=== PATIENT | female | born 1955 | race Caucasian/White ===

== ENCOUNTER → 2016-03-25 | Outpatient (CLI) | payer OTHER ==
[2016-03-25 17:07] LABS: BASOPHILS # (AUTO) 0.13 10*3/UL; BASOPHILS % (AUTO) 0.9 % (0-1); EOSINOPHILS % (AUTO) 2.3 % (0-8); HEMATOCRIT 47.8 % (37.0-47.0); HEMOGLOBIN 15.6 g/dL (12.0-16.0); IMM GRAN % (AUTO) 0.7 % (0-5); LYMPHOCYTES # (AUTO) 3.17 10*3/uL; LYMPHOCYTES % (AUTO) 21.7 % (10-50); MEAN CORPUSCULAR HEMOGLOBIN 29.1 PG (27-31); MEAN CORPUSCULAR HGB CONC 32.6 g/dL (33-37); MEAN PLATELET VOLUME 12.8 FL (7.4-12.2); MONOCYTES # (AUTO) 1.12 10*3/UL (0.3-0.8); MONOCYTES % (AUTO) 7.7 % (5-15); NEUTROPHILS # (AUTO) 9.76 10*3/UL; NEUTROPHILS % (AUTO) 66.7 % (50-80); RDW COEFFICIENT OF VARIATION 17.3 % (11.5-14.5); RED BLOOD COUNT 5.37 10^6/uL (4.20-5.40); WHITE BLOOD COUNT 14.61 10^3/uL (4.8-10.8)
[2016-03-25 17:16] LABS: CALCIUM 9.6 mg/dL (8.7-10.7); POTASSIUM 5.2 meq/L (3.8-5.2); TOTAL PROTEIN 8.8 g/dL (6.1-8.0)
[2016-03-25 18:12] LABS: PLATELET MORPHOLOGY COMMENT NORMAL MORPHOLOGY (NORM)
== END ==
LOC: MOB LAB 15:52
DX: E11.42 Type 2 diabetes mellitus with diabetic polyneuropathy (principal); Z79.4 Long term (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; E78.5 Hyperlipidemia, unspecified; I10 Essential (primary) hypertension; M86.671 Other chronic osteomyelitis, right ankle and foot; F17.210 Nicotine dependence, cigarettes, uncomplicated
CPT/HCPCS: 36415; 80053; 83036; 85025

== ENCOUNTER → 2016-03-27 | Outpatient (CLI) | payer OTHER | LOC: MMPC 10:00 | PROVIDERS: ATTEND Podiatrist Foot & Ankle Surgery | DX: L97.512 Non-pressure chronic ulcer of other part of right foot with fat layer exposed (principal); G62.89 Other specified polyneuropathies; L84 Corns and callosities; E11.621 Type 2 diabetes mellitus with foot ulcer; Z79.4 Long term (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; Z89.411 Acquired absence of right great toe; Z89.421 Acquired absence of other right toe(s) | CPT/HCPCS: 97597 ×2; G0463 ==

== ENCOUNTER 2016-03-28 19:29 | Emergency (ER) | payer OTHER ==
[2016-03-28] MEDS ORDERED: oxyCODONE ER 10 MG TAB PO ONE (20:02)
[2016-03-28] MEDS ORDERED: oxyCODONE ER Tab 20 MG TAB PO ONE (20:06)
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
[2016-03-28 20:28] VITALS: RESP 22; TEMP 97
== END 2016-03-28 21:55 | disposition home or self-care (01) ==
LOC: ER 19:29
DX: E11.40 Type 2 diabetes mellitus with diabetic neuropathy, unspecified (principal); M83.9 Adult osteomalacia, unspecified; Z79.4 Long term (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
CPT/HCPCS: 99282

== ENCOUNTER → 2016-04-11 | Outpatient (CLI) | payer OTHER | LOC: MMPC 10:00 | PROVIDERS: ATTEND Podiatrist Foot & Ankle Surgery | DX: L97.512 Non-pressure chronic ulcer of other part of right foot with fat layer exposed (principal); L97.522 Non-pressure chronic ulcer of other part of left foot with fat layer exposed; G62.89 Other specified polyneuropathies; E11.42 Type 2 diabetes mellitus with diabetic polyneuropathy; F17.210 Nicotine dependence, cigarettes, uncomplicated; E11.51 Type 2 diabetes mellitus with diabetic peripheral angiopathy without gangrene | CPT/HCPCS: 97597 ==

== ENCOUNTER → 2016-05-01 | Outpatient (CLI) | payer OTHER | LOC: MMPC 10:00 | PROVIDERS: ATTEND Podiatrist Foot & Ankle Surgery | DX: L84 Corns and callosities (principal); L97.511 Non-pressure chronic ulcer of other part of right foot limited to breakdown of skin; E13.51 Other specified diabetes mellitus with diabetic peripheral angiopathy without gangrene; E11.42 Type 2 diabetes mellitus with diabetic polyneuropathy; G62.89 Other specified polyneuropathies; E66.01 Morbid (severe) obesity due to excess calories; E11.621 Type 2 diabetes mellitus with foot ulcer; Z89.421 Acquired absence of other right toe(s); Z86.31 Personal history of diabetic foot ulcer; F17.210 Nicotine dependence, cigarettes, uncomplicated | CPT/HCPCS: 11056 ×2; G0463 ==

== ENCOUNTER 2016-05-03 16:24 | Emergency (ER) | payer OTHER ==
[2016-05-03 16:45] VITALS: RESP 16; TEMP 96.7
[2016-05-03] MEDS ORDERED: KETOROLAC 60 MG/2 ML VIAL IM ONE (16:45)
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
== END 2016-05-03 17:10 | disposition home or self-care (01) ==
LOC: ER 16:24
DX: G89.4 Chronic pain syndrome (principal); E11.40 Type 2 diabetes mellitus with diabetic neuropathy, unspecified; Z79.4 Long term (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
CPT/HCPCS: 96372; 99282 ×2; J1885

== ENCOUNTER → 2016-05-09 | Outpatient (CLI) | payer OTHER | LOC: MMPC 10:00 | PROVIDERS: ATTEND Podiatrist Foot & Ankle Surgery | DX: L97.521 Non-pressure chronic ulcer of other part of left foot limited to breakdown of skin (principal); L97.512 Non-pressure chronic ulcer of other part of right foot with fat layer exposed; E11.51 Type 2 diabetes mellitus with diabetic peripheral angiopathy without gangrene; E11.42 Type 2 diabetes mellitus with diabetic polyneuropathy; G62.89 Other specified polyneuropathies; E11.621 Type 2 diabetes mellitus with foot ulcer; Z89.431 Acquired absence of right foot | CPT/HCPCS: 99213; G0463 ==

== ENCOUNTER → 2016-05-23 | Outpatient (CLI) | payer OTHER | LOC: MMPC 10:00 | PROVIDERS: ATTEND Podiatrist Foot & Ankle Surgery | DX: L97.522 Non-pressure chronic ulcer of other part of left foot with fat layer exposed (principal); E13.51 Other specified diabetes mellitus with diabetic peripheral angiopathy without gangrene; E11.42 Type 2 diabetes mellitus with diabetic polyneuropathy; L97.511 Non-pressure chronic ulcer of other part of right foot limited to breakdown of skin; Z89.431 Acquired absence of right foot; G62.89 Other specified polyneuropathies | CPT/HCPCS: 97597 ×2; G0463 ==

== ENCOUNTER → 2016-05-29 | Outpatient (CLI) | payer OTHER | LOC: MMPC 09:00 | DX: G51.0 Bell's palsy (principal); F32.9 Major depressive disorder, single episode, unspecified; I34.0 Nonrheumatic mitral (valve) insufficiency; R11.0 Nausea; G62.89 Other specified polyneuropathies; E11.319 Type 2 diabetes mellitus with unspecified diabetic retinopathy without macular edema; E11.42 Type 2 diabetes mellitus with diabetic polyneuropathy; E13.51 Other specified diabetes mellitus with diabetic peripheral angiopathy without gangrene; E78.5 Hyperlipidemia, unspecified; I10 Essential (primary) hypertension; E55.9 Vitamin D deficiency, unspecified; G47.30 Sleep apnea, unspecified | CPT/HCPCS: 99213; G0463 ==

== ENCOUNTER → 2016-06-13 | Outpatient (CLI) | payer OTHER | LOC: MMPC 10:00 | PROVIDERS: ATTEND Podiatrist Foot & Ankle Surgery | DX: L97.511 Non-pressure chronic ulcer of other part of right foot limited to breakdown of skin (principal); L97.521 Non-pressure chronic ulcer of other part of left foot limited to breakdown of skin; E11.621 Type 2 diabetes mellitus with foot ulcer; Z89.411 Acquired absence of right great toe | CPT/HCPCS: 11042 ×2; G0463 ==

== ENCOUNTER → 2016-06-20 | Outpatient (CLI) | payer OTHER | LOC: MMPC 10:00 | PROVIDERS: ATTEND Podiatrist Foot & Ankle Surgery | DX: E11.621 Type 2 diabetes mellitus with foot ulcer (principal); G62.89 Other specified polyneuropathies; E66.01 Morbid (severe) obesity due to excess calories; Z89.431 Acquired absence of right foot; L97.512 Non-pressure chronic ulcer of other part of right foot with fat layer exposed; L97.522 Non-pressure chronic ulcer of other part of left foot with fat layer exposed | CPT/HCPCS: 99212; G0463 ==

== ENCOUNTER → 2016-06-27 | Outpatient (CLI) | payer OTHER | LOC: MMPC 10:00 | PROVIDERS: ATTEND Podiatrist Foot & Ankle Surgery | DX: L97.511 Non-pressure chronic ulcer of other part of right foot limited to breakdown of skin (principal); E11.621 Type 2 diabetes mellitus with foot ulcer; E11.40 Type 2 diabetes mellitus with diabetic neuropathy, unspecified; G62.89 Other specified polyneuropathies; Z89.411 Acquired absence of right great toe; Z89.421 Acquired absence of other right toe(s) | CPT/HCPCS: 99212; G0463 ==

== ENCOUNTER 2016-07-03 17:47 | Emergency (ER) | payer OTHER ==
[2016-07-03] MEDS ORDERED: Sodium Chloride 0.9% 1,000 ML PRIMARY IV ONE (18:13)
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
[2016-07-03 18:20] LABS: BASOPHILS # (AUTO) 0.09 10*3/UL; BASOPHILS % (AUTO) 0.5 % (0-1); EOSINOPHILS # (AUTO) 0.18 10*3/UL; EOSINOPHILS % (AUTO) 1.1 % (0-8); HEMATOCRIT 45.1 % (37.0-47.0); HEMOGLOBIN 14.4 g/dL (12.0-16.0); LYMPHOCYTES # (AUTO) 2.14 10*3/uL; MEAN CORPUSCULAR HEMOGLOBIN 29.1 PG (27-31); MEAN CORPUSCULAR HGB CONC 31.9 g/dL (33-37); MEAN CORPUSCULAR VOLUME 91.3 FL (81-99); MEAN PLATELET VOLUME 12.2 FL (7.4-12.2); MONOCYTES # (AUTO) 1.53 10*3/UL (0.3-0.8); MONOCYTES % (AUTO) 9.2 % (5-15); NEUTROPHILS # (AUTO) 12.59 10*3/UL; NEUTROPHILS % (AUTO) 75.7 % (50-80); RED BLOOD COUNT 4.94 10^6/uL (4.20-5.40)
[2016-07-03 18:21] LABS: PLATELET MORPHOLOGY COMMENT NORMAL MORPHOLOGY (NORM); RBC MORPHOLOGY COMMENT NORMAL MORPHOLOGY (NORM); WBC MORPHOLOGY COMMENT NORMAL MORPHOLOGY (NORM)
[2016-07-03 18:26] LABS: BUN/CREATININE RATIO 32.5 (6-20); CALCIUM 8.8 mg/dL (8.7-10.7); MAGNESIUM 1.9 mg/dL (1.6-2.4); SERUM ALBUMIN 3.8 g/dL (3.5-4.8)
[2016-07-03 18:48] LABS: FREE T4 (FREE THYROXINE) 1.22 ng/dL (0.93-1.71)
[2016-07-03] MEDS ORDERED: SODIUM POLYSTYRENE SULFONATE 15 GM/60 ML PO ONE (19:36)
[2016-07-03 19:43] LABS: BILIRUBIN,URINE SMALL (NEG); COLOR,URINE YELLOW; GLUCOSE, URINE (UA) NEGATIVE (NEG); NITRATE,URINE NEGATIVE (NEG); OCCULT BLOOD,URINE NEGATIVE (NEG); PROTEIN,URINE 30 mg/dl (NEG); UROBILINOGEN,URINE 0.2 EU/dL (0.2)
[2016-07-03 19:45] LABS: CLARITY,URINE CLEAR (CLEAR); URINE SAMPLE TYPE VOID
[2016-07-03 19:46] LABS: RBC,URINE 0-2 /hpf; SQUAMOUS EPITHELIAL CELL,UR FEW; WBC,URINE 0-3
[2016-07-03] MEDS ORDERED: cefTRIAXone Inj 2 GM in Sodium Chloride 0.9% 100 ML IV ONE (19:49)
[2016-07-03] MEDS ORDERED: AZITHROMYCIN 250 MG TABLET PO ONE (19:49)
--- NOTE | 2016-07-03 20:27 | EKG ---
[address] [address] Measurements Intervals [place] Rate: 85 P: 27 [place]: 201 QRS: -57 QRSD: 103 T: 53 QT: 363 QTc: 405 Interpretive Statements SINUS RHYTHM LEFT ANTERIOR FASCICULAR BLOCK Compared to ECG 08/03/2015 15:27:44 Left anterior fascicular block now present Electronically Signed On 07-04-16 11:47:22 MDT by Wicho Martin [email or web address]
--- NOTE | 2016-07-03 20:48 | DI ---
XR CXR 2VW PA/LAT,07/03/2016 7:08 PM: Clinical History: Cough Previous Exam: November 09, 2015 Findings: PA and lateral views of the chest are obtained, and demonstrate some increased interstitial markings. There is flattening of the hemidiaphragms bilaterally. There is mild cardiomegaly and some mild increased interstitial markings. Impression: 1. Cardiomegaly and increased interstitial markings most consistent with congestive heart failure.
[2016-07-03 23:26] VITALS: RESP 22; TEMP 99.2
== END 2016-07-03 20:41 | disposition short-term general hospital (02) ==
LOC: ER 17:47
DX: E87.5 Hyperkalemia (principal); I50.9 Heart failure, unspecified; J18.9 Pneumonia, unspecified organism; R42 Dizziness and giddiness; R05 Cough; R55 Syncope and collapse; E11.40 Type 2 diabetes mellitus with diabetic neuropathy, unspecified; Z79.4 Long term (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
CPT/HCPCS: 36415; 71020; 80053; 81001; 81003; 83605; 83735; 83880; 84439; 84443; 85025; 87040; 93005; 93010; 96365; 99284; J0696; J7030; J7050

== ENCOUNTER 2016-07-09 14:25 | Emergency (ER) | payer OTHER ==
[2016-07-09] MEDS ORDERED: NORMAL SALINE 10 ML SYRINGE FLUSH IVP PRN (14:35)
[2016-07-09] MEDS ORDERED: Sodium Chloride 0.9% 1,000 ML PRIMARY IV ONE ×2 (14:35→16:28)
[2016-07-09] MEDS ORDERED: IPRATROPIUM/ALBUTEROL SULFATE 3 ML NEB NEB ONE (14:55)
--- NOTE | 2016-07-09 15:04 | EKG ---
[address] [place] [address] Measurements Intervals [place] Rate: 65 P: 23 IN: 189 QRS: -36 QRSD: 104 T: 24 QT: 416 QTc: 428 Interpretive Statements SINUS RHYTHM LEFT AXIS DEVIATION [QRS AXIS CHRONIC ST ELEVATION NOTED IN LEADS 1 AND AVL QUESTIONABLE ETIOLOGY Compared to ECG 07/03/2016 18:02:29 Left-axis deviation now present Left anterior fascicular block no longer present Electronically Signed On 07-09-16 15:09:22 MDT by Wicho Martin [email or web address]
[2016-07-09 15:06] LABS: HEMATOCRIT 44.3 % (37.0-47.0); HEMOGLOBIN 13.9 g/dL (12.0-16.0); MEAN CORPUSCULAR HEMOGLOBIN 29.3 PG (27-31); MEAN CORPUSCULAR HGB CONC 31.4 g/dL (33-37); MEAN CORPUSCULAR VOLUME 93.3 FL (81-99); MEAN PLATELET VOLUME 12.2 FL (7.4-12.2); RED BLOOD COUNT 4.75 10^6/uL (4.20-5.40)
[2016-07-09 15:40] LABS: VENOUS PH 7.33 (7.32-7.42)
[2016-07-09 15:48] LABS: PLATELET MORPHOLOGY COMMENT NORMAL MORPHOLOGY (NORM); RBC MORPHOLOGY COMMENT NORMAL MORPHOLOGY (NORM)
[2016-07-09 15:49] LABS: WBC MORPHOLOGY COMMENT SEE COMMENTS (NORM)
[2016-07-09 15:50] LABS: BAND NEUTROPHILS % 0 % (0-10); BASOPHILS % (MANUAL) 0 % (0-1); EOSINOPHILS % (MANUAL) 2 % (0-8); LYMPHOCYTES % (MANUAL) 37 % (10-50); MONOCYTES % (MANUAL) 6 % (0-12); NEUTROPHILS % (MANUAL) 55 % (50-80)
[2016-07-09 16:12] LABS: BILIRUBIN,URINE NEGATIVE (NEG); COLOR,URINE YELLOW; GLUCOSE, URINE (UA) NEGATIVE (NEG); NITRATE,URINE NEGATIVE (NEG); OCCULT BLOOD,URINE Trace-lysed (NEG); PH,URINE 5.5 (5.0-8.5); PROTEIN,URINE NEGATIVE (NEG); UROBILINOGEN,URINE 0.2 EU/dL (0.2)
[2016-07-09 16:24] LABS: CLARITY,URINE CLEAR (CLEAR)
[2016-07-09 16:25] LABS: BACTERIA,URINE RARE; SQUAMOUS EPITHELIAL CELL,UR FEW; URINE CASTS RARE; URINE SAMPLE TYPE CLEAN CATCH URINE
--- NOTE | 2016-07-09 16:58 | DI ---
XR CXR 2VW PA/LAT,07/09/2016 2:35 PM: Clinical History: Hypoxia Previous Exam: July 03, 2016 Findings: PA and lateral views of the chest are obtained, and demonstrate stable healing right anterior rib fra ctures. There is stable cardiomegaly. There is no infiltrate nor effusion. Impression: No acute disease.
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
[2016-07-09 17:54] LABS: BLOOD UREA NITROGEN 58 mg/dL (7-22); BUN/CREATININE RATIO 41.42 (6-20); C-REACTIVE PROTEIN < 0.5 mg/dL (0.0-0.9); CALCIUM 8.6 mg/dL (8.7-10.7); EST GLOMERULAR FILTRATION 38 (>60 ml/min/1.73m(2)); MAGNESIUM 1.4 mg/dL (1.6-2.4); SERUM ALBUMIN 3.6 g/dL (3.5-4.8)
[2016-07-09] MEDS ORDERED: Magnesium Sulfate 1gm (Premix) 1 GM in Dextrose 1 BAG IV ONE (18:02)
[2016-07-09 18:04] VITALS: TEMP 96.4
[2016-07-09] MEDS ORDERED: Magnesium Sulfate 1gm (Premix) 100 ML IV ONE (18:21)
[2016-07-09 20:00] VITALS: RESP 18
== END 2016-07-09 19:42 | disposition home or self-care (01) ==
LOC: ER 14:25
DX: I95.9 Hypotension, unspecified (principal); E83.42 Hypomagnesemia; J44.9 Chronic obstructive pulmonary disease, unspecified; R06.02 Shortness of breath; R42 Dizziness and giddiness; R05 Cough; E11.40 Type 2 diabetes mellitus with diabetic neuropathy, unspecified; Z79.4 Long term (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
CPT/HCPCS: 36415; 71020; 80053; 81001; 81003; 82803; 82948; 83605; 83735; 83880; 84484; 85007; 85379; 86140; 93005; 93010; 94640; 96361; 96365; 99284 ×2; J7620; 87040; J3475; J7030

== ENCOUNTER → 2016-07-10 | Outpatient (CLI) | payer OTHER | LOC: MMPC 10:00 | PROVIDERS: ATTEND Podiatrist Foot & Ankle Surgery | DX: L97.512 Non-pressure chronic ulcer of other part of right foot with fat layer exposed (principal); L97.511 Non-pressure chronic ulcer of other part of right foot limited to breakdown of skin; L97.522 Non-pressure chronic ulcer of other part of left foot with fat layer exposed; E11.42 Type 2 diabetes mellitus with diabetic polyneuropathy; G62.89 Other specified polyneuropathies; Z89.421 Acquired absence of other right toe(s); F17.210 Nicotine dependence, cigarettes, uncomplicated | CPT/HCPCS: 97597 ×2; G0463 ==

== ENCOUNTER → 2016-07-16 | Outpatient (CLI) | payer OTHER | LOC: MMPC 11:11 | DX: J44.9 Chronic obstructive pulmonary disease, unspecified (principal); E11.21 Type 2 diabetes mellitus with diabetic nephropathy; E11.319 Type 2 diabetes mellitus with unspecified diabetic retinopathy without macular edema; E11.42 Type 2 diabetes mellitus with diabetic polyneuropathy; E78.5 Hyperlipidemia, unspecified; I10 Essential (primary) hypertension; I27.2 Other secondary pulmonary hypertension; E66.01 Morbid (severe) obesity due to excess calories; G47.30 Sleep apnea, unspecified | CPT/HCPCS: 99213; G0463 ==

== ENCOUNTER → 2016-07-23 | Outpatient (CLI) | payer OTHER ==
[2016-07-23 16:49] LABS: HEMOGLOBIN A1C 7.65 % (4.2-6.0)
[2016-07-23 16:54] LABS: BUN/CREATININE RATIO 29.09 (6-20)
[2016-07-23 16:55] LABS: CALCIUM 8.6 mg/dL (8.7-10.7)
== END ==
LOC: MOB LAB 15:51
DX: E11.9 Type 2 diabetes mellitus without complications (principal); E11.42 Type 2 diabetes mellitus with diabetic polyneuropathy; Z79.4 Long term (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; I10 Essential (primary) hypertension; F17.200 Nicotine dependence, unspecified, uncomplicated
CPT/HCPCS: 36415; 80048; 83036

== ENCOUNTER → 2016-07-25 | Outpatient (CLI) | payer OTHER | LOC: MMPC 10:00 | PROVIDERS: ATTEND Podiatrist Foot & Ankle Surgery | DX: L97.511 Non-pressure chronic ulcer of other part of right foot limited to breakdown of skin (principal); L97.421 Non-pressure chronic ulcer of left heel and midfoot limited to breakdown of skin; L97.521 Non-pressure chronic ulcer of other part of left foot limited to breakdown of skin; G62.89 Other specified polyneuropathies; E11.621 Type 2 diabetes mellitus with foot ulcer | CPT/HCPCS: 99212; G0463 ==

== ENCOUNTER → 2016-08-06 | Outpatient (CLI) | payer OTHER | LOC: MMPC 11:11 | DX: J44.9 Chronic obstructive pulmonary disease, unspecified (principal); G62.89 Other specified polyneuropathies; G47.30 Sleep apnea, unspecified; G51.0 Bell's palsy; E78.5 Hyperlipidemia, unspecified; E66.01 Morbid (severe) obesity due to excess calories; E55.9 Vitamin D deficiency, unspecified; E11.42 Type 2 diabetes mellitus with diabetic polyneuropathy; I34.0 Nonrheumatic mitral (valve) insufficiency; F17.210 Nicotine dependence, cigarettes, uncomplicated | CPT/HCPCS: 99213; G0463 ==

== ENCOUNTER → 2016-08-14 | Outpatient (CLI) | payer OTHER | LOC: MMPC 10:00 | PROVIDERS: ATTEND Podiatrist Foot & Ankle Surgery | DX: L97.821 Non-pressure chronic ulcer of other part of left lower leg limited to breakdown of skin (principal); L97.312 Non-pressure chronic ulcer of right ankle with fat layer exposed; G62.89 Other specified polyneuropathies | CPT/HCPCS: 99212 ==

== ENCOUNTER → 2016-08-22 | Outpatient (CLI) | payer OTHER | LOC: MMPC 10:00 | PROVIDERS: ATTEND Podiatrist Foot & Ankle Surgery | DX: L97.811 Non-pressure chronic ulcer of other part of right lower leg limited to breakdown of skin (principal); L97.421 Non-pressure chronic ulcer of left heel and midfoot limited to breakdown of skin; L97.511 Non-pressure chronic ulcer of other part of right foot limited to breakdown of skin; G62.89 Other specified polyneuropathies; E66.01 Morbid (severe) obesity due to excess calories; E11.621 Type 2 diabetes mellitus with foot ulcer; F17.210 Nicotine dependence, cigarettes, uncomplicated ==

== ENCOUNTER → 2016-09-12 | Outpatient (CLI) | payer OTHER | LOC: MMPC 10:00 | PROVIDERS: ATTEND Podiatrist Foot & Ankle Surgery | DX: E11.621 Type 2 diabetes mellitus with foot ulcer (principal); E11.42 Type 2 diabetes mellitus with diabetic polyneuropathy; L97.521 Non-pressure chronic ulcer of other part of left foot limited to breakdown of skin; E66.01 Morbid (severe) obesity due to excess calories; Z89.431 Acquired absence of right foot; G62.89 Other specified polyneuropathies; L97.221 Non-pressure chronic ulcer of left calf limited to breakdown of skin; L84 Corns and callosities; Z89.411 Acquired absence of right great toe | CPT/HCPCS: 11055 ×2; 99212; G0463 ==

== ENCOUNTER → 2016-09-19 | Outpatient (CLI) | payer OTHER | LOC: MMPC 10:00 | PROVIDERS: ATTEND Podiatrist Foot & Ankle Surgery | DX: L97.522 Non-pressure chronic ulcer of other part of left foot with fat layer exposed (principal); E11.621 Type 2 diabetes mellitus with foot ulcer; G62.89 Other specified polyneuropathies; S90.425A Blister (nonthermal), left lesser toe(s), initial encounter | CPT/HCPCS: 97597 ×2; G0463 ==

== ENCOUNTER 2016-09-29 15:00 | Emergency (ER) | payer OTHER ==
[2016-09-29] MEDS ORDERED: ONDANSETRON 4 MG/2 ML VIAL IVP ONE (15:17)
[2016-09-29] MEDS ORDERED: Sodium Chloride 0.9% 1,000 ML PRIMARY IV ONE (15:17)
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
[2016-09-29 15:26] VITALS: RESP 18; TEMP 95.1
[2016-09-29 15:41] LABS: BASOPHILS # (AUTO) 0.14 10*3/UL; BASOPHILS % (AUTO) 1.1 % (0-1); EOSINOPHILS # (AUTO) 0.23 10*3/UL; EOSINOPHILS % (AUTO) 1.9 % (0-8); HEMATOCRIT 42.9 % (37.0-47.0); HEMOGLOBIN 14.1 g/dL (12.0-16.0); LYMPHOCYTES # (AUTO) 2.07 10*3/uL; MEAN CORPUSCULAR HEMOGLOBIN 29.6 PG (27-31); MEAN CORPUSCULAR HGB CONC 32.9 g/dL (33-37); MEAN CORPUSCULAR VOLUME 89.9 FL (81-99); MEAN PLATELET VOLUME 12.9 FL (7.4-12.2); MONOCYTES # (AUTO) 1.23 10*3/UL (0.3-0.8); NEUTROPHILS # (AUTO) 8.57 10*3/UL; NEUTROPHILS % (AUTO) 69.6 % (50-80); RED BLOOD COUNT 4.77 10^6/uL (4.20-5.40)
[2016-09-29 15:52] LABS: BUN/CREATININE RATIO 32.72 (6-20); MAGNESIUM 1.8 mg/dL (1.6-2.4); SERUM ALBUMIN 3.7 g/dL (3.5-4.8)
[2016-09-29 15:57] LABS: PLATELET MORPHOLOGY COMMENT NORMAL MORPHOLOGY (NORM); RBC MORPHOLOGY COMMENT NORMAL MORPHOLOGY (NORM); WBC MORPHOLOGY COMMENT NORMAL MORPHOLOGY (NORM)
[2016-09-29 16:44] LABS: HEMOGLOBIN A1C 8.93 % (4.2-6.0)
--- NOTE | 2016-09-29 17:44 | DI ---
CLINICAL HISTORY: Syncope. PREVIOUS EXAM: July 09, 2016. FINDINGS/TECHNIQUE: A single frontal radiograph of the chest is obtained, and demonstrates diffuse C OPD. There is stable cardiomegaly. There is no evidence of infiltrate nor effusion. Skeletal structures are unremarkable. There are some increased interstitial markings which are stable . IMPRESSION: 1. No acute cardiopulmonary disease.
--- NOTE | 2016-09-29 17:45 | DI ---
CLINICAL HISTORY: Syncope. PREVIOUS EXAM: March 21, 2015. FINDINGS/TECHNIQUE: Multiple helically acquired CT images are obtained through the brain without con trast, and demonstrate normal, symmetric ventricles and other CSF containing spaces. There is no mass , hemorrhage or midline shift. The surrounding soft tissue and osseous structures are unremarkable. IMPRESSION: 1. Normal CT head.
--- NOTE | 2016-09-29 17:56 | EKG ---
[address] [place] [address] Measurements Intervals [place] Rate: 68 P: 59 AK: 195 QRS: -43 QRSD: 108 T: 35 QT: 428 QTc: 445 Interpretive Statements SINUS RHYTHM MARKED LEFT AXIS DEVIATION [QRS AXIS < -30] MINIMAL ST DEPRESSION [0.025+ mV ST DEPRESSION] Compared to ECG 07/09/2016 15:06:33 No significant changes Electronically Signed On 09-30-16 08:00:24 MDT by Bertin De La O MD [email or web address]
== END 2016-09-29 19:05 | disposition home or self-care (01) ==
LOC: ER 15:00
DX: R55 Syncope and collapse (principal); R11.2 Nausea with vomiting, unspecified; Z79.4 Long term (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; E11.40 Type 2 diabetes mellitus with diabetic neuropathy, unspecified
CPT/HCPCS: 70450; 71010; 80053; 83036; 83735; 84443; 84484; 85025; 93005; 93010; 96374; 99284 ×2; J2405; J7030

== ENCOUNTER → 2016-10-10 | Outpatient (CLI) | payer OTHER | LOC: MMPC 10:00 | PROVIDERS: ATTEND Podiatrist Foot & Ankle Surgery | DX: L97.421 Non-pressure chronic ulcer of left heel and midfoot limited to breakdown of skin (principal); L97.521 Non-pressure chronic ulcer of other part of left foot limited to breakdown of skin; L97.411 Non-pressure chronic ulcer of right heel and midfoot limited to breakdown of skin; G62.89 Other specified polyneuropathies; E11.51 Type 2 diabetes mellitus with diabetic peripheral angiopathy without gangrene; Z89.431 Acquired absence of right foot | CPT/HCPCS: 99213; G0463 ==

== ENCOUNTER 2017-01-16 15:01 | Inpatient (IN) ==
[2017-01-16] MEDS ORDERED: NORMAL SALINE 10 ML SYRINGE FLUSH IVP PRN ×2 (15:02→17:32)
[2017-01-16] MEDS ORDERED: Sodium Chloride 0.9% 1,000 ML PRIMARY IV ONE ×2 (15:02→16:24)
[2017-01-16 15:14] LABS: Hematocrit [HCT] 50.4 % (37.0-47.0); Hemoglobin [HGB] 17.3 g/dL (12.0-16.0); MEAN CORPUSCULAR HGB CONC 34.4 g/dL (33-37); MEAN CORPUSCULAR VOLUME 93 FL (81-99); MEAN PLATELET VOLUME 10.1 FL (7.4-12.2); NEUTROPHILS % (AUTO) 64.4 % (50-80); RED BLOOD COUNT 5.43 10^6/uL (4.20-5.40)
[2017-01-16 15:15] LABS: BASOPHILS % (AUTO) 1.2 % (0-1); EOSINOPHILS # (AUTO) 0.24 10*3/UL; EOSINOPHILS % (AUTO) 1.4 % (0-8); LYMPHOCYTES # (AUTO) 4.11 10*3/uL; MONOCYTES # (AUTO) 1.47 10*3/UL (0.3-0.8); MONOCYTES % (AUTO) 8.7 % (5-15); NEUTROPHILS # (AUTO) 10.89 10*3/UL; PLATELET MORPHOLOGY COMMENT NORMAL MORPHOLOGY (NORM); RBC MORPHOLOGY COMMENT NORMAL MORPHOLOGY (NORM); WBC MORPHOLOGY COMMENT NORMAL MORPHOLOGY (NORM)
[2017-01-16 15:24] LABS: BLOOD UREA NITROGEN 30 mg/dL (7-22); BUN/CREATININE RATIO 18.75 (6-20); MAGNESIUM 1.6 mg/dL (1.6-2.4); SERUM ALBUMIN 4.1 g/dL (3.5-4.8)
[2017-01-16 15:36] LABS: VENOUS PH 7.35 (7.32-7.42)
--- NOTE | 2017-01-16 15:53 | DI ---
EXAM: XR Chest, 1 View CLINICAL HISTORY: Physician Notes: Tech Comments: TECHNIQUE: Frontal view of the chest. COMPARISON: 09/29/16. FINDINGS/IMPRESSION: Once again, there is mild cardiomegaly. Suspect mild vascular congestion.
--- NOTE | 2017-01-16 15:55 | EKG ---
[address] [address] Measurements Intervals [place] Rate: 83 P: 61 [place]: 215 QRS: -51 QRSD: 102 T: 34 QT: 394 QTc: 434 Interpretive Statements SINUS RHYTHM WITH FIRST DEGREE AV BLOCK LEFT ANTERIOR FASCICULAR BLOCK NONSPECIFIC ST CHANGE IN LEADS 1 AND AVL Compared to ECG 09/29/2016 15:23:51 First degree AV block now present Left anterior fascicular block now present ST (T wave) deviation still present Electronically Signed On 01-17-17 17:22:21 [facility] by Wicho Martin [email or web address]
[2017-01-16] MEDS ORDERED: cefTRIAXone Inj 2 GM in Sodium Chloride 0.9% 100 ML IV ONE (16:09)
--- NOTE | 2017-01-16 16:28 | DI ---
EXAM: CT Head Without Intravenous Contrast CLINICAL HISTORY: Physician Notes: Tech Comments: TECHNIQUE: Axial computed tomography images of the head/brain without intravenous contrast. COMPARISON: 09/29/16 FINDINGS: Brain: Unremarkable. No hemorrhage. No significant white matter disease. No edema. Ventricles: Unremarkable. No ventriculomegaly. Bones/joints: Unremarkable. No acute fracture. Soft tissues: Unremarkable. Sinuses: Unremarkable as visualized. No acute sinusitis. Mastoid air cells: Unremarkable as visualized. No mastoid effusion. IMPRESSION: Normal head/brain CT.
--- NOTE | 2017-01-16 17:11 | PDOC ---
HPI - History of Present Illness History of Present Illness: Patient comes to the ER not feeling well and was very lightheaded confused some increased shortness of breath with trying to make Thanksgiving dinner she does report that she took 2 trazodone instead of her pain meds EMS saw her she was hypotensive with systolic blood pressure in the 60s at some confusion denies fever or chills vomiting abdominal pain she was started on antibiotics last week by Dr. Severino for foot ulcer which he debrided it debrided on the right heel and left great toe Past Medical History Medical History: 1. COPD. 2. Diabetes mellitus type II complicated by peripheral neuropathy. 3. Hypertension. 4. Tobacco abuse. 5. Chronic pain syndrome related to peripheral neuropathy. 6. Hormone replacement therapy status post hysterectomy with severe vasomotor symptoms. 7. 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 8. Hypercholesterolemia. 9. Renal insufficiency, stage II. 10. Chronic ulceration plantar right second metatarsal head. Apparently associated with osteomyelitis, on daptomycin currently. Surgical History: 1. Hysterectomy. 2. Carpal tunnel repair. 3. Artery repair on her right wrist. 4. Amputation of some toes on her right foot. 5. Appendectomy Pertinent Family History: Mother with complications of diabetes Past Social History: Smokes and states she's had for per day, doesn't drink, lives alone here in [place] she has 4 cats. No children. In the Past 12 Months, Have Used or Abuse Any of the Following Substance: None Medication / Allergies Home Medications: Home Medications Medication Instructions Recorded Confirmed Type Multivitamin [Daily Vitamin] 1 tab PO DAILY tab 11/03/13 01/16/17 History Pregabalin [Lyrica] 1 tab PO TID #90 cap 11/03/13 01/16/17 History Cholecalciferol (Vitamin D3) 1 cap PO QD #30 cap 05/19/14 01/16/17 History [Vitamin D3] Sertraline HCl [Zoloft] 1 tab PO DAILY #30 tab 09/12/14 01/16/17 History Blood Sugar Diagnostic [Contour] 1 strip IN 5XD #450 strip 09/01/15 01/16/17 History Omeprazole 1 cap PO QD PRN #30 cap 11/21/15 01/16/17 History Sodium Chloride [Wound Wash Saline] 210 ml MC BID #1 spray 01/02/16 01/16/17 Rx Pen Needle, Diabetic [Pen [place]] 1 ea MC BID #60 unit 02/13/16 01/16/17 Rx Albuterol Sulfate [Ventolin Hfa] 2 puff INH Q4-6H #1 inh 04/29/16 01/16/17 Rx Morphine Sulfate [Ms Contin] 1 tab PO TID #90 tab 05/29/16 01/16/17 History Furosemide [Lasix] 1 tab PO DAILY #90 tab 07/17/16 01/16/17 Rx Estrogens, Conj Vaginal Cream 1 gm VAGINAL DAILY #1 tube 10/18/16 01/16/17 Clinic [Premarin Vaginal Cream] Simvastatin 1 tab PO QD #90 tab 10/21/16 01/16/17 Clinic Sitagliptin Phos/Metformin HCl 1 tab PO BID #180 tab 10/21/16 01/16/17 Clinic [Janumet 50-1,000 Mg Tablet] Lisinopril 1 tab PO QD #30 tab 10/24/16 01/16/17 Clinic trazodone 50 mg tablet 50 mg PO QHS #30 tab 11/19/16 01/16/17 Rx montelukast 10 mg tablet 10 mg PO QHS #30 tab 12/05/16 01/16/17 Rx insulin aspar prt-insulin aspart 35 unit SUBCUT QPM #15 ml 12/06/16 01/16/17 Rx 100 unit/mL (70-30) subcutaneous soln insulin aspar prt-insulin aspart 40 unit SUBCUT QAM #15 ml 12/06/16 01/16/17 Rx 100 unit/mL (70-30) subcutaneous soln budesonide-formoterol HFA 160 2 puff INH BID #1 inh 12/23/16 01/16/17 Rx mcg-4.5 mcg/actuation aerosol inhaler estradiol 0.05 mg/24 hr weekly 1 patch TRANSDERM 2XW #1 box 12/23/16 01/16/17 Rx transdermal patch cephalexin 500 mg capsule 500 mg PO BID #30 cap 01/08/17 01/16/17 Rx chlorhexidine gluconate 4 % 1 applic TOPICAL ONCE #236 ml 01/08/17 01/16/17 Rx topical liquid tiotropium bromide 18 mcg capsule 18 mcg INH QD #30 inhaler 01/13/17 01/16/17 Rx with inhalation device Pva/Gentian Marlyn/Methyl Blue 0 unit .ROUTE .MEDSUPPLY 01/16/17 01/16/17 History [Hydrofera Blue 2"X2" Dressing] Allergies/Adverse Reactions: Allergies 3 Allergy/AdvReac Type Severity Reaction Status Date / Time adhesive Allergy RASH Verified 01/16/17 18:33 Review of Systems - Review of Systems All Systems: Reviewed & No Additional Complaints Except as Stated - Respiratory Respiratory: REPORTS: Cough - Cardiovascular Cardiovascular: DENIES: Negative System Review, Chest Pain, Edema, Syncope, Palpitations, Orthopnea, Paroxysmal Nocturnal Dyspnea, Other, See HPI - Gastrointestinal Gastrointestinal / Abdominal: DENIES: Negative System Review, Nausea, Vomiting, Diarrhea, Constipation, Abdominal Pain, Bloody Stool, Poor Appetite, Heartburn, Regurgitation, Bloating, Lactose Intolerance, Melena, Bright Red Blood per Rectum, Other, See HPI - Musculoskeletal Musculoskeletal: REPORTS: Other ( left great toe and right heel open wound does not look infected) Exam - Vitals Vital Signs: Vital Signs Height 5 ft 8 in Weight 250 lb - General General Appearance: No Acute Distress, Cooperative - Neck Neck Exam: Normal Inspection, Full ROM - Respiratory Respiratory Exam: POSITIVE: Clear to Auscultation - Bilaterally, Breathing Non Labored, Normal To Percussion - Cardiovascular Cardiovascular Exam: POSITIVE: RRR, No Murmur, No Clicks - GI/Abdominal GI/Abdominal Exam: POSITIVE: Normal Bowel Sounds, Non Tender, Non Distended - Extremities Additional Extremities Exam Details: Ulcers on her feet do not look infected - Neurological Neurological Exam: POSITIVE: Oriented x 3, Normal Gait, CN II-XII Intact Results - Labs CBC and BMP: 01/17/17 05:55 01/17/17 09:23 Assessment and Plan - Patient Problems (1) Elevated WBCs Current Visit: Yes Status: Acute Comment: Etiology unclear patient is hypotensive don't know if secondary to her narcotics which she said she took extra or from infection she does not have a left shift I will give her IV boluses of normal saline started on vancomycin and cefepime IV blood cultures were drawn in the ER I will also get x-rays of both of her feet since she has 2 open wounds ratio. It is not osteo Code(s): D72.829 - Elevated white blood cell count, unspecified (2) Acute kidney injury Current Visit: Yes Status: Acute Comment: Creatinine 1.6. Was as high as 2 she is dehydrated most likely prerenal and will hydrate the patient recheck. Hyperkalemia might also improve with hydration it is mild at present time Code(s): N17.9 - Acute kidney failure, unspecified (3) COPD (chronic obstructive pulmonary disease) Current Visit: No Status: Chronic Comment: She is wheezing bilaterally this could all be COPD exacerbation CT scan of the chest noncontrast expending to rule out pneumonia Code(s): J44.9 - Chronic obstructive pulmonary disease, unspecified Qualifiers: (4) Current tobacco use Current Visit: No Status: Chronic Onset Date: 03/21/14 Comment: Counseled on quitting the last time she was in the hospital she was smoking in the room Code(s): Z72.0 - Tobacco use (5) Hyperkalemia Current Visit: Yes Status: Acute Comment: Follow labs in 3 hours repeat CMP Code(s): E87.5 - Hyperkalemia (6) Dehydration Current Visit: Yes Status: Acute Comment: IV fluids Code(s): E86.0 - Dehydration
[2017-01-16] MEDS ORDERED: ALBUTEROL SULFATE 8.5 GM HFA INHALER INH SCH (17:32)
[2017-01-16] MEDS ORDERED: INSULIN ASPART PROT SUBCUT SCH (17:32)
[2017-01-16] MEDS ORDERED: Magnesium Sulfate 2gm (Premix) 2 GM/50 ML BAG IV ONE (17:32)
[2017-01-16] MEDS ORDERED: OMEPRAZOLE 20 MG CAPSULE PO PRN (17:32)
[2017-01-16] MEDS ORDERED: INSULN ASP SUBCUT SCH (17:32)
[2017-01-16] MEDS ORDERED: Cefepime Inj 2 GM in Sodium Chloride 0.9% 100 ML IV SCH (18:00)
--- NOTE | 2017-01-16 18:01 | DI ---
EXAM: CT Chest Without Intravenous Contrast CLINICAL HISTORY: Leukocytosis: TECHNIQUE: Axial computed tomography images of the chest without intravenous contrast. COMPARISON: Noncontrast chest CT of 05/22/15. FINDINGS: There is aortic atherosclerosis. No aneurysm. Lumen is not assessed without intravenous contrast. Once again, the central pulmonary arteries are enlarged, consistent with pulmonary hypertension. As noted previously, there is calcific coronary atherosclerosis. This involves the left main and anterior descending arteries. Trace anterior pericardial fluid versus thickening is similar to prior. There are redemonstrated calcified pulmonary nodules, largest to the medial lower lobes suggesting prior granulomatous exposure. Chronic medial RLL atelectasis. No definite acute infectious pulmonary infiltrate. Several scattered pulmonary blebs/air cysts. Small, nonspecific mediastinal lymph nodes are grossly stable in the interval. Stable small calcification in the lateral aspect of the left lobe of the thyroid gland. There is no acute fracture. Cervicothoracic spondylosis is similar to prior. IMPRESSION: No acute thoracic disease process is identified. Stable chronic changes as detailed above.
--- NOTE | 2017-01-16 18:25 | DI ---
EXAM: XR Right Foot Complete, 3 or More Views CLINICAL HISTORY: Wound TECHNIQUE: Frontal, lateral and oblique views of the right foot. COMPARISON: 10/27/15. FINDINGS: Once again, there is evidence of a transmetatarsal right foot amputation. There is no clear evidence of acute osteomyelitis at the amputated osseous margins. No acute fracture. No dislocation. Chronic deformities of the distal right tibial and fibular shafts are unchanged in the interval. Generalized osteopenia. Vascular calcification. IMPRESSION: No clear evidence of active/acute osteomyelitis at the transmetatarsal amputation margins.
[2017-01-16] MEDS: Sodium Chl 0.45% 1,000 ML PRIMARY IV SCH (18:52)
[2017-01-16] MEDS ORDERED: ALBUTEROL SULFATE 8.5 GM HFA INHALER INH PRN (19:03)
[2017-01-16] MEDS: MORPHINE SULFATE 30 MG PO SCH (20:07)
[2017-01-16] MEDS: oxyCODONE-ACETAMINOPHEN 5-325 TAB PO PRN (20:20)
[2017-01-16] MEDS: Chlorhexidine Gluc Soap 4% 15 ML LIQUID TOPICAL SCH (20:58)
[2017-01-16] MEDS: sitaGLIPtin Tab 100 MG TAB PO SCH (20:59)
[2017-01-16] MEDS ORDERED: Montelukast Tab 10 MG TAB PO SCH (21:00)
[2017-01-16] MEDS: metFORMIN 500 MG TABLET PO SCH (21:00)
[2017-01-16] MEDS: PREGABALIN 100 MG CAPSULE PO SCH (21:00)
[2017-01-16] MEDS ORDERED: Simvastatin Tab 80 MG TAB PO SCH (21:00)
[2017-01-16] MEDS ORDERED: traZODone Tab 50 MG TAB PO SCH (21:00)
[2017-01-16] MEDS ORDERED: FORMOTEROL FUMARATE INH SCH (21:00)
[2017-01-16] MEDS ORDERED: BUDESONIDE INH SCH (21:00)
[2017-01-16] MEDS: HYDROmorphone 2 MG/1 ML IVP PRN (21:55)
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
[2017-01-17] MEDS: oxyCODONE-ACETAMINOPHEN 5-325 TAB PO PRN ×4 (00:10→13:40)
[2017-01-17 00:39] LABS: BUN/CREATININE RATIO 19.37 (6-20); SERUM ALBUMIN 3.1 g/dL (3.5-4.8)
[2017-01-17] MEDS: Sodium Chl 0.45% 1,000 ML PRIMARY IV SCH (03:53)
[2017-01-17] MEDS: BUDESONIDE INH SCH ×3 (04:51→09:54)
[2017-01-17] MEDS: FORMOTEROL FUMARATE INH SCH ×3 (04:51→09:54)
[2017-01-17] MEDS: HYDROmorphone 2 MG/1 ML IVP PRN (06:12)
[2017-01-17] MEDS ORDERED: TIOTROPIUM BROMIDE 18 MCG CAPSULE INH SCH (07:00)
[2017-01-17] MEDS ORDERED: sitaGLIPtin Tab 100 MG TAB PO SCH (07:00)
[2017-01-17 07:08] LABS: BASOPHILS # (AUTO) 0.08 10*3/UL; BASOPHILS % (AUTO) 0.7 % (0-1); EOSINOPHILS % (AUTO) 1.8 % (0-8); Hematocrit [HCT] 41.6 % (37.0-47.0); Hemoglobin [HGB] 14.2 g/dL (12.0-16.0); LYMPHOCYTES # (AUTO) 2.08 10*3/uL; MEAN CORPUSCULAR HEMOGLOBIN 31.3 PG (27-31); MEAN CORPUSCULAR VOLUME 92 FL (81-99); MEAN PLATELET VOLUME 10.1 FL (7.4-12.2); MONOCYTES # (AUTO) 1.15 10*3/UL (0.3-0.8); MONOCYTES % (AUTO) 10.4 % (5-15); NEUTROPHILS # (AUTO) 7.55 10*3/UL; NEUTROPHILS % (AUTO) 68.3 % (50-80); PLATELET MORPHOLOGY COMMENT NORMAL MORPHOLOGY (NORM); RBC MORPHOLOGY COMMENT NORMAL MORPHOLOGY (NORM); RED BLOOD COUNT 4.52 10^6/uL (4.20-5.40); WBC MORPHOLOGY COMMENT NORMAL MORPHOLOGY (NORM)
[2017-01-17] MEDS: INSULN ASP SUBCUT SCH ×2 (07:09→10:33)
[2017-01-17] MEDS: INSULIN ASPART PROT SUBCUT SCH ×2 (07:09→10:33)
[2017-01-17 07:54] VITALS: O2SAT 92
[2017-01-17] MEDS ORDERED: Cefepime Inj 2 GM in Sodium Chloride 0.9% 100 ML IV SCH (08:00)
[2017-01-17] MEDS: sitaGLIPtin Tab 100 MG TAB PO SCH (08:13)
[2017-01-17] MEDS: PREGABALIN 100 MG CAPSULE PO SCH (08:13)
[2017-01-17] MEDS: metFORMIN 500 MG TABLET PO SCH (08:13)
[2017-01-17] MEDS: MORPHINE SULFATE 30 MG PO SCH (08:14)
[2017-01-17] MEDS ORDERED: Multivitamin Tab 1 TAB PO SCH (09:00)
[2017-01-17] MEDS ORDERED: ESTROGENS,CONJUGATED 30 GM CREAM VAGINAL SCH (09:00)
[2017-01-17] MEDS ORDERED: Chlorhexidine Gluc Soap 4% 15 ML LIQUID TOPICAL SCH ×2 (09:00→09:15)
[2017-01-17] MEDS ORDERED: FUROSEMIDE 20 MG TABLET PO SCH (09:00)
[2017-01-17] MEDS ORDERED: Sertraline Tab 50 MG TAB PO SCH (09:00)
[2017-01-17] MEDS ORDERED: CHOLECALCIFEROL 1000 IU TABLET PO SCH (09:00)
[2017-01-17 10:03] LABS: SERUM ALBUMIN 3.2 g/dL (3.5-4.8)
[2017-01-17] MEDS: Chlorhexidine Gluc Soap 4% 15 ML LIQUID TOPICAL SCH (10:41)
--- NOTE | 2017-01-17 12:23 | DCSUMMARY ---
Hospitalization Summary Hospital Course: Final Discharge Diagnosis: Current Visit Problems Problem Status Onset Code Acute kidney injury Acute N17.9 Hyperkalemia Acute E87.5 Dehydration Acute E86.0 Elevated WBCs Acute D72.829 Hypotension Acute I95.9 Diabetes Chronic E11.9 Renal insufficiency Chronic N28.9 Diagnostic Data, Laboratory Data, and Procedures of Signifigance: Laboratory Results 01/16/17 01/16/17 01/16/17 Range/Units 14:25 14:25 14:25 WBC 16.9 H (4.8-10.8) 10^3/uL RBC 5.43 H (4.20-5.40) 10^6/uL Hgb 17.3 H (12.0-16.0) g/dL Hct 50.4 H (37.0-47.0) % MCV 93 (81-99) FL MCH 32.0 H (27-31) PG MCHC 34.4 (33-37) g/dL RDW Coeff of Gus 13.1 (11.5-14.5) % Plt Count 201 (140-350) 10*3/uL MPV 10.1 (7.4-12.2) FL Neut % (Auto) 64.4 (50-80) % Lymph % (Auto) 24.3 (10-50) % [place] % (Auto) 8.7 (5-15) % Eos % (Auto) 1.4 (0-8) % Baso % (Auto) 1.2 H (0-1) % Neut # (Auto) 10.89 10*3/UL Lymph # (Auto) 4.11 10*3/uL [place] # (Auto) 1.47 H (0.3-0.8) 10*3/UL Eos # (Auto) 0.24 10*3/UL Baso # (Auto) 0.20 10*3/UL WBC Morphology Comment Normal morphology (NORM) Plt Morphology Comment Normal morphology (NORM) RBC Morph Comment Normal morphology (NORM) VBG pH (7.32-7.42) VBG pCO2 (45-55) mmHg VBG HCO3 (22-26) mmol/L VBG Base Excess (-2-2) MMOL/L Sodium 138 (135-145) meq/L Potassium 5.7 H (3.8-5.2) meq/L Chloride 103 (98-112) meq/L Carbon Dioxide 20 L (23-33) meq/L Anion Gap 15 (5-20) BUN 30 H (7-22) mg/dL Creatinine 1.6 H (0.50-1.20) mg/dL Estimated GFR 33 (>60 ml/min/1.73m(2)) BUN/Creatinine Ratio 18.75 (6-20) Glucose 187 H (78-110) mg/dL Calculated Osmolality 296.0 H (267-292) mOsm/kg Lactic Acid 2.5 H (0.70-2.10) MMOL/L Calcium 9.4 (8.7-10.7) mg/dL Magnesium 1.6 (1.6-2.4) mg/dL Total Bilirubin 1.1 (0.3-1.2) mg/dL AST 42 H (8-39) IU/L ALT 19 (9-52) IU/L Alkaline Phosphatase 110 (38-126) IU/L Troponin I < 0.012 (< 0.040) ng/mL C-Reactive Protein 1.0 H (0.0-0.9) mg/dL NT-Pro-B Natriuret Pep (0-125) PG/ML Total Protein 8.6 H (6.1-8.0) g/dL Albumin 4.1 (3.5-4.8) g/dL Globulin 4.5 H (2.50-4.10) g/dL Albumin/Globulin Ratio 0.90 L (1.3-2.0) mg/g Serum Alcohol < 10 (0-10) mg/dL 01/16/17 01/16/17 01/17/17 Range/Units 15:02 15:18 00:25 WBC (4.8-10.8) 10^3/uL RBC (4.20-5.40) 10^6/uL Hgb (12.0-16.0) g/dL Hct (37.0-47.0) % MCV (81-99) FL MCH (27-31) PG MCHC (33-37) g/dL RDW Coeff of Gus (11.5-14.5) % Plt Count (140-350) 10*3/uL MPV (7.4-12.2) FL Neut % (Auto) (50-80) % Lymph % (Auto) (10-50) % [place] % (Auto) (5-15) % Eos % (Auto) (0-8) % Baso % (Auto) (0-1) % Neut # (Auto) 10*3/UL Lymph # (Auto) 10*3/uL [place] # (Auto) (0.3-0.8) 10*3/UL Eos # (Auto) 10*3/UL Baso # (Auto) 10*3/UL WBC Morphology Comment (NORM) Plt Morphology Comment (NORM) RBC Morph Comment (NORM) VBG pH 7.35 (7.32-7.42) VBG pCO2 41 L (45-55) mmHg VBG HCO3 23 (22-26) mmol/L VBG Base Excess -3 L (-2-2) MMOL/L Sodium 140 (135-145) meq/L Potassium 4.6 D (3.8-5.2) meq/L Chloride 107 (98-112) meq/L Carbon Dioxide 23 (23-33) meq/L Anion Gap 10 (5-20) BUN 31 H (7-22) mg/dL Creatinine 1.6 H (0.50-1.20) mg/dL Estimated GFR 33 (>60 ml/min/1.73m(2)) BUN/Creatinine Ratio 19.37 (6-20) Glucose 116 H (78-110) mg/dL Calculated Osmolality 297.0 H (267-292) mOsm/kg Lactic Acid (0.70-2.10) MMOL/L Calcium 8.1 L (8.7-10.7) mg/dL Magnesium (1.6-2.4) mg/dL Total Bilirubin 0.4 D (0.3-1.2) mg/dL AST 21 (8-39) IU/L ALT 25 (9-52) IU/L Alkaline Phosphatase 72 (38-126) IU/L Troponin I (< 0.040) ng/mL C-Reactive Protein (0.0-0.9) mg/dL NT-Pro-B Natriuret Pep 540 H (0-125) PG/ML Total Protein 6.5 (6.1-8.0) g/dL Albumin 3.1 L (3.5-4.8) g/dL Globulin 3.4 (2.50-4.10) g/dL Albumin/Globulin Ratio 0.90 L (1.3-2.0) mg/g Serum Alcohol (0-10) mg/dL 01/17/17 01/17/17 01/17/17 Range/Units 05:55 09:23 09:23 WBC 11.0 H (4.8-10.8) 10^3/uL RBC 4.52 (4.20-5.40) 10^6/uL Hgb 14.2 (12.0-16.0) g/dL Hct 41.6 (37.0-47.0) % MCV 92 (81-99) FL MCH 31.3 H (27-31) PG MCHC 34.0 (33-37) g/dL RDW Coeff of Gus 13.5 (11.5-14.5) % Plt Count 120 L (140-350) 10*3/uL MPV 10.1 (7.4-12.2) FL Neut % (Auto) 68.3 (50-80) % Lymph % (Auto) 18.8 (10-50) % [place] % (Auto) 10.4 (5-15) % Eos % (Auto) 1.8 (0-8) % Baso % (Auto) 0.7 (0-1) % Neut # (Auto) 7.55 10*3/UL Lymph # (Auto) 2.08 10*3/uL [place] # (Auto) 1.15 H (0.3-0.8) 10*3/UL Eos # (Auto) 0.20 10*3/UL Baso # (Auto) 0.08 10*3/UL WBC Morphology Comment Normal morphology (NORM) Plt Morphology Comment Normal morphology (NORM) RBC Morph Comment Normal morphology (NORM) VBG pH (7.32-7.42) VBG pCO2 (45-55) mmHg VBG HCO3 (22-26) mmol/L VBG Base Excess (-2-2) MMOL/L Sodium 142 (135-145) meq/L Potassium 4.8 (3.8-5.2) meq/L Chloride 106 (98-112) meq/L Carbon Dioxide 24 (23-33) meq/L Anion Gap 12 (5-20) BUN 30 H (7-22) mg/dL Creatinine 1.2 (0.50-1.20) mg/dL Estimated GFR 46 (>60 ml/min/1.73m(2)) BUN/Creatinine Ratio 25.00 H (6-20) Glucose 168 H (78-110) mg/dL Calculated Osmolality 303.0 H (267-292) mOsm/kg Lactic Acid 0.7 (0.70-2.10) MMOL/L Calcium 8.8 (8.7-10.7) mg/dL Magnesium (1.6-2.4) mg/dL Total Bilirubin 0.4 (0.3-1.2) mg/dL AST 21 (8-39) IU/L ALT 24 (9-52) IU/L Alkaline Phosphatase 79 (38-126) IU/L Troponin I (< 0.040) ng/mL C-Reactive Protein (0.0-0.9) mg/dL NT-Pro-B Natriuret Pep (0-125) PG/ML Total Protein 6.5 (6.1-8.0) g/dL Albumin 3.2 L (3.5-4.8) g/dL Globulin 3.3 (2.50-4.10) g/dL Albumin/Globulin Ratio 0.90 L (1.3-2.0) mg/g Serum Alcohol (0-10) mg/dL History and Physical pertinent to Admission: Course of Hospitalization: This very nice 61-year-old female with multiple medical issues including diabetes chronic pain, was found to be used at home by EMS hypotension which resolved very quickly on my evaluation in the ER patient was awake alert and oriented 3 she felt her normal self she did have a white count. And some elevated creatinine which I believe is all prerenal. Lactic acid 0.7 her ulcers in bilateral feet do not look infected Dr. Severino debrided one of them and put her on some Keflex. Patient was rehydrated blood pressure and vitals are within normal limits her potassium is within normal limits and the BUN and creatinine back to 31.2 from 1.6 after hydration patient is very adamant about leaving and going home she does not want to be here. X-rays of the left foot did not show any osteo-x-ray of the right foot is pending. She will be put on Keflex 1 g every 8 for 10 days follow-up with Dr. Severino and follow-up with a new primary care physician Dr. Raygoza. She was very adamant on leaving no matter what she is stable at present time with stable vitals and improvement and all her blood work she did receive the 1 dose of cefepime and Vanco which were stopped in the past her ulcers were grown Proteus mirabilis which are sensitive to Keflex On the date of discharge, the patient was examined: Gen.: No acute distress, alert, nontoxic Heart: Regular rate and rhythm, no murmurs, clicks, gallops, or rubs Lungs: Clear to auscultation bilaterally, breathing is nonlabored Abdomen/GI: Normal tones on auscultation, soft, nontender, nondistended Musculoskeletal/extremities: No clubbing, cyanosis, or edema Vitals reviewed and are listed below Vital Signs (24 hrs) Temp Pulse Pulse Resp BP Pulse Ox 01/17/17 07:53 97.1 F 68 18 120/78 92 01/17/17 05:00 94 01/17/17 04:01 97.9 F 64 22 128/68 93 01/17/17 00:03 97.2 F 20 106/59 95 01/16/17 20:39 97.6 F 70 20 105/66 100 01/16/17 20:08 94 01/16/17 17:35 97.4 F 83 20 125/67 92 01/16/17 15:50 83 01/16/17 15:01 96.6 F L 118 H 14 60/40 92 Assessment and Plan: 1. As per discharge assessments above 2. Disposition: Home 3. Condition on discharge, stable and improved. 4. Diet: regular diet 5. Activities: resume normal activities 6. Follow-Up: 1. PCP Dr. Raygoza and Dr. Severino 2. 7. Medications at the Time of Discharge: Home Medications Medication Instructions Recorded Confirmed Type Multivitamin [Daily Vitamin] 1 tab PO DAILY tab 11/03/13 01/16/17 History Pregabalin [Lyrica] 1 tab PO TID #90 cap 11/03/13 01/16/17 History Cholecalciferol (Vitamin D3) 1 cap PO QD #30 cap 05/19/14 01/16/17 History [Vitamin D3] Sertraline HCl [Zoloft] 1 tab PO DAILY #30 tab 09/12/14 01/16/17 History Blood Sugar Diagnostic [Contour] 1 strip IN 5XD #450 strip 09/01/15 01/16/17 History Omeprazole 1 cap PO QD PRN #30 cap 11/21/15 01/16/17 History Sodium Chloride [Wound Wash Saline] 210 ml MC BID #1 spray 01/02/16 01/16/17 Rx Pen Needle, Diabetic [Pen [place]] 1 ea MC BID #60 unit 02/13/16 01/16/17 Rx Albuterol Sulfate [Ventolin Hfa] 2 puff INH Q4-6H #1 inh 04/29/16 01/16/17 Rx Morphine Sulfate [Ms Contin] 1 tab PO TID #90 tab 05/29/16 01/16/17 History Furosemide [Lasix] 1 tab PO DAILY #90 tab 07/17/16 01/16/17 Rx Estrogens, Conj Vaginal Cream 1 gm VAGINAL DAILY #1 tube 10/18/16 01/16/17 Clinic [Premarin Vaginal Cream] Simvastatin 1 tab PO QD #90 tab 10/21/16 01/16/17 Clinic Sitagliptin Phos/Metformin HCl 1 tab PO BID #180 tab 10/21/16 01/16/17 Clinic [Janumet 50-1,000 mg Tablet] Lisinopril 1 tab PO QD #30 tab 10/24/16 01/16/17 Clinic montelukast 10 mg tablet 10 mg PO QHS #30 tab 12/05/16 01/16/17 Rx insulin aspar prt-insulin aspart 35 unit SUBCUT QPM #15 ml 12/06/16 01/16/17 Rx 100 unit/mL (70-30) subcutaneous soln insulin aspar prt-insulin aspart 40 unit SUBCUT QAM #15 ml 12/06/16 01/16/17 Rx 100 unit/mL (70-30) subcutaneous soln budesonide-formoterol HFA 160 2 puff INH BID #1 inh 12/23/16 01/16/17 Rx mcg-4.5 mcg/actuation aerosol inhaler estradiol 0.05 mg/24 hr weekly 1 patch TRANSDERM 2XW #1 box 12/23/16 01/16/17 Rx transdermal patch chlorhexidine gluconate 4 % 1 applic TOPICAL ONCE #236 ml 01/08/17 01/16/17 Rx topical liquid tiotropium bromide 18 mcg capsule 18 mcg INH QD #30 inhaler 01/13/17 01/16/17 Rx with inhalation device Pva/Gentian Marlyn/Methyl Blue 0 unit .ROUTE .MEDSUPPLY 01/16/17 01/16/17 History [Hydrofera Blue 2"X2" Dressing] Cephalexin [Keflex] 1,000 mg PO TID #60 cap 01/17/17 Rx Insulin Aspart Prot/Insuln Asp 0 unit SUBCUT AC BK 01/17/17 Rx [Novolog Mix 70-30 Vial] Sertraline HCl [Zoloft] 100 mg PO DAILY tab 01/17/17 Rx 3 Generic Name Dose Route Start Last Admin Trade Name Freq PRN Reason Stop Dose Admin Albuterol Sulfate 2 puff 01/16/17 19:03 01/17/17 06:42 Proair Hfa Inhaler INH 2 puff RTQ4H PRN Administration Wheezing / Shortness of Breath Cephalexin 1,000 mg 01/17/17 15:00 Keflex PO TID SHERIDAN Chlorhexidine Gluconate 0 ml 01/17/17 09:15 01/17/17 10:37 Hibiclens Cleanser 4% TOPICAL 15 ml BID SHERIDAN Administration Cholecalciferol 2,000 iu 01/17/17 09:00 01/17/17 08:13 Vitamin D3 PO 2,000 iu DAILY SHERIDAN Administration Estrogens Conjugated 1 applic 01/17/17 09:00 01/17/17 10:25 Premarin Vaginal Cream VAGINAL Not Given DAILY SHERIDAN Furosemide 20 mg 01/17/17 09:00 01/17/17 08:13 Lasix PO 20 mg DAILY SHERIDAN Administration Hydromorphone HCl 2 mg 01/16/17 19:42 01/17/17 06:12 Dilaudid Inj IVP 2 mg Q4H PRN Administration Pain Sodium Chloride 25 mls @ 200 mls/hr 01/16/17 17:32 Normal Saline 0.9% IV .Post Infusion PRN Flush Sodium Chloride 1,000 mls @ 125 mls/hr 01/16/17 18:00 01/17/17 03:53 Normal Saline 0.45% PRIMARY IV 125 mls/hr .Q8H SHERIDAN Administration Metformin HCl 1,000 mg 01/16/17 21:00 01/17/17 08:13 Glucophage Tab PO 1,000 mg BID SHERIDAN Administration Montelukast Sodium 10 mg 01/16/17 21:00 01/16/17 20:59 Singulair PO 10 mg BEDTIME SHERIDAN Administration Multivitamins Therapeutic 1 tab 01/17/17 09:00 01/17/17 08:13 Thera Tab PO 1 tab DAILY SHERIDAN Administration Insulin Aspart Prot/ 0 unit 01/16/17 17:32 01/16/17 20:57 Insuln Asp [Novolog SUBCUT Not Given Mix 70-30] DAILY 1700 SHERIDAN Morphine Sulfate [Ms 0 tab 01/16/17 21:00 01/17/17 08:14 Contin] 30 Mg Er PO Not Given Tab TID SHERIDAN Insulin Aspart Prot/ 0 unit 01/17/17 07:00 01/17/17 10:33 Insuln Asp [Novolog SUBCUT 40 unit Mix 70-30] AC BK SHERIDAN Administration Budesonide/ 0 puff 01/16/17 19:00 01/17/17 09:54 Formoterol Fumarate INH 2 puff [Symbicort] 160/4.5 RTBID SHERIDAN Administration Mcg Omeprazole 20 mg 01/16/17 17:32 Prilosec PO DAILY PRN Heartburn Oxycodone/Acetaminophen 1 tab 01/16/17 19:41 01/17/17 09:00 Percocet 5/325 Tab PO 1 tab Q4H PRN Administration Pain Pregabalin 100 mg 01/16/17 21:00 01/17/17 08:13 Lyrica PO 100 mg TID SHERIDAN Administration Sertraline HCl 100 mg 01/17/17 09:00 01/17/17 08:13 Zoloft PO 100 mg DAILY SHERIDAN Administration Simvastatin 80 mg 01/16/17 21:00 01/16/17 21:00 Zocor PO 80 mg BEDTIME SHERIDAN Administration Sitagliptin Phosphate 50 mg 01/16/17 21:00 01/17/17 08:13 Januvia Tab PO 50 mg BID SHERIDAN Administration Sodium Chloride 5 - 20 ml 01/16/17 17:32 Saline Flush IVP BID PRN Flush Tiotropium Thayer 18 mcg 01/17/17 07:00 01/17/17 06:43 Spiriva Inhalation Cap INH 18 mcg RTDAILY SHERIDAN Administration Trazodone HCl 50 mg 01/16/17 21:00 01/16/17 21:00 Desyrel Tab PO 50 mg BEDTIME SHERIDAN Administration 8. Time, care, counseling and coordination of care for this discharge is greater than 30 minutes. Exam - Vitals Vital Signs: Vital Signs Temperature 97.1 F Temperature Source Temporal Artery Scan Pulse Rate [Pulse Oximeter] 68 Respiratory Rate 18 Blood Pressure [Right Arm] 120/78 Pulse Ox 92 Oxygen Flow Rate 2 Oxygen Delivery Method Nasal Cannula Height 5 ft 8 in Weight 250 lb Patient Problems - Patient Problem List (1) Elevated WBCs Current Visit: Yes Status: Acute Code(s): D72.829 - Elevated white blood cell count, unspecified Category: Medical (2) Acute kidney injury Current Visit: Yes Status: Acute Code(s): N17.9 - Acute kidney failure, unspecified Category: Medical (3) COPD (chronic obstructive pulmonary disease) Current Visit: No Status: Chronic Code(s): J44.9 - Chronic obstructive pulmonary disease, unspecified Qualifiers: Category: Medical (4) Current tobacco use Current Visit: No Status: Chronic Onset Date: 03/21/14 Code(s): Z72.0 - Tobacco use Category: Medical (5) Hyperkalemia Current Visit: Yes Status: Acute Code(s): E87.5 - Hyperkalemia Category: Medical (6) Dehydration Current Visit: Yes Status: Acute Code(s): E86.0 - Dehydration Category: Medical
[2017-01-17 12:40] VITALS: BP 127/69; RESP 20; TEMP 97.4
[2017-01-17] MEDS ORDERED: CEPHALEXIN 500 MG CAPSULE PO SCH (15:00)
--- NOTE | 2017-01-17 17:45 | DI ---
LEFT FOOT, 01/17/2017 7:58 AM: Clinical History: Foot ulcer. Previous Exam: 06/21/2014. 3 views are submitted. The AP and oblique views are weightbearing views. The patient could not tolera te a weightbearing lateral view. There is soft tissue swelling on the plantar aspect of the foot at t he level of the metatarsophalangeal bones. The soft tissue swelling probably is over the first metata rsophalangeal joint region. There is no soft tissue gas or radiopaque foreign body. No bony changes a re present to indicate plain film radiographic evidence of osteomyelitis. If osteomyelitis is strongl y suspected clinically, then followup films in 7-10 days are recommended or an MRI scan with and with out IV contrast can be performed. Readin. There is soft tissue swelling over the plantar surface at the level of the metatarsophalangeal rivas ints, and this probably is over the area of the first metatarsophalangeal joint. No soft tissue gas o r radiopaque foreign body is identified. 2. Followup films or an MRI scan without and with IV contrast is recommended if osteomyelitis is str ongly suspected clinically in this patient.
== END 2017-01-17 14:01 | disposition home or self-care (01) | DRG 684 ==
LOC: ER 15:01 → MED/SURG 16:57
PROVIDERS: ADMIT Internal Medicine; ATTEND Internal Medicine

== ENCOUNTER 2018-01-13 11:56 | Inpatient (IN) ==
--- NOTE | 2018-01-13 12:31 | EKG ---
Measurements Intervals [place] Rate: 98 P: 39 CT: 219 QRS: -58 QRSD: 105 T: -11 QT: 342 QTc: 397 Interpretive Statements SINUS RHYTHM WITH FIRST DEGREE AV BLOCK POSSIBLE LEFT ATRIAL ENLARGEMENT [-0.1mV P WAVE IN V1/V2] MARKED LEFT AXIS DEVIATION [QRS AXIS < -30] INCOMPLETE RIGHT BUNDLE BRANCH BLOCK [90+ ms QRS DURATION, TERMINAL R IN V1/V2, 40+ ms S IN I/aVL/V4/V5/V6] POSSIBLE SEPTAL MYOCARDIAL INFARCTION [40+ ms Q WAVE IN V1/V2], OF INDETERMINATE AGE MODERATE T-WAVE ABNORMALITY, CONSIDER ANTERIOR ISCHEMIA [-0.1+ mV T WAVE IN V3/V4] Compared to ECG 08/08/2017 10:34:03 Left-axis deviation now present Incomplete right bundle-branch block now present Myocardial infarct finding now present T-wave abnormality now present Possible ischemia now present Left anterior fascicular block no longer present Electronically Signed On 01-13-18 13:10:40 MST by Bertin De La O MD [email or web address]
[2018-01-13] MEDS ORDERED: IPRATROPIUM/ALBUTEROL SULFATE 3 ML NEB NEB ONE ×2 (12:36→12:42)
[2018-01-13 12:37] LABS: BASOPHILS # (AUTO) 0.06 10*3/UL; BASOPHILS % (AUTO) 0.3 % (0-1); EOSINOPHILS # (AUTO) 0.04 10*3/UL; EOSINOPHILS % (AUTO) 0.2 % (0-8); Hematocrit [HCT] 51.8 % (37.0-47.0); Hemoglobin [HGB] 16.5 g/dL (12.0-16.0); LYMPHOCYTES # (AUTO) 1.57 10*3/uL; MEAN CORPUSCULAR HEMOGLOBIN 29.5 PG (27-31); MEAN CORPUSCULAR HGB CONC 31.9 g/dL (33-37); MEAN CORPUSCULAR VOLUME 92.7 FL (81-99); MEAN PLATELET VOLUME 12.3 FL (7.4-12.2); MONOCYTES # (AUTO) 2.61 10*3/UL (0.3-0.8); MONOCYTES % (AUTO) 11.4 % (5-15); NEUTROPHILS # (AUTO) 18.39 10*3/UL; NEUTROPHILS % (AUTO) 79.9 % (50-80); RED BLOOD COUNT 5.59 10^6/uL (4.20-5.40)
[2018-01-13] MEDS ORDERED: ALBUTEROL SULFATE 2.5 MG/3 ML NEB ONE ×2 (12:37→13:05)
[2018-01-13] MEDS ORDERED: methylPREDNISolone 125 MG/2 ML VIAL IVP ONE (12:37)
[2018-01-13 12:47] LABS: BUN/CREATININE RATIO 20.55 (6-20); SERUM ALBUMIN 3.9 g/dL (3.5-4.8)
[2018-01-13 12:59] LABS: PLATELET MORPHOLOGY COMMENT NORMAL MORPHOLOGY (NORM); RBC MORPHOLOGY COMMENT NORMAL MORPHOLOGY (NORM); WBC MORPHOLOGY COMMENT NORMAL MORPHOLOGY (NORM)
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
[2018-01-13] MEDS ORDERED: Sodium Chloride 0.9% 1,000 ML PRIMARY IV ONE (13:09)
[2018-01-13] MEDS ORDERED: Cefepime Inj 2 GM in Sodium Chloride 0.9% 100 ML IV ONE (13:12)
[2018-01-13] MEDS ORDERED: SODIUM CL 0.9% FOR INH 3 ML NEB NEB ONE ×2 (13:21→21:19)
--- NOTE | 2018-01-13 13:33 | DI ---
XR CXR 2VW PA/LAT,01/13/2018 12:29 PM: Clinical History: Cough and shortness of breath. Previous Exam: None at this facility. Findings: PA and lateral views of the chest are obtained, and demonstrate a large right pleural effusion. There is some subsegmental atelectasis in the right lung base. Overlying EKG leads are seen. Mild degenerative changes are seen of the acromioclavicular joint. There is mild of the thoracic vertebral bodies. Impression: Large right pleural effusion otherwise unremarkable.
[2018-01-13 13:57] LABS: VENOUS PH 7.26 (7.32-7.42)
--- NOTE | 2018-01-13 15:40 | PDOC ---
HPI - History of Present Illness History of Present Illness: This very nice 62-year-old female with a past medical history of diabetes with diabetic foot ulcer and have vasculopathy with a reversible Lexiscan stress test in July severe emphysema comes in with 2-3 days of increased cough shortness of breath wheezing working very hard to breathe I am examining her in the ER she can barely talk to me and is tolerating gout and while getting the history I discussed the case with the ER physician and the BiPAP was started. She will be admitted to the ICU Past Medical History Medical History: 1. COPD. 2. Diabetes mellitus type II complicated by peripheral neuropathy. 3. Hypertension. 4. Tobacco abuse. 5. Chronic pain syndrome related to peripheral neuropathy. 6. Hormone replacement therapy status post hysterectomy with severe vasomotor symptoms. 7. 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 8. Hypercholesterolemia. 9. Renal insufficiency, stage II. 10. Chronic ulceration plantar right second metatarsal head. Apparently associated with osteomyelitis, on daptomycin currently. Surgical History: 1. Hysterectomy. 2. Carpal tunnel repair. 3. Artery repair on her right wrist. 4. Amputation of some toes on her right foot. 5. Appendectomy Pertinent Family History: Mother with complications of diabetes Past Social History: Smokes and states she's had for per day, doesn't drink, lives alone here in [place] she has 4 cats. No children. Tobacco Use: Current Every Day Smoker In the Past 12 Months, Have Used or Abuse Any of the Following Substance: None Medication / Allergies Home Medications: Home Medications 3 Medication Instructions Recorded Confirmed Type Multivitamin [Daily Vitamin] 1 tab PO DAILY tab 11/03/13 01/13/18 History Cholecalciferol (Vitamin D3) 1 cap PO QD #30 cap 05/19/14 01/13/18 History [Vitamin D3] Blood Sugar Diagnostic [Contour 1 strip IN 5XD #450 strip 09/01/15 01/13/18 History Test Strip] Omeprazole 1 cap PO QD PRN #30 cap 11/21/15 01/13/18 History Sodium Chloride [Wound Wash Saline] 210 ml MC BID #1 spray 01/02/16 01/13/18 Rx Sertraline HCl [Zoloft] 100 mg PO DAILY tab 01/17/17 01/13/18 Rx pen needle, diabetic 31 gauge x 1 ea MISCELLANEOUS BID #60 unit 02/20/17 Rx 3/16" morphine ER 30 mg tablet,extended 30 mg PO QID #90 tab 03/19/17 01/13/18 History release naloxone 4 mg/actuation nasal spray 4 mg INASL ONCE PRN 03/19/17 01/13/18 History pregabalin 100 mg capsule 100 mg PO TID #90 cap 03/19/17 01/13/18 History conjugated estrogens 0.625 mg/gram 1 applic VAGINAL .weekly #30 g 04/03/1701/13 Rx vaginal cream insulin aspar prt-insulin aspart 35 unit SUBCUT QPM #15 ml 05/13/17 01/13/18 Rx 100 unit/mL (70-30) subcutaneous soln chlorhexidine gluconate 4 % 1 applic TOPICAL BID #236 ml 06/11/17 01/13/18 Rx topical liquid budesonide-formoterol HFA 160 2 puff INH BID #1 inh 08/21/17 01/13/18 Rx mcg-4.5 mcg/actuation aerosol inhaler Albuterol Sulfate [Ventolin Hfa] 2 puff INH Q4-6H PRN 08/24/17 01/13/18 History Insulin Aspart Prot/Insuln Asp 45 unit SUBCUT QAM 08/24/17 01/13/18 History [Novolog Mix 70-30 Vial] Montelukast Sodium [Singulair] 10 mg PO BID 08/24/17 01/13/18 History estradiol 0.05 mg/24 hr weekly 1 patch TRANSDERM 2XW #8 ea 09/09/17 01/13/18 Rx transdermal patch sitagliptin 50 mg-metformin 1,000 1 tab PO BID #180 tab 09/26/17 01/13/18 Clinic mg tablet lisinopril 40 mg tablet 40 mg PO QDAY #90 tab 09/29/17 01/13/18 Rx simvastatin 80 mg tablet 80 mg PO QDAY #90 tab 09/29/17 01/13/18 Rx tiotropium bromide 18 mcg capsule 18 mcg INH QD #30 inhaler 10/10/17 01/13/18 Rx with inhalation device Furosemide [Lasix] 20 mg PO DAILY 01/13/18 01/13/18 History Allergies/Adverse Reactions: Allergies 3 Allergy/AdvReac Type Severity Reaction Status Date / Time adhesive Allergy RASH Verified 01/13/18 12:07 Review of Systems - Review of Systems All Systems: Reviewed & No Additional Complaints Except as Stated ROS Unobtainable: Due to Condition - Respiratory Respiratory: REPORTS: Cough, Dyspnea At Rest, Dyspnea with Exertion, Wheezing - Cardiovascular Cardiovascular: DENIES: Negative System Review, Chest Pain, Edema, Syncope, Palpitations, Orthopnea, Paroxysmal Nocturnal Dyspnea, Other, See HPI - Gastrointestinal Gastrointestinal / Abdominal: DENIES: Negative System Review, Nausea, Vomiting, Diarrhea, Constipation, Abdominal Pain, Bloody Stool, Poor Appetite, Heartburn, Regurgitation, Bloating, Lactose Intolerance, Melena, Bright Red Blood per Rectum, Other, See HPI Exam - Vitals Vital Signs: Vital Signs Temperature 97.2 F Temperature Source Temporal Artery Scan Pulse Rate [Pulse Oximeter 106 Right] Pulse Rate 92 Respiratory Rate 20 Blood Pressure [Left Arm] 91/66 Pulse Ox 94 Oxygen Delivery Method Room Air Height 5 ft 8 in Weight 250 lb - General General Appearance: Severe Distress, Obese - Head Head Exam: Normocephalic - Eye Eye Exam: POSITIVE: Normal Appearance, PERRL, EOMI, No Scleral Icterus - Neck Neck Exam: Normal Inspection, Full ROM, No Tenderness, No Lymphadenopathy, No Thyromegaly, JVP is not Raised - Respiratory Additional Respiratory Exam Details: Patient has bilateral expiratory wheezes and decreased breath sounds on the right lung base - Cardiovascular Cardiovascular Exam: POSITIVE: RRR, No Murmur, No Clicks, No Gallops, No Rubs, PMI Non-Displaced - GI/Abdominal GI/Abdominal Exam: POSITIVE: Normal Bowel Sounds, Non Tender, Non Distended, Soft, No Masses, No Hepatomegaly, No Splenomegaly, No Organomegaly - Extremities Extremities Exam: POSITIVE: No Clubbing Present, No Edema Present, No Cyanosis Present Additional Extremities Exam Details: Right foot with diabetic foot ulcer wrapped Results - Labs CBC and BMP: 01/13/18 12:25 01/13/18 12:25 Assessment and Plan - Patient Problems (1) Hypercapnia with mixed acid-base disorder Current Visit: Yes Status: Acute Comment: Respiratory acidosis and metabolic acidosis with a lactate of 3.3 CO2 only 53 but should be higher patient is tiring very quickly she is a full code if needed to be intubated patient is pretty critical [facility] the [facility] we will try in the next 45 hours to stabilize her and we will make a decision later if patient needs to be transferred to higher level of care. Antibiotics were given both cultures were obtained BiPAP was started fluids will be started while discussed with radiology if possibility of doing a guided ultrasound thoracentesis I discussed this with the patient and nursing. Continue insulin for her diabetes hold on on the ARB and other oral diabetic medications Code(s): E87.4 - Mixed disorder of acid-base balance (2) COPD exacerbation Current Visit: Yes Status: Acute Code(s): J44.1 - Chronic obstructive pulmonary disease with (acute) exacerbation (3) Respiratory failure with hypercapnia Current Visit: Yes Status: Acute Code(s): J96.92 - Respiratory failure, unspecified with hypercapnia (4) Current tobacco use Current Visit: No Status: Chronic Onset Date: 03/21/14 Code(s): Z72.0 - Tobacco use (5) Diabetic foot infection Current Visit: No Status: Chronic Code(s): E11.69 - Type 2 diabetes mellitus with other specified complication; L08.9 - Local infection of the skin and subcutaneous tissue, unspecified (6) Diabetic nephropathy Current Visit: No Status: Chronic Onset Date: 02/03/14 Code(s): E11.21 - Type 2 diabetes mellitus with diabetic nephropathy (7) Diabetic retinopathy Current Visit: No Status: Chronic Onset Date: 02/08/13 Code(s): E11.319 - Type 2 diabetes mellitus with unspecified diabetic retinopathy without macular edema (8) Pulmonary hypertension Current Visit: No Status: Chronic Onset Date: 08/31/15 Code(s): I27.2 - Other secondary pulmonary hypertension (9) Renal insufficiency Current Visit: No Status: Chronic Code(s): N28.9 - Disorder of kidney and ureter, unspecified
[2018-01-13] MEDS ORDERED: ONDANSETRON 4 MG/2 ML VIAL IV PRN (15:48)
[2018-01-13] MEDS ORDERED: LIDOCAINE W/ SODIUM BICARB 0.5 ML SYR SUBD PRN (15:48)
[2018-01-13 16:41] LABS: ABG BASE EXCESS -4 MMOL/L (-2-2); ABG OXYGEN SATURATION 92 % (90-100); ABG PCO2 42 MMHG (34-38); ABG PH 7.32 (7.35-7.45); ABG PO2 69 MMHG (65-75); ALLEN TEST Y; COLLECTION SITE L RADIAL
[2018-01-13] MEDS ORDERED: Insulin Regular Inj 100 UNIT in Sodium Chloride 0.9% 99 ML IV SCH (17:30)
[2018-01-13] MEDS ORDERED: D5-1/2NS 1,000 ML PRIMARY IV SCH (17:30)
[2018-01-13] MEDS ORDERED: LIDOCAINE HCL 2 % 10 ML JELLY URO-JECT TOPICAL PRN (18:20)
[2018-01-13] MEDS: HEPARIN 5000 UNIT/1 ML SUBCUT SCH (18:26)
--- NOTE | 2018-01-13 19:18 | DI ---
Thorancentesis,01/13/2018 3:45 PM: Clinical History: Large right pleural effusion. Previous Exam: Two-view chest x-ray performed January 13, 2018 Procedure: Risks, benefits and alternatives were explained to the patient and informed written consen t obtained. The patient was placed in a seated position on her bed in the intensive care unit. The right posterior chest was prepped and draped in usual sterile fashion. 1% lidocaine was used for local anesthesia. A pleurocentesis kit was used and a 5 [place] catheter advanced into the right pleural space on a meta l trocar. 750 cc of cloudy yellow-brown fluid was removed. The catheter was removed and a Band-Aid placed on the posterior right chest wall. The patient tolerated the procedure well. Findings: Sonographic images are obtained demonstrating a large right pleural effusion. Real-time sonographic images reveal a small amount of retained fluid within the right chest. Impression: Successful right chest pleurocentesis with removal of 750 cc of fluid.
[2018-01-13 19:27] LABS: VENOUS PH 7.31 (7.32-7.42)
[2018-01-13] MEDS: IPRATROPIUM/ALBUTEROL SULFATE 3 ML NEB NEB PRN (19:46)
[2018-01-13 20:33] LABS: BUN/CREATININE RATIO 22.94 (6-20); SERUM ALBUMIN 3.8 g/dL (3.5-4.8)
[2018-01-13] MEDS: Simvastatin Tab 80 MG TAB PO SCH (21:17)
[2018-01-13] MEDS: PREGABALIN 100 MG CAPSULE PO SCH (21:17)
[2018-01-13] MEDS ORDERED: FUROSEMIDE 10 MG/1 ML - 10 ML IVP ONE (21:18)
[2018-01-13] MEDS ORDERED: ALBUTEROL SULFATE 2.5 MG/3 ML NEB SCH (21:19)
[2018-01-13] MEDS ORDERED: Glucagon Inj Vial 1 MG/ML VIAL IM PRN (21:28)
[2018-01-13] MEDS ORDERED: DEXTROSE 31 GM GEL PO PRN (21:28)
[2018-01-13] MEDS ORDERED: Insulin Sliding Scale Protocol SUBCUT PRN (21:28)
[2018-01-13] MEDS ORDERED: DEXTROSE 50%-WATER SYRINGE 50 ML SYRINGE IVP PRN (21:28)
[2018-01-13] MEDS ORDERED: SODIUM POLYSTYRENE SULFONATE 15 GM/60 ML PO ONE (21:48)
[2018-01-13] MEDS: Insulin Glargine SoloStar Inj 100 UNIT/ML INSULN.PEN SUBCUT SCH (21:51)
[2018-01-13] MEDS: Insulin Lispro Flexpen 300 UNIT/3 ML INSULN.PEN SUBCUT SCH (21:51)
[2018-01-13] MEDS: MORPHINE SULFATE 20 MG/1 ML ORAL SOLN PO PRN (21:52)
[2018-01-14] MEDS: HEPARIN 5000 UNIT/1 ML SUBCUT SCH ×4 (00:25→23:39)
[2018-01-14 00:34] LABS: BASOPHILS # (AUTO) 0.02 10*3/UL; BASOPHILS % (AUTO) 0.1 % (0-1); EOSINOPHILS # (AUTO) 0 10*3/UL; EOSINOPHILS % (AUTO) 0 % (0-8); Hematocrit [HCT] 45.2 % (37.0-47.0); Hemoglobin [HGB] 14.8 g/dL (12.0-16.0); LYMPHOCYTES # (AUTO) 0.65 10*3/uL; MEAN CORPUSCULAR HGB CONC 32.7 g/dL (33-37); MEAN CORPUSCULAR VOLUME 91.5 FL (81-99); MEAN PLATELET VOLUME 12.5 FL (7.4-12.2); MONOCYTES % (AUTO) 6.5 % (5-15); NEUTROPHILS # (AUTO) 16.52 10*3/UL; NEUTROPHILS % (AUTO) 89.3 % (50-80); RED BLOOD COUNT 4.94 10^6/uL (4.20-5.40)
[2018-01-14 00:49] LABS: ABG PCO2 44 MMHG (34-38); ABG PH 7.34 (7.35-7.45)
[2018-01-14 00:50] LABS: ABG BASE EXCESS -2 MMOL/L (-2-2); ABG OXYGEN SATURATION 93 % (90-100)
[2018-01-14 00:50] LABS: BUN/CREATININE RATIO 28.75 (6-20); PLATELET MORPHOLOGY COMMENT NORMAL MORPHOLOGY (NORM); RBC MORPHOLOGY COMMENT NORMAL MORPHOLOGY (NORM); SERUM ALBUMIN 3.5 g/dL (3.5-4.8); WBC MORPHOLOGY COMMENT NORMAL MORPHOLOGY (NORM)
[2018-01-14 00:51] LABS: ALLEN TEST Y
[2018-01-14] MEDS: Cefepime Inj 2 GM in Sodium Chloride 0.9% 100 ML IV SCH ×2 (01:47→14:07)
[2018-01-14] MEDS ORDERED: INSULIN REGULAR, HUMAN 100 UNIT/1 ML - 3 ML IV ONE (01:54)
[2018-01-14] MEDS ORDERED: ALBUTEROL SULFATE 2.5 MG/3 ML NEB ONE (01:56)
[2018-01-14] MEDS ORDERED: FUROSEMIDE 10 MG/1 ML - 10 ML IVP ONE (01:58)
[2018-01-14] MEDS: ALBUTEROL SULFATE 0.63 MG/3 ML NEB PRN (02:32)
[2018-01-14] MEDS: MORPHINE SULFATE 20 MG/1 ML ORAL SOLN PO PRN ×3 (03:45→19:38)
[2018-01-14 04:48] LABS: BASOPHILS # (AUTO) 0.01 10*3/UL; BASOPHILS % (AUTO) 0.1 % (0-1); EOSINOPHILS # (AUTO) 0 10*3/UL; EOSINOPHILS % (AUTO) 0 % (0-8); Hematocrit [HCT] 45.6 % (37.0-47.0); Hemoglobin [HGB] 14.9 g/dL (12.0-16.0); MEAN CORPUSCULAR HGB CONC 32.7 g/dL (33-37); MEAN CORPUSCULAR VOLUME 91.8 FL (81-99); MEAN PLATELET VOLUME 12.6 FL (7.4-12.2); MONOCYTES # (AUTO) 0.66 10*3/UL (0.3-0.8); MONOCYTES % (AUTO) 3.4 % (5-15); NEUTROPHILS # (AUTO) 17.98 10*3/UL; NEUTROPHILS % (AUTO) 92.8 % (50-80); RED BLOOD COUNT 4.97 10^6/uL (4.20-5.40)
[2018-01-14 04:55] LABS: PLATELET MORPHOLOGY COMMENT NORMAL MORPHOLOGY (NORM); RBC MORPHOLOGY COMMENT NORMAL MORPHOLOGY (NORM); WBC MORPHOLOGY COMMENT NORMAL MORPHOLOGY (NORM)
[2018-01-14 05:02] LABS: BUN/CREATININE RATIO 31.87 (6-20)
[2018-01-14 06:38] LABS: COLLECTION SITE R RADIAL
[2018-01-14 06:53] LABS: BACTERIA,URINE MODERATE; BILIRUBIN,URINE NEGATIVE (NEG); CLARITY,URINE CLEAR (CLEAR); COLOR,URINE YELLOW (Y); GLUCOSE, URINE (UA) NEGATIVE (NEG); OCCULT BLOOD,URINE SMALL (NEG); PROTEIN,URINE NEGATIVE (NEG); RBC,URINE 0 /hpf; SQUAMOUS EPITHELIAL CELL,UR RARE; URINE SAMPLE TYPE CLEAN CATCH URINE; UROBILINOGEN,URINE 0.2 EU/dL (0.2); WBC,URINE 50-60
[2018-01-14] MEDS: IPRATROPIUM/ALBUTEROL SULFATE 3 ML NEB NEB PRN ×4 (06:54→18:10)
[2018-01-14] MEDS ORDERED: INSULIN ASPART PROTAMINE SUBCUT SCH (07:00)
[2018-01-14] MEDS ORDERED: INSULIN ASPART SUBCUT SCH (07:00)
[2018-01-14] MEDS: Insulin Lispro Flexpen 300 UNIT/3 ML INSULN.PEN SUBCUT SCH ×4 (07:03→20:35)
[2018-01-14] MEDS: CHOLECALCIFEROL 1000 IU TABLET PO SCH (08:18)
[2018-01-14] MEDS: PREGABALIN 100 MG CAPSULE PO SCH ×3 (08:18→20:35)
[2018-01-14] MEDS: Sertraline Tab 50 MG TAB PO SCH (08:18)
[2018-01-14] MEDS ORDERED: Sodium Chloride 0.9% 50 ML ONE (08:21)
--- NOTE | 2018-01-14 09:40 | PDOC(PROG) ---
Interval History: Patient clinic. The doing much better today she is less short of breath can speak in full sentences is off her BiPAP now on 7-8 L maintaining sats while she speaks above 90. Patient still smokes she states 4-5 cigarettes a day she has smoked since the age of 15. Denies nausea vomiting or chest pain Objective : Data - Labs CBC and BMP: 01/14/18 04:30 01/14/18 04:30 Objective : Exam - General General Appearance: Cooperative - Respiratory Respiratory Exam: Clear to Auscultation - Bilaterally, Decreased Breath Sounds - Cardiovascular Cardiovascular Exam: RRR, No Murmur, No Clicks, No Gallops, No Rubs, PMI Non- Displaced - GI/Abdominal GI/Abdominal Exam: Normal Bowel Sounds, Non Tender, Non Distended, Soft, No Masses, No Hepatomegaly, No Splenomegaly, No Organomegaly - Extremities Extremities Exam: +2 Edema Additional Extremities Exam Details: Right foot with cast - Neurological Neurological Exam: Alert, Oriented x 3, Speech Intact / Clear, Moves All Extremities Equally Assessment and Plan - Patient Problems (1) Hypercapnia with mixed acid-base disorder Current Visit: Yes Status: Acute Comment: This is improved on BiPAP blood gases look much better today we'll continue to use BiPAP during the night Code(s): E87.4 - Mixed disorder of acid-base balance (2) COPD exacerbation Current Visit: Yes Status: Acute Comment: Continue inhalers and antibiotics unclear if underlying pneumonia or COPD right pleural effusion which was drained 7 50 mL labs were sent will do a CAT scan without contrast today of her chest continue cefepime and Vanco. Also she has a right foot diabetic ulcer which could also be the source of infection were 22 white count and left shift wound care will examine and evaluate today Code(s): J44.1 - Chronic obstructive pulmonary disease with (acute) exacerbation (3) Respiratory failure with hypercapnia Current Visit: Yes Status: Acute Comment: Improved Code(s): J96.92 - Respiratory failure, unspecified with hypercapnia (4) Current tobacco use Current Visit: No Status: Chronic Onset Date: 03/21/14 Comment: Counseled on different methods Code(s): Z72.0 - Tobacco use (5) Diabetic foot infection Current Visit: No Status: Chronic Comment: Continue insulin consult wound care Code(s): E11.69 - Type 2 diabetes mellitus with other specified complication; L08.9 - Local infection of the skin and subcutaneous tissue, unspecified (6) Diabetic nephropathy Current Visit: No Status: Chronic Onset Date: 02/03/14 Code(s): E11.21 - Type 2 diabetes mellitus with diabetic nephropathy (7) Diabetic retinopathy Current Visit: No Status: Chronic Onset Date: 02/08/13 Code(s): E11.319 - Type 2 diabetes mellitus with unspecified diabetic retinopathy without macular edema (8) Pulmonary hypertension Current Visit: No Status: Chronic Onset Date: 08/31/15 Code(s): I27.2 - Other secondary pulmonary hypertension (9) Renal insufficiency Current Visit: No Status: Chronic Comment: With hyperkalemia mildly improved with hydration very hard because this patient is edematous most likely right heart failure will need diuresis but because of her renal insufficiency it will be hard to do. She also refuses [place] catheter present time for accurate output Code(s): N28.9 - Disorder of kidney and ureter, unspecified
[2018-01-14] MEDS ORDERED: SODIUM POLYSTYRENE SULFONATE 15 GM/60 ML PO ONE (12:52)
--- NOTE | 2018-01-14 14:54 | DI ---
MRI Lower Extremity WO Nuno,01/14/2018 12:00 PM: Clinical History: Left lower extremity pain and left foot diabetic ulcer. Previous Exam: None at this facility. Findings: The planar MR images are obtained through the left foot. Images were obtained without contrast due to patient's poor renal function. There is no reactive marrow identified. There is a small cystic area within the first distal metatars al. The surrounding soft tissues are unremarkable. There is no fracture identified. There is no bony erosion identified. The tarsometatarsal joints are unremarkable. There is some soft tissue swelling. There is a hallux valgus deformity of the right first metatarsal phalangeal joint. Impression: 1. No evidence of reactive marrow at this time to suggest underlying osteomyelitis. Correlate clinica lly.
--- NOTE | 2018-01-14 15:59 | PTI REPORT ---
Thank you for the referral of Mignon Westbrook. She was seen on 01/14/18 for an inpatient evaluation secondary to open wounds on bilateral feet. SUBJECTIVE: The patient is a 62-year-old female. The patient reports that she lives alone on the third floor in her apartment building. The patient does not use a cane or walker to get around. Occasionally she uses a cane when she is on uneven surfaces. The patient reports she does have pain; however, she did not rate it on the verbal analog scale (0=no pain, 10=worst pain). The patient reports that she has been seeing [facility] in [place] for wound care. The patient reports that she had to walk, which caused the wound blistering on her left big toe, which was seen by Dr. Dyson. PAST MEDICAL HISTORY: Past medical history can be found in the patient's medical record. OBJECTIVE FINDINGS: Nursing okayed treatment prior to PT. The patient was seen in the ICU. The patient had a total contact cast on her right lower extremity. After removing the total contact cast, the patient demonstrated two diabetic ulcers. The wound on the plantar surface around the 2-3rd met head measured 1.0 x 1.3 x 0.3 centimeters. The wound on the heel of the right foot measured 1.0 x 0.7 x 0.5 centimeters with minimal drainage on both wounds. The patient demonstrated decreased sensation all the way up to her knees bilaterally. The wound on the left dorsal surface of her foot on her second met head demonstrated purple coloring around the border. The wound measured approximately 1.0 x 0.6 x 0.2 centimeters with minimal drainage. The patient has a 0.1 x 0.2 centimeter wound on her fourth digit on her left foot. The great toe on the left foot demonstrates discoloration with black to purple coloring. The patient demonstrated poor capillary refill in the left dorsal wound on her 2nd met head. There was no odor. ASSESSMENT: The patient is a 62-year-old female that is in the ICU with pneumonia and demonstrates open wounds. The patient would benefit from skilled therapy for dressing changes as needed to promote wound healing. The patient's prognosis for therapy is fair. Problem List: Open wounds Short-Term Goals: To be met by discharge from inpatient: Patient's wounds will be monitored and dressed as needed until discharge to improve wound healing. Long-Term Goals: To be met following discharge from inpatient: Patient will continue to be seen by outpatient physical therapy for dressing changes. TREATMENT PLAN: Patient will be seen on a PRN basis during the week and one time per day over the weekend as an inpatient for wound care. INITIAL TREATMENT: Treatment today consisted of the initial evaluation followed by right lower extremity dressing change with Hydrofera Blue placed in the plantar surface wound bed and Calcium Alginate and Silver Hydrogel placed in the heel wound and covered with Kerlix and Coban. We will follow up on left lower extremity wound after doctor consult. ANTONIETTA
--- NOTE | 2018-01-14 16:52 | PT PM DAY ---
Diagnosis : Open Wounds Bilateral Feet PM - Physical Therapy S: Per request of Dr. Mcintosh, he wanted physical therapy present. He states that he would like to debride the wounds and would like physical therapy to come in afterwards to redress the wound. O: Following completion of the debridement performed by Dr. Mcintosh, application of Hydrogel was done on the right distal wound as well as the left dorsum aspect of the second toe followed by Xeroform, PolyMem, and a secondary dressing. On the heel of the right lower extremity, per Dr. Mcintosh's orders it is to be cleaned with Betadine followed by an application of Hydrogel, PolyMem, and a secondary dressing. Per verbal approval with Dr. Mcintosh, the patient was also issued a cast shoe for the right lower extremity due to the patient presenting in the hospital with a total contact cast and not having a shoe on that right lower extremity. A: Dr. Mcintosh would like the most distal wound on the right lower extremity as well as the left wound changed every other day and the right heel wound to be cleaned out with Betadine and redressed everyday. All wound present with little blood flow due to poor circulation. P: Continue seeing patient for wound care on a PRN basis and per wound presentation. MTDD
--- NOTE | 2018-01-14 20:29 | DI ---
CT Chest WO Contrast,01/14/2018 2:00 PM: Clinical History: Hypoxia and shortness of breath. Previous Exam: 01/16/17 Findings: Multiple helically acquired CT images are obtained through the chest without contrast, and demonstrat e a right pleural effusion. There is some subsegmental atelectasis. There is a stable calcified granu tacho. There are calcified granulomas within the left lung base as well. There is some mild adjacent consolidated lung near the right pleural effusion. The pleural effusion is smaller than it was on the prior plain film from yesterday. Degenerative changes of the thoracic spine are seen. Impression: Improving right pleural effusion consistent with recent pleurocentesis.
[2018-01-14] MEDS: Simvastatin Tab 80 MG TAB PO SCH (20:35)
[2018-01-14] MEDS: Insulin Glargine SoloStar Inj 100 UNIT/ML INSULN.PEN SUBCUT SCH (20:35)
[2018-01-15] MEDS: Cefepime Inj 2 GM in Sodium Chloride 0.9% 100 ML IV SCH ×2 (01:26→14:29)
[2018-01-15] MEDS: MORPHINE SULFATE 20 MG/1 ML ORAL SOLN PO PRN ×4 (01:26→23:19)
[2018-01-15 04:31] LABS: Hematocrit [HCT] 43.3 % (37.0-47.0); Hemoglobin [HGB] 13.9 g/dL (12.0-16.0); MEAN CORPUSCULAR HEMOGLOBIN 29.5 PG (27-31); MEAN CORPUSCULAR HGB CONC 32.1 g/dL (33-37); MEAN CORPUSCULAR VOLUME 91.9 FL (81-99); RED BLOOD COUNT 4.71 10^6/uL (4.20-5.40)
[2018-01-15 04:38] LABS: BUN/CREATININE RATIO 42.3 (6-20)
[2018-01-15 05:29] LABS: BAND NEUTROPHILS % 0 % (0-10); BASOPHILS % (MANUAL) 0 % (0-1); EOSINOPHILS % (MANUAL) 0 % (0-8); MONOCYTES % (MANUAL) 6 % (0-12); NEUTROPHILS % (MANUAL) 85 % (50-80); PLATELET MORPHOLOGY COMMENT NORMAL MORPHOLOGY (NORM); RBC MORPHOLOGY COMMENT NORMAL MORPHOLOGY (NORM); WBC MORPHOLOGY COMMENT NORMAL MORPHOLOGY (NORM)
[2018-01-15] MEDS: IPRATROPIUM/ALBUTEROL SULFATE 3 ML NEB NEB PRN (06:41)
[2018-01-15] MEDS: Insulin Lispro Flexpen 300 UNIT/3 ML INSULN.PEN SUBCUT SCH ×4 (07:03→20:51)
--- NOTE | 2018-01-15 08:02 | PDOC(PROG) ---
Date of Service: 01/15/18 Time of Service: 08:00 Interval History: Subjective Patient she said that she came into the hospital with shortness of breath the shortness of breath was going on for few days. There was some cough but no phlegm production. No fever. Shortness of breath is worse when she lay flat. History of leg swelling but no leg swelling before she came in. She said she feels a lot better than when she came in. She is on 1.1/2 L oxygen only at night. sHe continued to smoke. She did say that she had an angiogram done this year no stents but they told her there is an area they will keep an eye on. Objective : Data - Labs CBC and BMP: 01/15/18 03:46 01/15/18 03:46 Objective : Exam - General General Appearance: No Acute Distress, Cooperative, Obese - Head Head Exam: Normal Inspection - Eye Eye Exam: Normal Appearance - ENT ENT Exam: Normal Exam - Neck Neck Exam: Normal Inspection - Respiratory Additional Respiratory Exam Details: Harsh breath sounds with decrease breath sound the right base. - Cardiovascular Cardiovascular Exam: RRR - GI/Abdominal GI/Abdominal Exam: Normal Bowel Sounds, Non Tender, Non Distended, Soft, No Organomegaly - Rectal Rectal Exam: Deferred - External Exam: Deferred Exam: Deferred - Extremities Extremities Exam: No Edema Present Additional Extremities Exam Details: dressing applied to the ulcers of the foot - Back Back Exam: Normal Inspection - Neurological Neurological Exam: Alert, Oriented x 3, CN II-XII Intact, No Facial Droop, Speech Intact / Clear, Moves All Extremities Equally - Psychiatric Psychiatric Exam: Normal Affect - Integumentary Integumentary Exam: Normal Color Assessment and Plan - Patient Problems (1) Respiratory failure with hypercapnia Current Visit: Yes Status: Acute Comment: Probably secondary to COPD exacerbation plus presence of pleural effusion. Seems to be improving. Continue current IV antibiotics. We may consider starting the Lasix maybe tomorrow Code(s): J96.92 - Respiratory failure, unspecified with hypercapnia (2) Renal insufficiency Current Visit: No Status: Chronic Comment: Her kidney function seemed to be improved. Continue holding lisinopril. Code(s): N28.9 - Disorder of kidney and ureter, unspecified (3) Diabetic foot infection Current Visit: No Status: Chronic Comment: MRI showed no evidence of osteomyelitis. She's been treated locally with dressing changes. Code(s): E11.69 - Type 2 diabetes mellitus with other specified complication; L08.9 - Local infection of the skin and subcutaneous tissue, unspecified (4) Diabetic nephropathy Current Visit: No Status: Chronic Onset Date: 02/03/14 Comment: Because of the hyperkalemia when she came in I think we'll hold lisinopril for now. Code(s): E11.21 - Type 2 diabetes mellitus with diabetic nephropathy (5) Pulmonary hypertension Current Visit: No Status: Chronic Onset Date: 08/31/15 Comment: We'll think about restarting the Lasix tomorrow. Code(s): I27.2 - Other secondary pulmonary hypertension (6) Hypercapnia with mixed acid-base disorder Current Visit: Yes Status: Acute Comment: Seemed to be improved. Code(s): E87.4 - Mixed disorder of acid-base balance (7) COPD exacerbation Current Visit: Yes Status: Acute Comment: She is on IV antibiotics. Bronchodilator. Will restart her Spiriva. Will restart her Symbicort. Code(s): J44.1 - Chronic obstructive pulmonary disease with (acute) exacerbation (8) Pleural effusion Current Visit: Yes Status: Acute Comment: Unfortunately the fluid was not sent for analysis. will resrtar lasix tomorrow Code(s): J90 - Pleural effusion, not elsewhere classified
[2018-01-15] MEDS: TIOTROPIUM BROMIDE 18 MCG CAPSULE INH SCH (08:14)
[2018-01-15] MEDS: Sertraline Tab 50 MG TAB PO SCH (08:48)
[2018-01-15] MEDS: HEPARIN 5000 UNIT/1 ML SUBCUT SCH ×3 (08:48→23:08)
[2018-01-15] MEDS: PREGABALIN 100 MG CAPSULE PO SCH ×3 (08:48→20:55)
[2018-01-15] MEDS: CHOLECALCIFEROL 1000 IU TABLET PO SCH (08:48)
[2018-01-15] MEDS: Montelukast Tab 10 MG TAB PO SCH ×2 (08:48→20:55)
[2018-01-15] MEDS ORDERED: Non-Formulary Drug (Budesonide/Formoterol Fumarate [Symbicort] 2 PUFF) INH SCH (09:00)
[2018-01-15] MEDS: FLUTICASONE/SALMETEROL 250/50 UD INHALER INH SCH ×2 (09:39→19:12)
[2018-01-15] MEDS ORDERED: ACETAMINOPHEN 325 MG TABLET PO PRN (12:20)
--- NOTE | 2018-01-15 12:22 | DI ---
Exam: MRI EXTREMITY Without Contrast HISTORY: Diabetic foot ulcers TECHNIQUE: Utilizing high field MRI magnet following sequences of the right foot were obtained: Sagittal STIR, T2 fat sat, T1; axial STIR, T2 fat sat, T1; coronal STIR, T2 fat sat, T1. No contrast administered. COMPARISON EXAM: MRI right foot 08/13/17 FINDINGS: Postsurgical changes of transmetatarsal amputation involving the first through fifth metatarsals are again noted. No fracture or joint malalignment. At the posterior aspect of the calcaneus body adjacent to the insertion of the Achilles tendon there is a subtle crescent edema signal within the calcaneus marrow. This is nonspecific may represent stress reactive edema however cannot exclude a possible early osteomyelitis process. Remaining bone marrow signal is unremarkable. There is mild subcutaneous edema of the dorsal aspect of the distal foot raising possibility of cellulitis. No abscess or fluid collections. Subtle increase intrasubstance signal within the distal Achilles tendon spanning a 1.5 cm length. Mild tendinosis is considered. Minimal fluid signal adjacent to this portion of the Achilles tendon in the pre- Achilles tendon fat pad. There is minimal fluid within the synovial tendon sheath of flexor hallucis longus, posterior tibialis tendon and flexor digitorum longus tendon at the level of the hindfoot raising possibility of a mild degree of synovitis. The tendons are intact without tear. Remaining tendinous structures appear intact. No mortise joint effusion. No fluid within the sinus Tarsi. CONCLUSION: 1. Mild thickened crescentic edema signal in the posterior calcaneal body adjacent to the Achilles tendon insertion. This could simply represent reactive edema however cannot entirely exclude region of early osteomyelitis. Correlate for possible overlying soft tissue ulceration at this level of the heel. 2. No other possible foci of osteomyelitis identified. No fracture or malalignment. 3. Transmetatarsal amputation involving the proximal first through fifth metatarsals again noted. 4. There is mild subcutaneous edema at the dorsal aspect of the distal foot which could represent cellulitis. No abscess or fluid collections. 5. Minimal to mild degree of tendinosis over short segment of the distal Achilles tendon. Minimal pre-Achilles tendon fat pad fluid likely reactive fluid related to suspected tendinosis of the Achilles tendon. No tendon tear. 6. Minimal fluid within the synovial tendon sheath of the flexor hallucis longus, posterior tibialis tendon and flexor digitorum longus tendon at the level of the hindfoot raising possibility of a mild degree of tearing of synovitis. The tendons are intact without tear..
[2018-01-15] MEDS: ALBUTEROL SULFATE 0.63 MG/3 ML NEB PRN ×2 (12:50→19:08)
[2018-01-15] MEDS: Insulin Glargine SoloStar Inj 100 UNIT/ML INSULN.PEN SUBCUT SCH (20:54)
[2018-01-15] MEDS: Simvastatin Tab 80 MG TAB PO SCH (20:55)
[2018-01-16] MEDS: ALBUTEROL SULFATE 0.63 MG/3 ML NEB PRN ×4 (01:36→18:36)
[2018-01-16] MEDS: Cefepime Inj 2 GM in Sodium Chloride 0.9% 100 ML IV SCH (01:50)
[2018-01-16 05:26] LABS: BASOPHILS # (AUTO) 0.01 10*3/UL; BASOPHILS % (AUTO) 0.1 % (0-1); EOSINOPHILS # (AUTO) 0.16 10*3/UL; EOSINOPHILS % (AUTO) 1.2 % (0-8); Hematocrit [HCT] 45.5 % (37.0-47.0); Hemoglobin [HGB] 14.5 g/dL (12.0-16.0); MEAN CORPUSCULAR HEMOGLOBIN 29.8 PG (27-31); MEAN CORPUSCULAR HGB CONC 31.9 g/dL (33-37); MEAN CORPUSCULAR VOLUME 93.4 FL (81-99); MEAN PLATELET VOLUME 12.7 FL (7.4-12.2); MONOCYTES # (AUTO) 1.36 10*3/UL (0.3-0.8); MONOCYTES % (AUTO) 10.6 % (5-15); NEUTROPHILS # (AUTO) 9.73 10*3/UL; NEUTROPHILS % (AUTO) 75.5 % (50-80); RED BLOOD COUNT 4.87 10^6/uL (4.20-5.40)
[2018-01-16 05:33] LABS: PLATELET MORPHOLOGY COMMENT NORMAL MORPHOLOGY (NORM); RBC MORPHOLOGY COMMENT NORMAL MORPHOLOGY (NORM); WBC MORPHOLOGY COMMENT NORMAL MORPHOLOGY (NORM)
[2018-01-16 05:41] LABS: BLOOD UREA NITROGEN 41 mg/dL (7-22); BUN/CREATININE RATIO 45.55 (6-20); SERUM ALBUMIN 3.3 g/dL (3.5-4.8)
[2018-01-16] MEDS: TIOTROPIUM BROMIDE 18 MCG CAPSULE INH SCH (06:13)
[2018-01-16] MEDS: FLUTICASONE/SALMETEROL 250/50 UD INHALER INH SCH ×2 (06:14→18:48)
--- NOTE | 2018-01-16 07:34 | PDOC(PROG) ---
Date of Service: 01/16/18 Time of Service: 07:30 Interval History: Subjective Patient feels overall a lot better she said compared to when she came in. Her breathing also seems to be better. Denying other symptoms. Just some dry cough. Objective : Data - Labs CBC and BMP: 01/16/18 04:41 01/16/18 04:41 Objective : Exam - General General Appearance: No Acute Distress, Cooperative, Obese - Head Head Exam: Normal Inspection - Eye Eye Exam: Normal Appearance - ENT ENT Exam: Normal Exam - Neck Neck Exam: Normal Inspection - Respiratory Additional Respiratory Exam Details: Decreased air entry otherwise clear. Decreased breath sound at the right base. - Cardiovascular Cardiovascular Exam: RRR - GI/Abdominal GI/Abdominal Exam: Normal Bowel Sounds, Non Tender, Non Distended, Soft, No Organomegaly - Rectal Rectal Exam: Deferred - External Exam: Deferred - Extremities Additional Extremities Exam Details: No edema. She has amputation of the right foot toes. There is a small ulceration at the back of the heel. There is 1 on the plantar aspect of the right foot. There is no cellulitis. There is also one on the top on of the toes on the dorsum of the left foot. No cellulitis. All look chronic. - Back Back Exam: Normal Inspection - Neurological Neurological Exam: Alert, Oriented x 3, CN II-XII Intact, No Facial Droop, Speech Intact / Clear, Moves All Extremities Equally - Psychiatric Psychiatric Exam: Normal Affect Assessment and Plan - Patient Problems (1) Respiratory failure with hypercapnia Current Visit: Yes Status: Acute Comment: This is much improved. I think will take out of the ICU. Continue breathing treatment. Continue albuterol, Advair and Spiriva. Continue antibiotics. Code(s): J96.92 - Respiratory failure, unspecified with hypercapnia (2) Renal insufficiency Current Visit: No Status: Chronic Comment: Seem to be improved. I think we can restart her Lasix. Code(s): N28.9 - Disorder of kidney and ureter, unspecified (3) Diabetic foot infection Current Visit: No Status: Chronic Comment: Seems to be more chronic. She had an MRI done yesterday of the right foot there is question of an early osteomyelitis versus an edema. I think I'll speak with infectious disease and see their recommendation. Her white count is much improved. Code(s): E11.69 - Type 2 diabetes mellitus with other specified complication; L08.9 - Local infection of the skin and subcutaneous tissue, unspecified (4) Diabetic nephropathy Current Visit: No Status: Chronic Onset Date: 02/03/14 Comment: Continue holding the lisinopril now because of the hyperkalemia that she had. Code(s): E11.21 - Type 2 diabetes mellitus with diabetic nephropathy (5) Pulmonary hypertension Current Visit: No Status: Chronic Onset Date: 08/31/15 Comment: Resume Lasix Code(s): I27.2 - Other secondary pulmonary hypertension (6) COPD exacerbation Current Visit: Yes Status: Acute Comment: Continue bronchodilators and antibiotics. Code(s): J44.1 - Chronic obstructive pulmonary disease with (acute) exacerbation (7) Pleural effusion Current Visit: Yes Status: Acute Comment: Resume Lasix. That would help with the control of the fluid. Unfortunately the fluid was not sent for analysis. Code(s): J90 - Pleural effusion, not elsewhere classified (8) Diabetes Current Visit: No Status: Chronic Comment: She had low blood sugar today I think we'll cut back on the Lantus continue the sliding scale Code(s): E11.9 - Type 2 diabetes mellitus without complications Qualifiers: Diabetes mellitus type: type 2 Diabetes mellitus mcfp insulin use: with mcfp use Diabetes mellitus complication status: with neurologic complications Diabetes mellitus complication detail: with polyneuropathy Qualified Code(s): E11.42 - Type 2 diabetes mellitus with diabetic polyneuropathy; E11.42 - Type 2 diabetes mellitus with diabetic polyneuropathy; E11.42 - Type 2 diabetes mellitus with diabetic polyneuropathy; E11.42 - Type 2 diabetes mellitus with diabetic polyneuropathy; E11.42 - Type 2 diabetes mellitus with diabetic polyneuropathy; Z79.4 - shelter (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; Z79.4 - shelter (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; Z79.4 - shelter (current ) use of insulin; Z79.4 - hair baler (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
[2018-01-16] MEDS: Insulin Lispro Flexpen 300 UNIT/3 ML INSULN.PEN SUBCUT SCH ×4 (07:36→20:32)
[2018-01-16] MEDS ORDERED: FUROSEMIDE 20 MG TABLET PO SCH (07:45)
[2018-01-16] MEDS: MORPHINE SULFATE 20 MG/1 ML ORAL SOLN PO PRN ×3 (07:46→20:41)
[2018-01-16] MEDS: HEPARIN 5000 UNIT/1 ML SUBCUT SCH ×3 (07:47→23:23)
[2018-01-16] MEDS ORDERED: Vancomycin-PHA to Dose IV PRN (07:51)
[2018-01-16] MEDS ORDERED: ONDANSETRON 4 MG/2 ML VIAL IV PRN (07:51)
[2018-01-16] MEDS ORDERED: Glucagon Inj Vial 1 MG/ML VIAL IM PRN (07:51)
[2018-01-16] MEDS ORDERED: ACETAMINOPHEN 325 MG TABLET PO PRN (07:51)
[2018-01-16] MEDS ORDERED: DEXTROSE 50%-WATER SYRINGE 50 ML SYRINGE IVP PRN (07:51)
[2018-01-16] MEDS ORDERED: LIDOCAINE HCL 2 % 10 ML JELLY URO-JECT TOPICAL PRN (07:51)
[2018-01-16] MEDS ORDERED: LIDOCAINE W/ SODIUM BICARB 0.5 ML SYR SUBD PRN (07:51)
[2018-01-16] MEDS ORDERED: DEXTROSE 31 GM GEL PO PRN (07:51)
[2018-01-16] MEDS ORDERED: cefTRIAXone Inj 2 GM in Sodium Chloride 0.9% 100 ML IV SCH ×2 (08:45→14:00)
[2018-01-16] MEDS: Montelukast Tab 10 MG TAB PO SCH ×2 (09:50→20:31)
[2018-01-16] MEDS: PREGABALIN 100 MG CAPSULE PO SCH ×3 (09:50→20:31)
[2018-01-16] MEDS: CHOLECALCIFEROL 1000 IU TABLET PO SCH (09:50)
[2018-01-16] MEDS: FUROSEMIDE 20 MG TABLET PO SCH (09:51)
[2018-01-16] MEDS: Sertraline Tab 50 MG TAB PO SCH (09:51)
--- NOTE | 2018-01-16 10:33 | OT AM DAY ---
Diagnosis : Open Wounds Bilateral Feet AM - Occupational Therapy S: The patient reports her foot is feeling okay. O: Treatment today consisted of cleansing the heel on the right side followed by Iodine, 4x4s, and paper tape. On the left foot we cleaned out the volar part of her foot between her 2nd and 3rd toe and this was dressed with Hydrogel and PolyMem and was wrapped with paper tape. A: The patient's wounds have not changed. We will continue to cleanse wounds and change dressings as necessary. P: Continue seeing patient BID during the week and one time per day over the weekend until discharge. MTDD
--- NOTE | 2018-01-16 10:48 | PT AM DAY ---
Diagnosis : Open Wounds Bilateral Feet AM - Physical Therapy S: The patient reports she has been told by nursing that she will be taken off of ICU status today; however, she will be left in her same room with possible discharge tomorrow. O: Today's therapy consisted of changing all bandages on bilateral lower extremities. Upon removal of all dressings, all areas were cleansed with wound cleanser followed by Betadine per Dr. Mcintosh's verbal orders. On the right heel, it was redressed with Silver Hydrogel followed by a 3x3 Mepilex. The right distal wound was also redressed with Silver Hydrogel and a 4x4 Mepilex. The left dorsum aspect of the second toe was dressed with Silver Hydrogel followed by post surgical tape and PolyMem. A: Upon inspections, all wounds presented with a scant amount of serous drainage with no visible signs of granulation tissue in the wound base at this time. At this time the patient does not have good blood flow nor a good prognosis for wound healing. P: Continue seeing patient every other day on the left wound as well as the distal right lower extremity wound and everyday for the right heel wound. ANTONIETTA
[2018-01-16] MEDS ORDERED: Influenza 18-19 Vaccine (6mo+) 60 MCG/0.5 ML SYRINGE IM ONE (12:15)
[2018-01-16] MEDS ORDERED: Cefepime Inj 2 GM in Sodium Chloride 0.9% 100 ML IV SCH (14:00)
[2018-01-16] MEDS ORDERED: GUAIFENESIN/DM 5 ML UD CUP PO PRN (20:37)
[2018-01-16] MEDS ORDERED: Simvastatin Tab 80 MG TAB PO SCH (21:00)
[2018-01-16] MEDS ORDERED: Insulin Glargine SoloStar Inj 100 UNIT/ML INSULN.PEN SUBCUT SCH ×2 (21:00)
[2018-01-17 04:38] LABS: Hemoglobin [HGB] 15.4 g/dL (12.0-16.0); MEAN CORPUSCULAR HEMOGLOBIN 29.9 PG (27-31); MEAN CORPUSCULAR HGB CONC 32.1 g/dL (33-37); MEAN CORPUSCULAR VOLUME 93.2 FL (81-99); MEAN PLATELET VOLUME 12.4 FL (7.4-12.2); RED BLOOD COUNT 5.15 10^6/uL (4.20-5.40)
[2018-01-17 05:34] LABS: BLOOD UREA NITROGEN 33 mg/dL (7-22); BUN/CREATININE RATIO 41.25 (6-20)
[2018-01-17 05:36] LABS: PLATELET MORPHOLOGY COMMENT SEE COMMENTS (NORM); WBC MORPHOLOGY COMMENT NORMAL MORPHOLOGY (NORM)
[2018-01-17 05:37] LABS: RBC MORPHOLOGY COMMENT SEE COMMENTS (NORM)
[2018-01-17 05:38] LABS: BAND NEUTROPHILS % 1 % (0-10); BASOPHILS % (MANUAL) 0 % (0-1); EOSINOPHILS % (MANUAL) 2 % (0-8); MONOCYTES % (MANUAL) 11 % (0-12); NEUTROPHILS % (MANUAL) 69 % (50-80)
[2018-01-17] MEDS: ALBUTEROL SULFATE 0.63 MG/3 ML NEB PRN (06:18)
[2018-01-17] MEDS: FLUTICASONE/SALMETEROL 250/50 UD INHALER INH SCH (06:19)
[2018-01-17] MEDS ORDERED: TIOTROPIUM BROMIDE 18 MCG CAPSULE INH SCH (07:00)
[2018-01-17 07:01] VITALS: O2SAT 88
[2018-01-17 07:09] VITALS: BP 128/84; RESP 22; TEMP 96.8
[2018-01-17] MEDS: Insulin Lispro Flexpen 300 UNIT/3 ML INSULN.PEN SUBCUT SCH ×2 (07:20→11:11)
[2018-01-17] MEDS: HEPARIN 5000 UNIT/1 ML SUBCUT SCH (08:42)
[2018-01-17] MEDS: FUROSEMIDE 20 MG TABLET PO SCH (08:43)
[2018-01-17] MEDS: Sertraline Tab 50 MG TAB PO SCH (08:43)
[2018-01-17] MEDS: MORPHINE SULFATE 20 MG/1 ML ORAL SOLN PO PRN (08:43)
[2018-01-17] MEDS: Montelukast Tab 10 MG TAB PO SCH (08:44)
[2018-01-17] MEDS: CHOLECALCIFEROL 1000 IU TABLET PO SCH (08:44)
[2018-01-17] MEDS: PREGABALIN 100 MG CAPSULE PO SCH (08:48)
--- NOTE | 2018-01-17 10:12 | DCSUMMARY ---
Hospitalization Summary Admit Date: 01/13/2018 Discharge Date: 01/17/18 Hospital Course: Discharge diagnoses 1. COPD exacerbation 2. Acute renal failure, resolved 3. Right pleural effusion 4. Hyperkalemia improved 5. Chronic pain syndrome 6. 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 Hypercholesterolemia 8. Decubitus ulcers 9. Diabetes, carried by neuropathy 10. History of hypertension Hospital course This is a 62 years old the female with medical history significant for history of diabetes, COPD, chronic pain syndrome and history of previous transmetatarsal amputation also have decubitus feet ulcers the last few weeks been followed up by Dr. Neri, she presented to the hospital with history of cough which is dry, shortness of breath and wheezing, evaluation revealed COPD exacerbation with right pleural effusion and acute renal failure so she was admitted to the hospital to the ICU first by Dr. Rodriguez please see his note. Patient was put on IV antibiotics, bronchodilators and BiPAP. She also had a thoracocentesis with removal of 750 minute of fluid. She did receive a dosage of steroid in the ER. Her white count was elevated 22,000 when she came in. She was on lisnopril and was withheld because of hyperkalemia. The rest of her medication were continued. With treatment she started to improve. Unfortunately the pleural fluid was not sent for analysis. I saw her later on during her hospital stay she was making improvement. we continued antibiotic, bronchodilators and with the rest of her medications. We continued to hold the lisinopril. Hyperkalemia improved. Her kidney function also improved. She had an MRI done of both her feet on the left there was no evidence of osteomyelitis on the MRI on the right the finding was either reactive edema or cannot exclude a region of early osteomyelitis as there was mild thickened crescentic edema signal in the posterior calcaneal body. However the patient does have an ulcer at that area. I did speak with infectious disease as clinically to me it does not look like what brought her here was cellulitis it's more like a chronic ulcer and more like pulomnary issues that brought her to the hospital. They agreed with this they suggested that she continued wound dressing which we been doing here and follow-up with ID and wound care as an outpatient. on the day of discharge she was feeling much better she said, there was no wheezing I could hear so we thought that she could be discharged home on oral antibiotics. Continue bronchodilator continue with oxygen. She'll come in for dressing changes. She follow-up with her PCP. We'll stop lisinopril for now until she follow-up with her primary because of the hyperkalemia and renal failure that she had. This need to be monitored before we restart this. So I'll leave it up to her primary to decide about restarting it or not. Laboratory Results 01/14/18 01/17/18 01/17/18 Range/Units 06:10 04:15 04:15 WBC 15.01 H (4.8-10.8) 10^3/uL RBC 5.15 (4.20-5.40) 10^6/uL Hgb 15.4 (12.0-16.0) g/dL Hct 48.0 H (37.0-47.0) % MCV 93.2 (81-99) FL MCH 29.9 (27-31) PG MCHC 32.1 L (33-37) g/dL RDW Std Deviation 51.7 H (39-50) fL RDW Coeff of Gus 15.3 H (11.5-14.5) % Plt Count 141 (140-350) 10*3/uL MPV 12.4 H (7.4-12.2) FL Neutrophils % (Manual) 69 (50-80) % Band Neutrophils % 1 (0-10) % Lymphocytes % (Manual) 17 (10-50) % Monocytes % (Manual) 11 (0-12) % Eosinophils % (Manual) 2 (0-8) % Basophils % (Manual) 0 (0-1) % Metamyelocytes % Not Reportable Myelocytes % Not Reportable Promyelocytes % Not Reportable Blast Cells Not Reportable WBC Morphology Comment Normal morphology (NORM) Plt Morphology Comment See comments (NORM) RBC Morph Comment See comments (NORM) Sodium 141 (135-145) meq/L Potassium 5.0 (3.8-5.2) meq/L Chloride 104 (98-112) meq/L Carbon Dioxide 28 (23-33) meq/L Anion Gap 9 (5-20) BUN 33 H (7-22) mg/dL Creatinine 0.8 (0.50-1.20) mg/dL Estimated GFR > 60 (>60 ml/min/1.73m(2)) BUN/Creatinine Ratio 41.25 H (6-20) Glucose 110 (78-110) mg/dL Calculated Osmolality 299.0 H (267-292) mOsm/kg Calcium 8.3 L (8.7-10.7) mg/dL Ur L.pneumophila Ag Negative (Negative) Discharge suction Diet diabetic Activity as started Medications Current Medication(s) 3 Medication Instructions Recorded Confirmed Type Multivitamin [Daily Vitamin] 1 tab PO DAILY tab 11/03/13 01/13/18 History Cholecalciferol (Vitamin D3) 1 cap PO QD #30 cap 05/19/14 01/13/18 History [Vitamin D3] Blood Sugar Diagnostic [Contour 1 strip IN 5XD #450 strip 09/01/15 01/13/18 History Test Strip] Omeprazole 1 cap PO QD PRN #30 cap 11/21/15 01/13/18 History Sodium Chloride [Wound Wash Saline] 210 ml MC BID #1 spray 01/02/16 01/13/18 Rx Sertraline HCl [Zoloft] 100 mg PO DAILY tab 01/17/17 01/13/18 Rx pen needle, diabetic 31 gauge x 1 ea MISCELLANEOUS BID #60 unit 02/20/17 Rx 3/16" morphine ER 30 mg tablet,extended 30 mg PO QID #90 tab 03/19/17 01/13/18 History release naloxone 4 mg/actuation nasal spray 4 mg INASL ONCE PRN 03/19/17 01/13/18 History pregabalin 100 mg capsule 100 mg PO BID #90 cap 03/19/17 01/13/18 History conjugated estrogens 0.625 mg/gram 1 applic VAGINAL .weekly #30 g 04/03/1701/13 Rx vaginal cream insulin aspar prt-insulin aspart 35 unit SUBCUT QPM #15 ml 05/13/17 01/13/18 Rx 100 unit/mL (70-30) subcutaneous soln chlorhexidine gluconate 4 % 1 applic TOPICAL BID #236 ml 06/11/17 01/13/18 Rx topical liquid budesonide-formoterol HFA 160 2 puff INH BID #1 inh 08/21/17 01/13/18 Rx mcg-4.5 mcg/actuation aerosol inhaler Albuterol Sulfate [Ventolin Hfa] 2 puff INH Q4-6H PRN 08/24/17 01/13/18 History Insulin Aspart Prot/Insuln Asp 45 unit SUBCUT QAM 08/24/17 01/13/18 History [Novolog Mix 70-30 Vial] Montelukast Sodium [Singulair] 10 mg PO BID 08/24/17 01/13/18 History estradiol 0.05 mg/24 hr weekly 1 patch TRANSDERM 2XW #8 ea 09/09/17 01/13/18 Rx transdermal patch sitagliptin 50 mg-metformin 1,000 1 tab PO BID #180 tab 09/26/17 01/13/18 Clinic mg tablet simvastatin 80 mg tablet 80 mg PO QDAY #90 tab 09/29/17 01/13/18 Rx tiotropium bromide 18 mcg capsule 18 mcg INH QD #30 inhaler 10/10/17 01/13/18 Rx with inhalation device Furosemide [Lasix] 20 mg PO DAILY 01/13/18 01/13/18 History Amoxicillin/Potassium Clav 1 ea PO BID #8 tab 01/17/18 Rx [Augmentin 875-125 Tablet] Flutica/Salmet 250/50 Inhaler 1 puff INH RTBID inhaler 01/17/18 Rx [Advair Diskus 250/50 Inhaler] Follow-up with PCP in 1-2 weeks, with infectious disease, with the PT for dressing changes Condition at discharge was stable for discharge Exam - Vitals Vital Signs: Vital Signs Temperature 96.8 F Temperature Source Temporal Artery Scan Pulse Rate [Telemetry] 104 Pulse Rate [Apical] 90 Pulse Rate [Pulse Oximeter 114 Right] Pulse Rate 105 Respiratory Rate 22 Blood Pressure [Right Arm] 132/61 Blood Pressure [Left Arm] 130/83 Blood Pressure 128/84 Pulse Ox 88 Oxygen Flow Rate 4 Oxygen Delivery Method Nasal Cannula Height 5 ft 8 in Weight 252 lb 12.8 oz - General General Appearance: No Acute Distress, Obese - Head Head Exam: Normal Inspection - Eye Eye Exam: POSITIVE: Normal Appearance - ENT ENT Exam: POSITIVE: Normal Exam - Neck Neck Exam: Normal Inspection - Respiratory Additional Respiratory Exam Details: Decreased air entry otherwise clear. There is decreased breast on the right lung base. - Cardiovascular Cardiovascular Exam: POSITIVE: RRR - GI/Abdominal GI/Abdominal Exam: POSITIVE: Normal Bowel Sounds, Non Tender, Non Distended, Soft, No Organomegaly - Rectal Rectal Exam: POSITIVE: Deferred - External Exam: POSITIVE: Deferred Exam: POSITIVE: Deferred - Extremities Additional Extremities Exam Details: Trace edema on the left leg. There is a decubitus ulcer all look chronic unchanged from before. These are present on the plantar aspect of the right foot and also the back of the heel and one on the dorsum of the left foot. - Neurological Neurological Exam: POSITIVE: Alert, Oriented x 3, CN II-XII Intact, No Facial Droop, Speech Intact / Clear - Psychiatric Psychiatric Exam: POSITIVE: Normal Affect Patient Problems - Patient Problem List (1) Respiratory failure with hypercapnia Status: Acute Code(s): J96.92 - Respiratory failure, unspecified with hypercapnia Category: Medical (2) Renal insufficiency Status: Chronic Code(s): N28.9 - Disorder of kidney and ureter, unspecified Category: Medical (3) Diabetic foot infection Status: Chronic Code(s): E11.69 - Type 2 diabetes mellitus with other specified complication; L08.9 - Local infection of the skin and subcutaneous tissue, unspecified Category: Medical (4) Diabetic nephropathy Status: Chronic Onset Date: 02/03/14 Code(s): E11.21 - Type 2 diabetes mellitus with diabetic nephropathy Category: Medical (5) Pulmonary hypertension Status: Chronic Onset Date: 08/31/15 Code(s): I27.2 - Other secondary pulmonary hypertension Category: Medical (6) COPD exacerbation Status: Acute Code(s): J44.1 - Chronic obstructive pulmonary disease with ( acute) exacerbation Category: Medical (7) Pleural effusion Status: Acute Code(s): J90 - Pleural effusion, not elsewhere classified Category: Medical (8) Diabetes Status: Chronic Comment: x25 years, insulin dependent Code(s): E11.9 - Type 2 diabetes mellitus without complications Qualifiers: Diabetes mellitus type: type 2 Diabetes mellitus termite treater helper insulin use: with termite treater helper use Diabetes mellitus complication status: with neurologic complications Diabetes mellitus complication detail: with polyneuropathy Qualified Code(s): E11.42 - Type 2 diabetes mellitus with diabetic polyneuropathy; E11.42 - Type 2 diabetes mellitus with diabetic polyneuropathy; E11.42 - Type 2 diabetes mellitus with diabetic polyneuropathy; E11.42 - Type 2 diabetes mellitus with diabetic polyneuropathy; E11.42 - Type 2 diabetes mellitus with diabetic polyneuropathy; 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
[2018-01-17] MEDS ORDERED: Influenza 18-19 Vaccine (6mo+) 60 MCG/0.5 ML SYRINGE IM ONE (11:24)
--- NOTE | 2018-01-19 08:17 | OT.PROG ---
Progress Note Progress Note: S: pt stated that she was feeling fine today . O: tx consisted of changing bandages on R LE heel. Wound was cleaned with wound stitch cleaner followed by betadine per Dr. Mcintosh's verbal orders. R heel wound was redressed with silver hydrogel followed by a 3x3 mepilex. A: wound presented with scant amount of serious drainage with no visible signs of granulation tissue in the wound at this time. at this time pt does not have good blood flow nor a good prognosis for wound healing. P: continue seeing pt for wound care everyday.
== END 2018-01-17 13:15 | disposition home or self-care (01) | DRG 190 ==
LOC: ER 11:56 → ICU 15:43 → MED/SURG 01-16 07:35
PROVIDERS: ADMIT Internal Medicine; ATTEND Internal Medicine

== ENCOUNTER 2018-01-29 17:36 | Observation (INO) ==
[2018-01-29] MEDS ORDERED: CALCIUM CARBONATE 500 MG (TUMS) CHEWABLE TABLET PO PRN (18:29)
[2018-01-29] MEDS ORDERED: ONDANSETRON 4 MG/2 ML VIAL IVP PRN (18:29)
[2018-01-29] MEDS ORDERED: ACETAMINOPHEN 325 MG TABLET PO PRN (18:29)
[2018-01-29] MEDS ORDERED: DOCUSATE 100 MG CAPSULE PO PRN (18:29)
[2018-01-29] MEDS ORDERED: LIDOCAINE W/ SODIUM BICARB 0.5 ML SYR SUBD PRN (18:29)
[2018-01-29] MEDS ORDERED: ALBUTEROL SULFATE 8.5 GM HFA INHALER INH PRN ×2 (18:32)
[2018-01-29] MEDS ORDERED: OMEPRAZOLE 20 MG CAPSULE PO PRN (18:32)
--- NOTE | 2018-01-29 18:40 | PDOC ---
HPI - History of Present Illness History of Present Illness: This very nice 8-year-old female with the complication of her diabetes with multiple diabetic foot ulcers. I was called by Dr. Dyson/dayron to admit the patient for them as since she will be having some debridement and the possible amputations of toes on the left foot she also has a white count of 15,000 according to the last labs and abnormal MRI according to Dr. Severino Past Medical History Medical History: 1. COPD. 2. Diabetes mellitus type II complicated by peripheral neuropathy. 3. Hypertension. 4. Tobacco abuse. 5. Chronic pain syndrome related to peripheral neuropathy. 6. Hormone replacement therapy status post hysterectomy with severe vasomotor symptoms. 7. 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 8. Hypercholesterolemia. 9. Renal insufficiency, stage II. 10. Chronic ulceration plantar right second metatarsal head. Apparently associated with osteomyelitis, on daptomycin currently. Surgical History: 1. Hysterectomy. 2. Carpal tunnel repair. 3. Artery repair on her right wrist. 4. Amputation of some toes on her right foot. 5. Appendectomy Pertinent Family History: Mother with complications of diabetes Past Social History: Smokes and states she's had for per day, doesn't drink, lives alone here in [place] she has 4 cats. No children. In the Past 12 Months, Have Used or Abuse Any of the Following Substance: None Medication / Allergies Home Medications: Home Medications Medication Instructions Recorded Confirmed Type Multivitamin [Daily Vitamin] 1 tab PO DAILY tab 11/03/13 01/22/18 History Cholecalciferol (Vitamin D3) 1 cap PO QD #30 cap 05/19/14 01/22/18 History [Vitamin D3] Blood Sugar Diagnostic [Contour 1 strip IN 5XD #450 strip 09/01/15 01/22/18 History Test Strip] Omeprazole 1 cap PO QD PRN #30 cap 11/21/15 01/22/18 History Sodium Chloride [Wound Wash Saline] 210 ml MC BID #1 spray 01/02/16 01/22/18 Rx Sertraline HCl [Zoloft] 100 mg PO DAILY tab 01/17/17 01/22/18 Rx morphine ER 30 mg tablet,extended 30 mg PO QID #90 tab 03/19/17 01/22/18 History release naloxone 4 mg/actuation nasal spray 4 mg INASL ONCE PRN 03/19/17 01/22/18 History pregabalin 100 mg capsule 100 mg PO BID #90 cap 03/19/17 01/22/18 History conjugated estrogens 0.625 mg/gram 1 applic VAGINAL .weekly #30 g 04/03/17 01/22/18 Rx vaginal cream insulin aspar prt-insulin aspart 35 unit SUBCUT QPM #15 ml 05/13/17 01/22/18 Rx 100 unit/mL (70-30) subcutaneous soln chlorhexidine gluconate 4 % 1 applic TOPICAL BID #236 ml 06/11/17 01/22/18 Rx topical liquid budesonide-formoterol HFA 160 2 puff INH BID #1 inh 08/21/17 01/22/18 Rx mcg-4.5 mcg/actuation aerosol inhaler Albuterol Sulfate [Ventolin Hfa] 2 puff INH Q4-6H PRN 08/24/17 01/22/18 History Insulin Aspart Prot/Insuln Asp 45 unit SUBCUT QAM 08/24/17 01/22/18 History [Novolog Mix 70-30 Vial] Montelukast Sodium [Singulair] 10 mg PO BID 08/24/17 01/22/18 History estradiol 0.05 mg/24 hr weekly 1 patch TRANSDERM 2XW #8 ea 09/09/17 01/22/18 Rx transdermal patch tiotropium bromide 18 mcg capsule 18 mcg INH QD #30 inhaler 10/10/17 01/22/18 Rx with inhalation device albuterol sulfate HFA 90 2 puff INH Q4-6H PRN #18 g 01/27/18 Rx mcg/actuation aerosol inhaler furosemide 20 mg tablet 20 mg PO QDAY #30 tab 01/27/18 Rx pen needle, diabetic 31 gauge x 1 ea MISCELLANEOUS BID #60 unit 01/27/18 Rx 3/16" simvastatin 80 mg tablet 80 mg PO QDAY #90 tab 01/27/18 Rx sitagliptin 50 mg-metformin 1,000 1 tab PO BID #60 tab 01/28/18 Rx mg tablet Allergies/Adverse Reactions: Allergies Allergy/AdvReac Type Severity Reaction Status Date / Time adhesive Allergy RASH Verified 01/22/18 09:27 Review of Systems - Review of Systems All Systems: Reviewed & No Additional Complaints Except as Stated - Respiratory Respiratory: DENIES: Negative System Review, Cough, Sputum, Dyspnea At Rest, Dyspnea with Exertion, Pleuritic Pain, Hemoptysis, Wheezing, Other, See HPI - Cardiovascular Cardiovascular: DENIES: Negative System Review, Chest Pain, Edema, Syncope, Palpitations, Orthopnea, Paroxysmal Nocturnal Dyspnea, Other, See HPI - Gastrointestinal Gastrointestinal / Abdominal: DENIES: Negative System Review, Nausea, Vomiting, Diarrhea, Constipation, Abdominal Pain, Bloody Stool, Poor Appetite, Heartburn, Regurgitation, Bloating, Lactose Intolerance, Melena, Bright Red Blood per Rectum, Other, See HPI Exam - General General Appearance: Cooperative - Respiratory Respiratory Exam: POSITIVE: Clear to Auscultation - Bilaterally, Breathing Non Labored, Normal To Percussion, Normal to Percussion and Palpation - Cardiovascular Cardiovascular Exam: POSITIVE: RRR, No Murmur, No Clicks, No Gallops, No Rubs, PMI Non-Displaced - GI/Abdominal GI/Abdominal Exam: POSITIVE: Normal Bowel Sounds, Non Tender, Non Distended, Soft, No Masses, No Hepatomegaly, No Splenomegaly, No Organomegaly - Extremities Additional Extremities Exam Details: Bilateral multiple open wounds consistent with diabetic foot ulcers Assessment and Plan - Patient Problems (1) Acute osteomyelitis involving ankle and foot Status: Acute Onset Date: 05/21/13 Comment: Admit the patient IV fluids, will start Zosyn IV Dr. Mere Mcintosh will be seen patient in the morning for possible wound debridement or amputation continue her other usual meds her COPD and diabetes are stable at present time Code(s): M86.179 - Other acute osteomyelitis, unspecified ankle and foot (2) COPD (chronic obstructive pulmonary disease) Status: Chronic Code(s): J44.9 - Chronic obstructive pulmonary disease, unspecified Qualifiers: (3) Congestive heart failure Status: Chronic Code(s): I50.9 - Heart failure, unspecified (4) Current tobacco use Status: Chronic Onset Date: 03/21/14 Code(s): Z72.0 - Tobacco use
[2018-01-29] MEDS ORDERED: ESTROGENS,CONJUGATED 30 GM CREAM VAGINAL SCH (18:45)
[2018-01-29] MEDS ORDERED: BLOOD SUGAR DIAGNOSTIC IN SCH (18:45)
[2018-01-29] MEDS ORDERED: ESTRADIOL TRANSDERM SCH (18:45)
[2018-01-29] MEDS: Piperacillin/Tazobactam Inj 3.375 GM in Sodium Chloride 0.9% 100 ML IV SCH (20:23)
[2018-01-29] MEDS: Lactated Ringers 1,000 ML PRIMARY IV SCH (20:24)
[2018-01-29] MEDS ORDERED: INSULIN ASPART PROTAMINE SUBCUT SCH (21:00)
[2018-01-29] MEDS ORDERED: INSULIN ASPART SUBCUT SCH (21:00)
[2018-01-29] MEDS ORDERED: DIABETIC miscellaneous SCH (21:00)
[2018-01-29] MEDS ORDERED: SODIUM CHLORIDE MC SCH (21:00)
[2018-01-29] MEDS ORDERED: [UNRECOGNIZED DRUG - OTHER] MC SCH (21:00)
[2018-01-29] MEDS: FORMOTEROL FUMARATE INH SCH ×2 (21:12→21:13)
[2018-01-29] MEDS: BUDESONIDE INH SCH ×2 (21:12→21:13)
[2018-01-29] MEDS: PREGABALIN 100 MG CAPSULE PO SCH (21:52)
[2018-01-29] MEDS: metFORMIN 500 MG TABLET PO SCH (21:52)
[2018-01-29] MEDS: Montelukast Tab 10 MG TAB PO SCH (21:53)
[2018-01-29] MEDS: Chlorhexidine Gluc Soap 4% 15 ML LIQUID TOPICAL SCH (21:56)
[2018-01-29] MEDS: MORPHINE SULFATE 30 MG PO SCH (21:58)
[2018-01-29] MEDS: HYDROmorphone 2 MG/1 ML IVP PRN (22:07)
[2018-01-30] MEDS: Lactated Ringers 1,000 ML PRIMARY IV SCH (03:46)
[2018-01-30] MEDS: Piperacillin/Tazobactam Inj 3.375 GM in Sodium Chloride 0.9% 100 ML IV SCH ×3 (03:46→19:23)
[2018-01-30] MEDS: HYDROmorphone 2 MG/1 ML IVP PRN ×3 (04:17→14:50)
[2018-01-30 04:54] LABS: BASOPHILS # (AUTO) 0.07 10*3/UL; BASOPHILS % (AUTO) 0.6 % (0-1); EOSINOPHILS # (AUTO) 0.15 10*3/UL; EOSINOPHILS % (AUTO) 1.2 % (0-8); Hematocrit [HCT] 46.3 % (37.0-47.0); Hemoglobin [HGB] 14.4 g/dL (12.0-16.0); LYMPHOCYTES # (AUTO) 1.63 10*3/uL; MEAN CORPUSCULAR HEMOGLOBIN 29.5 PG (27-31); MEAN CORPUSCULAR HGB CONC 31.1 g/dL (33-37); MEAN CORPUSCULAR VOLUME 94.9 FL (81-99); MEAN PLATELET VOLUME 12.8 FL (7.4-12.2); MONOCYTES # (AUTO) 1.14 10*3/UL (0.3-0.8); MONOCYTES % (AUTO) 9.1 % (5-15); NEUTROPHILS # (AUTO) 9.42 10*3/UL; NEUTROPHILS % (AUTO) 75.6 % (50-80); RED BLOOD COUNT 4.88 10^6/uL (4.20-5.40)
[2018-01-30 04:55] LABS: PLATELET MORPHOLOGY COMMENT NORMAL MORPHOLOGY (NORM); RBC MORPHOLOGY COMMENT NORMAL MORPHOLOGY (NORM); WBC MORPHOLOGY COMMENT NORMAL MORPHOLOGY (NORM)
[2018-01-30 05:07] LABS: SERUM ALBUMIN 3.4 g/dL (3.5-4.8)
[2018-01-30] MEDS: FORMOTEROL FUMARATE INH SCH ×4 (06:22→19:16)
[2018-01-30] MEDS: BUDESONIDE INH SCH ×4 (06:22→19:16)
[2018-01-30] MEDS ORDERED: TIOTROPIUM BROMIDE 18 MCG CAPSULE INH SCH (07:00)
[2018-01-30] MEDS ORDERED: D5-1/2NS 1,000 ML PRIMARY IV SCH (07:15)
--- NOTE | 2018-01-30 07:25 | PDOC(PROG) ---
Date of Service: 01/30/18 Time of Service: 07:30 Interval History: Subjective Patient denying new symptoms. She said she saw Dr. Hopson from infectious disease last Lara he did cultures and he put her on Keflex. She saw Dr. Dyson yesterday and planned to have surgery today. She is not exactly sure about what she will have today. Has multiple ulcers also on the feet think it's mainly the right foot. Although she has one also on the left which she is not certain about whether she will have surgery on it or not. She feels better since the last time I've seen her she had shortness of breath this is not an issue anymore. She did not have repeat x-rays since the last time I have seen her. She had low blood sugar this morning however she did not feel it. Objective : Data - Labs CBC and BMP: 01/30/18 04:20 01/30/18 04:20 Objective : Exam - General General Appearance: No Acute Distress, Cooperative, Obese - Head Head Exam: Normal Inspection - ENT ENT Exam: Normal Exam - Neck Neck Exam: Normal Inspection - Respiratory Respiratory Exam: Clear to Auscultation - Bilaterally - Cardiovascular Cardiovascular Exam: RRR - GI/Abdominal GI/Abdominal Exam: Normal Bowel Sounds, Non Tender, Non Distended, Soft, No Organomegaly - Rectal Rectal Exam: Deferred - External Exam: Deferred - Extremities Additional Extremities Exam Details: There is no edema in her legs. There is amputation of the toes on the right. There is the halo ulcer on the right foot. The left big toe shows gangrene dry. There is also second toe ulcer with black eschar base. There is a right heel ulcer. Pulses detectable. - Back Back Exam: Normal Inspection - Neurological Neurological Exam: Alert, Oriented x 3, Speech Intact / Clear, Moves All Extre mities Equally Additional Neurological Exam Details: She has left facial palsy which is old Assessment and Plan - Patient Problems (1) Diabetic foot ulcer Current Visit: Yes Status: Acute Comment: She supposed to have surgery today. She is nothing by mouth. We'll hold her morning insulin as she had low blood sugar this morning. Will put her on D5 and half instead of the lactate because of the low sugar. Will order an EKG surgery. EKG did show incomplete right bundle which is present before there is also T inversion in V1 to V4 and also T inversion in V3 and aVF. To me they seem similar to the changes that she had back when she was here in December. She had an angiogram done this year because of abnormal stress test and no stent was inserted. I think since the need for surgery is urgent, I think she need can proceed with surgery. She is denying chest pain and shortness of breath currently. She probably need to have a repeat x-ray to look at the status of the pleural effusion that she had since last time she was here Code(s): E11.621 - Type 2 diabetes mellitus with foot ulcer; L97.509 - Non- pressure chronic ulcer of other part of unspecified foot with unspecified severity (2) Congestive heart failure Current Visit: No Status: Chronic Comment: Seems to be compensated. Code(s): I50.9 - Heart failure, unspecified (3) COPD (chronic obstructive pulmonary disease) Current Visit: No Status: Chronic Comment: Seem to be chronic and stable now. Continue same inhalers. Code(s): J44.9 - Chronic obstructive pulmonary disease, unspecified Qualifiers: (4) Diabetes Current Visit: No Status: Chronic Comment: She had low blood sugar this morning so we'll hold the morning insulin and put her on a D5 and a half fluid as she is nothing by mouth. Code(s): E11.9 - Type 2 diabetes mellitus without complications Qualifiers: Diabetes mellitus type: type 2 Diabetes mellitus custodial insulin use: with custodial use Diabetes mellitus complication status: with neurologic complications Diabetes mellitus complication detail: with polyneuropathy Qualified Code(s): E11.42 - Type 2 diabetes mellitus with diabetic polyneuropathy; E11.42 - Type 2 diabetes mellitus with diabetic polyneuropathy; E11.42 - Type 2 diabetes mellitus with diabetic polyneuropathy; E11.42 - Type 2 diabetes mellitus with diabetic polyneuropathy; E11.42 - Type 2 diabetes mellitus with diabetic polyneuropathy; 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
--- NOTE | 2018-01-30 07:37 | EKG ---
[address] [place] [address] Measurements Intervals [place] Rate: 63 P: 22 OR: 248 QRS: -65 QRSD: 109 T: -37 QT: 417 QTc: 425 Interpretive Statements SINUS RHYTHM WITH FIRST DEGREE AV BLOCK INCOMPLETE RIGHT BUNDLE BRANCH BLOCK [90+ ms QRS DURATION, TERMINAL R IN V1/V2, 40+ ms S IN I/aVL/V4/V5/V6] LEFT ANTERIOR FASCICULAR BLOCK [QRS AXIS <= -45, QR IN I, RS IN II] ST DEVIATION AND MARKED T-WAVE ABNORMALITY, CONSIDER ANTERIOR ISCHEMIA [-0.5+ mV T WAVE IN V3/V4] Compared to ECG 01/13/2018 12:17:15 Left anterior fascicular block now present Left-axis deviation no longer present Myocardial infarct finding no longer present T-wave abnormality still present Possible ischemia still present Electronically Signed On 01-30-18 08:13:32 MST by Bertin De La O MD [email or web address]
[2018-01-30] MEDS ORDERED: Multivitamin Tab 1 TAB PO SCH (09:00)
[2018-01-30] MEDS ORDERED: Sertraline Tab 50 MG TAB PO SCH (09:00)
[2018-01-30] MEDS ORDERED: CHOLECALCIFEROL 1000 IU TABLET PO SCH (09:00)
[2018-01-30] MEDS ORDERED: sitaGLIPtin Tab 100 MG TAB PO SCH (09:00)
[2018-01-30] MEDS ORDERED: INSULN ASP SUBCUT SCH ×3 (09:00→21:00)
[2018-01-30] MEDS ORDERED: INSULIN ASPART PROT SUBCUT SCH ×3 (09:00→21:00)
[2018-01-30] MEDS ORDERED: FUROSEMIDE 20 MG TABLET PO SCH (09:00)
[2018-01-30] MEDS: Chlorhexidine Gluc Soap 4% 15 ML LIQUID TOPICAL SCH (09:30)
[2018-01-30] MEDS: metFORMIN 500 MG TABLET PO SCH (09:47)
[2018-01-30] MEDS: Montelukast Tab 10 MG TAB PO SCH ×2 (09:48→21:05)
[2018-01-30] MEDS: PREGABALIN 100 MG CAPSULE PO SCH (09:48)
[2018-01-30] MEDS: MORPHINE SULFATE 30 MG PO SCH ×2 (10:24→16:07)
[2018-01-30] MEDS ORDERED: Lactated Ringers 1,000 ML PRIMARY IV ONE (11:08)
[2018-01-30] MEDS ORDERED: fentaNYL Inj 250 MCG/5 ML VIAL ONE (11:39)
[2018-01-30] MEDS ORDERED: MIDAZOLAM 5 MG/1 ML ONE (11:39)
[2018-01-30] MEDS ORDERED: D5W 500 ML PRIMARY IV ONE (11:53)
[2018-01-30] MEDS ORDERED: CITRIC ACID/SODIUM CITRATE 30 ML CUP PO ONE (11:59)
[2018-01-30] MEDS ORDERED: FAMOTIDINE 20 MG/2 ML VIAL IVP ONE (11:59)
[2018-01-30] MEDS ORDERED: KETAMINE 100 MG/1 ML - 5 ML ONE (12:04)
[2018-01-30] MEDS ORDERED: BACITRACIN 50,000 UNIT VIAL IRRIG ONE (12:25)
[2018-01-30] MEDS ORDERED: Sodium Chloride 0.9% vial 20 ML ONE (12:25)
[2018-01-30] MEDS ORDERED: Vancomycin Inj 1gm vial ONE (12:28)
--- NOTE | 2018-01-30 13:52 | GEN.OPNOTE ---
Operative Report - Operative Report Reimbursement Coordinator: Shay Mcintosh DPM Anesthesia Type: MAC Anesthesia Provider: Ana Carpenter CRNA Surgery Date: 01/30/18 Preoperative Diagnosis: 1. Ulcer of left 2nd toe dorsal the base, full thickness. 2. 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 3. Ulcer of right posterior heel deep to bone. Postoperative Diagnosis: 1. Ulcer of left 2nd toe dorsal the base, full thickness. 2. 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 3. Ulcer of right posterior heel deep to bone. Procedure: 1. Debridement of right heel ulceration deep to bone. 2. Debridement of right transmet ulceration deep to connective tissue. 3. Debridement of left 2nd toe dorsal base, deep to connective tissue. Estimated Blood Loss (mL): 2 (No pneumatic cuff used.) Fluids: 3.337 Zosyn IV. 200 mL lactated Ringer's. 500 mL D5W Description of Procedure: Mignon was brought to the operating room and placed in the supine position. Monitored anesthesia care was provided. The patient's feet were prepped and draped in the usual sterile fashion with a Betadine scrub. Attention was initially directed to the left foot second toe where a dorsal second toe ulceration was noted over the base. The necrotic slough base was sharply debrided away deep to connective tissue inflamed periosteum. At this level cultures were taken and submitted. The wound was then also asked with bacitracin in saline irrigation. There was then further debrided to a bleeding base. And amniotic membrane allograft was then cut and fixated to the ulceration. It was then covered with Xeroform, fluffs and cast padding. Finally a gentle Coban dressing was applied to maintain the dressing in place. Everyone's gloves were then changed. Next attention was directed to the right plantar transmetatarsal ulceration. The ulcer was full-thickness and the slough base/fibrin was debrided. A culture was then taken and submitted to pathology. The wound was then Pulsavac's. The wound was again debrided. It was also saucerized around the edges and the undermining. With a bleeding base a amniotic membrane allograft was then cut and applied and then covered with Xeroform fluffs and cast padding. Gloves were then again changed by everyone. Attention was now directed to the posterior right heel. The fibrin slough place was debrided, after which deep cultures were taken of the heel. The wound was then irrigated with the Pulsavac solution. Deeper curette was then performed and any loose, necrotic or soft tissues were debrided. With all margins and depth bleeding, right medical OsteoSet resorbable mini beads impregnated with vancomycin were then placed into the wound which was deep to the calcaneus. And a dressing of Xeroform, fluffs, cast padding and then a gentle Coban applied to the entire foot. Capillary return was noted to both the left foot lesser toes, as the great toe has a gangrenous. Capillary return was noted to the right transmetatarsal amputation. The patient was then returned to recovery to continue her inpatient hospital stay. Procedure Codes - [facility] Procedures Primary Podiatry Procedure: Other CPT Code(s) (CPT 71255 Debridement right heel to bone. CPT 42679 Debridment right transmet to fascia subcutaneous tissues CPT 46842 Debridment left 2nd toe base/MTPJ deep to fascia subcutaneous tissues.) Secondary Podiatry Procedure: Other CPT Code(s) (CPT 38166 Application of EpiFix Graft amniograft left 2nd toe ulcer. and Q4131, 0636 for each sq centimeter. CPT 07339 Graft amniograft right trasnmet ulcer. and Q4131, 0636 for each sq centimeter.)
--- NOTE | 2018-01-30 14:33 | DI ---
XR CXR 1VW 01/30/2018 2:07 PM HISTORY: [facility] [place] DI ^YES ^SOB Comparison: 01/13/2018. Findings: A single portable frontal view of the chest is submitted. Images demonstrate right lung base airspace disease. There is also likely an underlying pleural effus ion. There is no large pneumothorax. The cardiomediastinal silhouette is enlarged with increased pulm onary vasculature. Atheromatous calcifications are present in the arch of the tortuous thoracic aorta . The osseous structures are not significantly changed Impression: 1. Right lung base airspace disease. Followup to resolution is recommended. There is also likely an u nderlying right pleural effusion. 2. Cardiomegaly with increased pulmonary vasculature, findings commonly associated with pulmonary rito ma in the setting of heart failure.
[2018-01-30] MEDS ORDERED: ONDANSETRON 4 MG/2 ML VIAL IVP PRN (14:37)
[2018-01-30] MEDS ORDERED: DOCUSATE 100 MG CAPSULE PO PRN (14:37)
[2018-01-30] MEDS ORDERED: LIDOCAINE W/ SODIUM BICARB 0.5 ML SYR SUBD PRN (14:37)
[2018-01-30] MEDS ORDERED: OMEPRAZOLE 20 MG CAPSULE PO PRN (14:37)
[2018-01-30] MEDS ORDERED: CALCIUM CARBONATE 500 MG (TUMS) CHEWABLE TABLET PO PRN (14:37)
[2018-01-30] MEDS ORDERED: ACETAMINOPHEN 325 MG TABLET PO PRN (14:37)
[2018-01-30] MEDS ORDERED: ALBUTEROL INH PRN (15:00)
--- NOTE | 2018-01-30 15:25 | PTI REPORT ---
Thank you for the referral of Mignon Westbrook. She was seen on 01/30/18 for an inpatient evaluation secondary to weakness and wound care. SUBJECTIVE: The patient is a 62-year-old female who presented to the hospital secondary to wounds on both her right and left feet. Per nursing report, the patient is scheduled for surgery at noon today. They are unsure if they are just going to do an I&D or possible amputation of toe. We will know those results after her surgery. The patient reports that she is doing well this morning. The patient states that she lives here in [place] in a third floor apartment. She states that she uses a single point cane primarily when she is ambulating, especially on uneven surfaces. She denies any recent falls. The patient states that she has a home health aide come in and help out three times a week for two hours at a time to help with showering, light cleaning, and also getting the patient's groceries into her apartment. The patient states that approximately two weeks ago she started utilizing oxygen multimedia manager and is on two liters of oxygen constantly instead of on a PRN basis. The patient has a long history of wounds/ulcers on her bilateral feet and has had amputation prior on the right lower extremity for her toes. PAST MEDICAL HISTORY: Past medical history can be found in the patient's medical record. OBJECTIVE FINDINGS: General observations: The patient was alert and oriented to setting upon PT arrival. The patient was seated edge of bed when the therapist arrived. The patient was on two liters of oxygen and did have an IV in place. The patient demonstrated good seated balance. Transfers: The patient was able to transfer from seated to standing with stand by assist x1 for safety. The patient demonstrated good standing balance with a widened base of support. The patient was able to bend down and pick remover an object from the ground. She did use hand hold assist from the bed on the left side when she bent down to pick remover the object. The patient is able to stand with eyes closed x10 seconds with a widened base of support. Strength: In a seated position the patient demonstrates 4+/5 bilateral lower extremity strength. Balance: We will further assess the patient's balance once she does undergo surgery as this will affect her overall balance and how she is functioning. The therapist will plan a re-evaluation at that time as this evaluation is not as comprehensive as how she will be doing after surgery. ASSESSMENT: Problem List: Wound care Generalized weakness/decreased endurance Poor balance Short-Term Goals: To be met by discharge from inpatient: Patient will be able to transfer from bed to stand safely and independently. Patient will be able to ambulate at least 150 feet with appropriate assistive device safely and independently. Patient will be able to ascend and descent a couple flights of stairs safely and independently with appropriate assistive device in order to be able to get into and out of her apartment. Patient will demonstrate good standing balance with appropriate assistive device in order to be able to perform daily activities around her home such as re- heating meals and ADLs at the sink and in her bathroom. Long-Term Goals: To be met following discharge from inpatient: Patient may be seen by outpatient physical therapy if deemed necessary upon time of discharge. TREATMENT PLAN: Patient will be seen B.I.D during the week and one time per day over the weekend as an inpatient to address the above goals and objectives. INITIAL TREATMENT: Treatment today consisted of the initial evaluation activities only. ANTONIETTA
[2018-01-30] MEDS: D5-1/2NS 1,000 ML PRIMARY IV SCH ×2 (16:05→16:27)
--- NOTE | 2018-01-30 16:39 | OTI REPORT ---
Thank you for the referral of Mignon Westbrook. She was seen on 01/30/18 for an occupational therapy inpatient evaluation secondary to weakness and open wounds. SUBJECTIVE: The patient is a 62-year-old female who is being seen secondary to chronic wounds that have been on both of her feet. She is thinking they may do a debridement of her right heel as well as an amputation of her second toe on the left side. The patient does live on a third floor apartment in low income housing. She reports that she has been doing well getting up and down the stairs by herself; however, if she has grocery bags or anything that she has to carry up and down the stairs, that has been the most difficult thing for her. She does have neighbor kids that sometimes help her, but she cannot always get their help to carry he groceries for her. PAST MEDICAL HISTORY: Past medical history can be found in the patient's medical record. OBJECTIVE FINDINGS: Bed mobility: The patient was able to come from supine to sit independently. Range of motion: She had within functional limits for upper extremity active range of motion. Strength: Strength for shoulder flexion is 4/5, shoulder abduction is 4/5, shoulder extension is 4+/5, elbow flexion/extension is 4/5, and wrist flexion/extension is 4/5. Endurance: The patient's activity tolerance is fair. Activities of daily living: The patient was independent in dressing upper and lower extremities. The patient is able to functionally stand and reach with min assist. The patient does lose her balance somewhat. ASSESSMENT: The patient would benefit from skilled occupational therapy to address her upper extremity strengthening activities. Right now she is independent with ADLs; however, based on what surgery they do this afternoon, we will reassess her needs. If they do a left toe amputation this may affect her balance and her abilities to complete her ADLs. Short-Term Goals: To be met by discharge from inpatient: Patient will be able to carry items up a stairwell with increased time and modified independence. Patient will increase upper extremity strength to 5/5 bilaterally to improve strength for ADLs and functional tasks. Patient will complete all functional transfers safely and with modified independence. Long-Term Goals: To be met following discharge from inpatient: Patient will be able to return home demonstrating independence with all functional activities and ADLs. TREATMENT PLAN: Patient will be seen B.I.D during the week and one time per day over the weekend as an inpatient to address the above goals and objectives. INITIAL TREATMENT: Treatment today consisted of the initial evaluation followed by the patient completing functional transfer from bed to chair independently followed by upper extremity active range of motion and bed mobility with independence. ANTONIETTA
--- NOTE | 2018-01-30 16:54 | OT.PROG ---
Progress Note Progress Note: S: pt stated she was doing good. She understands that she has some stairs to go up and that friends can help her if need be. O: pt was seen in her room and completed UE exercise with BTB in all planes x15 to increase strength to assist with use of walker. OT assisted PT with ambulation for safety. A: pt completed exercises well, and will continue to benefit from therapy to increase strength as she will be using walker post surgery. P: continue per POC.
[2018-01-30] MEDS: MORPHINE SULFATE 30 MG PO PRN (17:01)
--- NOTE | 2018-01-30 17:02 | PT.PROG ---
Progress Note Progress Note: S. Patient stated that she is feeling alright this afternoon. O. Patient was fitted for a walker and a cast shoe on each foot. Patient then ambulated 50 feet in the quinonez and returned to her room where she was left in bed with alarm and call light. A. Patient was instructed on non weight bearing status, however patient was struggling to maintain non weight bearing. Patient would benefit from continued therapy to increase strength and mobility at this time. P. Continue POC.
--- NOTE | 2018-01-30 20:07 | CRNA.PROGR ---
Anesthesia Time - Procedure/Recovery Time Start Date: 01/30/18 Anesthesia : Time In: 12:06 Anesthesia : Time Out: 13:35 - Other Weight: 111.674 kg Height: 5 ft 8 in Body Mass Index (BMI): 37.4 Physical Status: P3 Anesthesia Type: MAC
[2018-01-30] MEDS ORDERED: metFORMIN 500 MG TABLET PO SCH (21:00)
[2018-01-30] MEDS ORDERED: Simvastatin Tab 80 MG TAB PO SCH (21:00)
[2018-01-30] MEDS ORDERED: PREGABALIN 100 MG CAPSULE PO SCH (21:00)
[2018-01-30] MEDS: Pregabalin Cap 150mg capsule PO SCH (21:05)
[2018-01-30] MEDS: sitaGLIPtin Tab 100 MG TAB PO SCH (21:05)
[2018-01-30] MEDS: Simvastatin Tab 80 MG TAB PO SCH (21:06)
[2018-01-31] MEDS: MORPHINE SULFATE 30 MG PO PRN ×4 (00:58→22:02)
[2018-01-31] MEDS: Piperacillin/Tazobactam Inj 3.375 GM in Sodium Chloride 0.9% 100 ML IV SCH ×2 (03:05→11:04)
[2018-01-31 05:00] LABS: BASOPHILS # (AUTO) 0.07 10*3/UL; BASOPHILS % (AUTO) 0.6 % (0-1); EOSINOPHILS # (AUTO) 0.14 10*3/UL; EOSINOPHILS % (AUTO) 1.2 % (0-8); Hematocrit [HCT] 46.7 % (37.0-47.0); Hemoglobin [HGB] 14.4 g/dL (12.0-16.0); LYMPHOCYTES # (AUTO) 1.76 10*3/uL; MEAN CORPUSCULAR HEMOGLOBIN 29.2 PG (27-31); MEAN CORPUSCULAR HGB CONC 30.8 g/dL (33-37); MEAN CORPUSCULAR VOLUME 94.7 FL (81-99); MEAN PLATELET VOLUME 12.3 FL (7.4-12.2); MONOCYTES # (AUTO) 0.95 10*3/UL (0.3-0.8); MONOCYTES % (AUTO) 8.3 % (5-15); NEUTROPHILS # (AUTO) 8.46 10*3/UL; NEUTROPHILS % (AUTO) 74.1 % (50-80); RED BLOOD COUNT 4.93 10^6/uL (4.20-5.40)
[2018-01-31 05:08] LABS: PLATELET MORPHOLOGY COMMENT NORMAL MORPHOLOGY (NORM); RBC MORPHOLOGY COMMENT NORMAL MORPHOLOGY (NORM); WBC MORPHOLOGY COMMENT NORMAL MORPHOLOGY (NORM)
[2018-01-31] MEDS: TIOTROPIUM BROMIDE 18 MCG CAPSULE INH SCH (06:24)
[2018-01-31] MEDS: BUDESONIDE INH SCH ×2 (06:25→19:12)
[2018-01-31] MEDS: FORMOTEROL FUMARATE INH SCH ×2 (06:25→19:12)
[2018-01-31] MEDS: FUROSEMIDE 20 MG TABLET PO SCH (06:40)
[2018-01-31] MEDS ORDERED: FUROSEMIDE 20 MG TABLET PO SCH (07:00)
--- NOTE | 2018-01-31 08:38 | PDOC(PROG) ---
Date of Service: 01/31/18 Time of Service: 08:30 Interval History: Subjective Patient is denying new symptoms. Breathing is okay. She wants to go home. Objective : Data - Labs CBC and BMP: 01/31/18 04:35 01/31/18 16:19 Objective : Exam - General General Appearance: No Acute Distress, Cooperative, Obese - Head Head Exam: Normal Inspection - Eye Eye Exam: Normal Appearance - ENT ENT Exam: Normal Exam - Neck Neck Exam: Normal Inspection - Respiratory Additional Respiratory Exam Details: Decreased breath sound at the right lung base otherwise clear - Cardiovascular Cardiovascular Exam: RRR - GI/Abdominal GI/Abdominal Exam: Normal Bowel Sounds, Non Tender, Non Distended, Soft, No Organomegaly - Rectal Rectal Exam: Deferred - External Exam: Deferred Exam: Deferred - Extremities Additional Extremities Exam Details: Dressing applied to the feet. - Back Back Exam: Normal Inspection - Neurological Neurological Exam: Alert, Oriented x 3, CN II-XII Intact, Speech Intact / Clear, Moves All Extremities Equally - Psychiatric Psychiatric Exam: Normal Affect Assessment and Plan - Patient Problems (1) Diabetic foot ulcer Current Visit: Yes Status: Acute Comment: Status post debridement. Management per Dr. Mcintosh. He will see her today and then let me know whether she can be discharged. Continue current antibiotics for now Code(s): E11.621 - Type 2 diabetes mellitus with foot ulcer; L97.509 - Non- pressure chronic ulcer of other part of unspecified foot with unspecified severity (2) Congestive heart failure Current Visit: No Status: Chronic Comment: Seems to be compensated. Continue Lasix. I increased the Lasix to 40 mg a day from 20 mg a day. Need to have her BMP monitored later on as an outpatient if she goes home today. Code(s): I50.9 - Heart failure, unspecified (3) COPD (chronic obstructive pulmonary disease) Current Visit: No Status: Chronic Comment: Stable continue current inhalers Code(s): J44.9 - Chronic obstructive pulmonary disease, unspecified Qualifiers: (4) Diabetes Current Visit: No Status: Chronic Comment: I have held her night dosage of insulin because of borderline blood sugar. Will resume usual medication today. Code(s): E11.9 - Type 2 diabetes mellitus without complications Qualifiers: Diabetes mellitus type: type 2 Diabetes mellitus termite inspector insulin use: with termite inspector use Diabetes mellitus complication status: with neurologic complications Diabetes mellitus complication detail: with polyneuropathy Qualified Code(s): E11.42 - Type 2 diabetes mellitus with diabetic polyneuropathy; E11.42 - Type 2 diabetes mellitus with diabetic polyneuropathy; E11.42 - Type 2 diabetes mellitus with diabetic polyneuropathy; E11.42 - Type 2 diabetes mellitus with diabetic polyneuropathy; E11.42 - Type 2 diabetes mellitus with diabetic polyneuropathy; Z79.4 - [facility] (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; Z79.4 - [facility] (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; Z79.4 - emt intermediate (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; Z79.4 - [facility] (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 (5) Pleural effusion Current Visit: No Status: Acute Comment: I don't think she has pneumonia as I said yesterday. The pleural effusion is less than what is was last month. As I said I increased the dosage of the Lasix. I did tell her that if she goes home will order repeat x-ray before she follow-up with Dr. Raygoza as an outpatient. If his fluids continue to improve then probably there is no need for another thoracocentesis but if it is still there may be she need to have another thoracocentesis for analysis. As unfortunately was it not done last time she was here. Code(s): J90 - Pleural effusion, not elsewhere classified
[2018-01-31] MEDS: Pregabalin Cap 150mg capsule PO SCH ×2 (08:54→20:35)
[2018-01-31] MEDS: Sertraline Tab 50 MG TAB PO SCH (08:54)
[2018-01-31] MEDS: sitaGLIPtin Tab 100 MG TAB PO SCH (08:54)
[2018-01-31] MEDS: Multivitamin Tab 1 TAB PO SCH (08:54)
[2018-01-31] MEDS ORDERED: INSULN ASP SUBCUT SCH (09:00)
[2018-01-31] MEDS ORDERED: metFORMIN 500 MG TABLET PO SCH (09:00)
[2018-01-31] MEDS ORDERED: INSULIN ASPART PROT SUBCUT SCH (09:00)
[2018-01-31] MEDS: CHOLECALCIFEROL 1000 IU TABLET PO SCH (09:34)
[2018-01-31] MEDS ORDERED: DEXTROSE 50%-WATER SYRINGE 50 ML SYRINGE IVP ONE ×5 (11:53→23:01)
--- NOTE | 2018-01-31 12:15 | CRNA.PROGR ---
Anesthesia Note - Progress Notes Anesthesia Progress Note: Pt up in bed is not having any pain, looking forward to [facility]
[2018-01-31] MEDS: HYDROmorphone 2 MG/1 ML IVP PRN ×4 (12:19→22:02)
[2018-01-31] MEDS: Montelukast Tab 10 MG TAB PO SCH (20:35)
[2018-01-31] MEDS: Simvastatin Tab 80 MG TAB PO SCH (20:36)
[2018-01-31] MEDS: CEPHALEXIN 500 MG CAPSULE PO SCH (20:36)
[2018-02-01 04:40] LABS: HEMOGLOBIN A1C 8.71 % (4.2-6.0)
[2018-02-01 04:48] LABS: BLOOD UREA NITROGEN 25 mg/dL (7-22); BUN/CREATININE RATIO 27.77 (6-20)
[2018-02-01] MEDS: FORMOTEROL FUMARATE INH SCH (06:41)
[2018-02-01] MEDS: TIOTROPIUM BROMIDE 18 MCG CAPSULE INH SCH (06:41)
[2018-02-01] MEDS: BUDESONIDE INH SCH (06:41)
[2018-02-01] MEDS: MORPHINE SULFATE 30 MG PO PRN (07:07)
[2018-02-01] MEDS: FUROSEMIDE 20 MG TABLET PO SCH (07:07)
[2018-02-01] MEDS: HYDROmorphone 2 MG/1 ML IVP PRN (08:27)
[2018-02-01] MEDS: CHOLECALCIFEROL 1000 IU TABLET PO SCH (08:27)
[2018-02-01] MEDS: Multivitamin Tab 1 TAB PO SCH (08:27)
[2018-02-01] MEDS: CEPHALEXIN 500 MG CAPSULE PO SCH (08:27)
[2018-02-01] MEDS: Sertraline Tab 50 MG TAB PO SCH (08:27)
[2018-02-01] MEDS: Pregabalin Cap 150mg capsule PO SCH (08:27)
--- NOTE | 2018-02-01 10:23 | DCSUMMARY ---
Hospitalization Summary Admit Date: 01/29/2018 Discharge Date: 02/01/18 Hospital Course: Discharge diagnoses 1. Diabetic foot ulcers status post debridement 2. Diabetes 3. COPD 4. Hypoglycemia resolved 5. Chronic pain syndrome 6. History of peripheral neuropathy 7. 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 History of hypercholesterolemia 10. Right pleural effusion need follow-up Hospital course This is a 62 years old female with medical history significant for history of diabetes, COPD, chronic pain syndrome with peripheral neuropathy, and history of hypertension who was referred to the hospital from Dr. [facility] to be admitted for debridement of multiple feet ulcers and elevated white count. Patient was admitted to the hospital by Dr. Rodriguez please see his note. Patient was put on IV Zosyn. White count was elevated at 15,000 when she came in. I saw her the next day prior to surgery she did have a hypoglycemic episode however we thought that related to the fact that she received her medication the night before and she was nothing by mouth. We did switch her fluid to dextrose. She had debridement done and came up to the floor. she Started eating. The next day we restarted her on her usual insulin but we've held her metformin and continued with the Januvia. She was seen by Dr. Mcintosh and from their point of view she can be discharged. She will need follow-up with PT and with them for dressing changes. However the day before discharge her blood sugar was checked and blood sugar went to the 30s she was still awake denying symptoms. We kept her overnight she had to receive multiple D50 IV to keep her blood sugar within normal. She remained though asymptomatic from it. We've held all her medications. On the day of discharge she was still denying symptoms. Exam was unremarkable. Her blood sugar checked was in the 70s and also before discharge was 129. We thought that she could be discharged home however we instructed her to hold all her diabetes medications including insulin for now. She said her machine broke so she was not checking her blood sugar last month. Apparently she can't tell when her blood sugar is low. So I think for the time being is to hold all medications for now. Check her blood sugar numbers if her blood sugar started to go up more than 150 I think she can probably restart her Janumet. And if it persists to be high then she can restart the insulin but at the lower dosage may be 10 units from the previous dosage that she had before. She need to write all her numbers down and bring it to Dr. Raygoza office on her appointment day. In addition she did have a repeat chest x-ray there is still some right pleural effusion to me it is less than what it was before but still present. I did increase the dosage of her Lasix from 20-40 mg. She'll need to have a repeat chemistry on and also repeat the chest x-ray to look at the effusion to see whether it is decreasing in size. Unfortunately last time when she was here at the hospital the fluid was not sent for analysis. if its larger in size maybe she need to have another thoracocentesis for diagnostic purposes. Growth from one of the cultures showed enterococcus so we switched her antibiotics to Augmentin from Keflex on discharge. Discharge instruction Diet regular activity as started Medications Current Medication(s) Medication Instructions Recorded Confirmed Type Multivitamin [Daily Vitamin] 1 tab PO DAILY tab 11/03/13 01/22/18 History Cholecalciferol (Vitamin D3) 1 cap PO QD #30 cap 05/19/14 01/22/18 History [Vitamin D3] Blood Sugar Diagnostic [Contour 1 strip IN 5XD #450 strip 09/01/15 01/22/18 History Test Strip] Omeprazole 1 cap PO QD PRN #30 cap 11/21/15 01/22/18 History Sodium Chloride [Wound Wash Saline] 210 ml MC BID #1 spray 01/02/16 01/22/18 Rx Sertraline HCl [Zoloft] 100 mg PO DAILY tab 01/17/17 01/22/18 Rx morphine ER 30 mg tablet,extended 30 mg PO QID #90 tab 03/19/17 01/22/18 History release naloxone 4 mg/actuation nasal spray 4 mg INASL ONCE PRN 03/19/17 01/22/18 History pregabalin 100 mg capsule 100 mg PO BID #90 cap 03/19/17 01/22/18 History conjugated estrogens 0.625 mg/gram 1 applic VAGINAL .weekly #30 g 04/03/17 01/22/18 Rx vaginal cream insulin aspar prt-insulin aspart 35 unit SUBCUT QPM #15 ml 05/13/17 01/22/18 Rx 100 unit/mL (70-30) subcutaneous soln chlorhexidine gluconate 4 % 1 applic TOPICAL BID #236 ml 06/11/17 01/22/18 Rx topical liquid budesonide-formoterol HFA 160 2 puff INH BID #1 inh 08/21/17 01/22/18 Rx mcg-4.5 mcg/actuation aerosol inhaler Albuterol Sulfate [Ventolin Hfa] 2 puff INH Q4-6H PRN 08/24/17 01/22/18 History Insulin Aspart Prot/Insuln Asp 45 unit SUBCUT QAM 08/24/17 01/22/18 History [Novolog Mix 70-30 Vial] Montelukast Sodium [Singulair] 10 mg PO BID 08/24/17 01/22/18 History estradiol 0.05 mg/24 hr weekly 1 patch TRANSDERM 2XW #8 ea 09/09/17 01/22/18 Rx transdermal patch tiotropium bromide 18 mcg capsule 18 mcg INH QD #30 inhaler 10/10/17 01/22/18 Rx with inhalation device albuterol sulfate HFA 90 2 puff INH Q4-6H PRN #18 g 01/27/18 Rx mcg/actuation aerosol inhaler furosemide 20 mg tablet 20 mg PO QDAY #30 tab 01/27/18 Rx pen needle, diabetic 31 gauge x 1 ea MISCELLANEOUS BID #60 unit 01/27/18 Rx 3/" simvastatin 80 mg tablet 80 mg PO QDAY #90 tab 01/27/18 Rx sitagliptin 50 mg-metformin 1,000 1 tab PO BID #60 tab 01/28/18 Rx mg tablet Amoxicillin/Potassium Clav 1 ea PO BID #14 tab 02/01/18 Rx [Augmentin 875-125 Tablet] Blood Sugar Diagnostic [Blood 1 ea MC QID 30 Days strip 02/01/18 Rx Glucose Test Strip] Furosemide [Lasix] 40 mg PO DAILY@0700 tab 02/01/18 Rx Follow-up as scheduled with Dr. Raygoza and with industrial organization manager. Condition at discharge was stable for discharge Exam - Vitals Vital Signs: Vital Signs Temperature 97 F Temperature Source Temporal Artery Scan Pulse Rate [Apical] 84 Pulse Rate [Pulse Oximeter] 93 Pulse Rate 63 Respiratory Rate 20 Blood Pressure [Right Arm] 144/98 Blood Pressure 126/83 Pulse Ox 90 Oxygen Flow Rate 2 Oxygen Delivery Method Nasal Cannula Height 5 ft 8 in Weight 252 lb - General General Appearance: No Acute Distress, Obese - Head Head Exam: Normal Inspection - Eye Eye Exam: POSITIVE: Normal Appearance - ENT ENT Exam: POSITIVE: Normal Exam - Neck Neck Exam: Normal Inspection - Respiratory Additional Respiratory Exam Details: Decreased breath sounds right base but otherwise clear - Cardiovascular Cardiovascular Exam: POSITIVE: RRR - GI/Abdominal GI/Abdominal Exam: POSITIVE: Normal Bowel Sounds, Non Tender, Non Distended, Soft, No Organomegaly - Rectal Rectal Exam: POSITIVE: Deferred - External Exam: POSITIVE: Deferred Exam: POSITIVE: Deferred - Extremities Additional Extremities Exam Details: Dressing applied to the feet - Back Back Exam: POSITIVE: Normal Inspection - Neurological Neurological Exam: POSITIVE: Alert, Oriented x 3, CN II-XII Intact, No Facial Droop, Speech Intact / Clear, Moves All Extremities Equally - Psychiatric Psychiatric Exam: POSITIVE: Normal Affect Patient Problems - Patient Problem List (1) Diabetic foot ulcer Status: Acute Code(s): E11.621 - Type 2 diabetes mellitus with foot ulcer; L97.509 - Non-pressure chronic ulcer of other part of unspecified foot with unspecified severity Category: Medical (2) Congestive heart failure Status: Chronic Comment: TTE 07/04/16 - Grade II LV diastolic dysfunction, LV EF 65% (nl LV systolic function and regional wall motion), no LV hypertrophy, peak systolic pulmonary pressure severely elevated at 75 mmHg Code(s): I50.9 - Heart failure, unspecified Category: Medical (3) COPD (chronic obstructive pulmonary disease) Status: Chronic Code(s): J44.9 - Chronic obstructive pulmonary disease, unspecified Category: Medical (4) Diabetes Status: Chronic Comment: x25 years, insulin dependent Code(s): E11.9 - Type 2 diabetes mellitus without complications Qualifiers: Diabetes mellitus type: type 2 Diabetes mellitus residential insulin use: with residential use Diabetes mellitus complication status: with neurologic complications Diabetes mellitus complication detail: with polyneuropathy Qualified Code(s): E11.42 - Type 2 diabetes mellitus with diabetic polyneuropathy; E11.42 - Type 2 diabetes mellitus with diabetic polyneuropathy; E11.42 - Type 2 diabetes mellitus with diabetic polyneuropathy; E11.42 - Type 2 diabetes mellitus with diabetic polyneuropathy; E11.42 - Type 2 diabetes mellitus with diabetic polyneuropathy; Z79.4 - retirement (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; Z79.4 - retirement (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; Z79.4 - retirement (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; Z79.4 - retirement (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 Category: Medical (5) Pleural effusion Status: Acute Code(s): J90 - Pleural effusion, not elsewhere classified Category: Medical
== END 2018-02-01 11:45 | disposition home or self-care (01) ==
LOC: MED/SURG → PREINTOOBSV 19:07 → OPS 01-30 11:26 → MED/SURG 01-30 14:21
PROVIDERS: ADMIT Internal Medicine; ATTEND Internal Medicine

== ENCOUNTER 2018-04-24 14:26 | Inpatient (IN) ==
[2018-04-24] MEDS ORDERED: IPRATROPIUM/ALBUTEROL SULFATE 3 ML NEB NEB ONE ×2 (14:42→14:44)
[2018-04-24] MEDS ORDERED: Sodium Chloride 0.9% 1,000 ML PRIMARY IV ONE (14:43)
[2018-04-24] MEDS ORDERED: methylPREDNISolone 125 MG/2 ML VIAL IVP ONE (14:46)
--- NOTE | 2018-04-24 14:46 | EKG ---
[address] [address] Measurements Intervals [place] Rate: 93 P: 69 LA: 217 QRS: -68 QRSD: 114 T: 14 QT: 360 QTc: 411 Interpretive Statements SINUS RHYTHM WITH FIRST DEGREE AV BLOCK POSSIBLE LEFT ATRIAL ENLARGEMENT PATTERN CONSISTENT WITH PULMONARY DISEASE INCOMPLETE RIGHT BUNDLE BRANCH BLOCK LEFT ANTERIOR FASCICULAR BLOCK ST DEVIATION AND MODERATE T-WAVE ABNORMALITY, CONSIDER ANTERIOR ISCHEMIA [-0.1+ mV T WAVE IN V3/V4] Compared to ECG 03/30/2018 19:14:51 First degree AV block now present T-wave abnormality still present Possible ischemia still present Electronically Signed On 04-26-18 15:45:58 MST by Wicho Martin [email or web address]
[2018-04-24 15:04] LABS: VENOUS PH 7.42 (7.32-7.42)
[2018-04-24 15:10] LABS: BASOPHILS # (AUTO) 0.05 10*3/UL; BASOPHILS % (AUTO) 0.5 % (0-1); EOSINOPHILS # (AUTO) 0 10*3/UL; EOSINOPHILS % (AUTO) 0 % (0-8); Hematocrit [HCT] 45.4 % (37.0-47.0); Hemoglobin [HGB] 15.1 g/dL (12.0-16.0); LYMPHOCYTES # (AUTO) 0.66 10*3/uL; MEAN CORPUSCULAR HEMOGLOBIN 29.2 PG (27-31); MEAN CORPUSCULAR HGB CONC 33.3 g/dL (33-37); MEAN CORPUSCULAR VOLUME 87.6 FL (81-99); MEAN PLATELET VOLUME 12.4 FL (7.4-12.2); MONOCYTES # (AUTO) 1.25 10*3/UL (0.3-0.8); MONOCYTES % (AUTO) 13.3 % (5-15); NEUTROPHILS # (AUTO) 7.38 10*3/UL; NEUTROPHILS % (AUTO) 78.2 % (50-80); RED BLOOD COUNT 5.18 10^6/uL (4.20-5.40)
[2018-04-24 15:23] LABS: BLOOD UREA NITROGEN 17 mg/dL (7-22); BUN/CREATININE RATIO 21.25 (6-20); SERUM ALBUMIN 3.5 g/dL (3.5-4.8)
--- NOTE | 2018-04-24 15:26 | DI ---
XR CXR 1VW 04/24/2018 2:43 PM HISTORY: [facility] [place] DI ^cough, SOB, hypoxia Comparison: 03/30/2018. Findings: A single portable frontal view of the chest is submitted. Images demonstrate cardiomegaly with increased pulmonary vasculature. There is a small right pleural effusion. There is blunting of the left costophrenic angle which may represent a small pleural effusi on versus atelectasis or early airspace disease. There is no large pneumothorax. There is evidence of pulmonary artery hypertension with prominence of the bilateral leilani. The osseous structures are not significantly changed Impression: 1. There is cardiomegaly with increased pulmonary vasculature that raises concern for pulmonary edema in the setting of heart failure. 2. Small right and possible tiny left pleural effusions. 3. There is evidence of pulmonary artery hypertension.
[2018-04-24] MEDS ORDERED: Magnesium Sulfate 1gm (Premix) 1 GM/100 ML BAG IV ONE (15:35)
[2018-04-24 15:37] LABS: PLATELET MORPHOLOGY COMMENT NORMAL MORPHOLOGY (NORM); RBC MORPHOLOGY COMMENT SEE COMMENTS (NORM); WBC MORPHOLOGY COMMENT NORMAL MORPHOLOGY (NORM)
[2018-04-24 15:38] LABS: BILIRUBIN,URINE NEGATIVE (NEG); CLARITY,URINE CLEAR (CLEAR); COLOR,URINE YELLOW (Y); GLUCOSE, URINE (UA) NEGATIVE (NEG); OCCULT BLOOD,URINE MODERATE (NEG); PH,URINE 6.5 (5.0-8.5); PROTEIN,URINE 100 mg/dl (NEG); UROBILINOGEN,URINE 0.2 EU/dL (0.2)
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
[2018-04-24 15:50] LABS: RENAL EPITHELIAL CELLS,URINE RARE; SQUAMOUS EPITHELIAL CELL,UR FEW; URINE SAMPLE TYPE CLEAN CATCH URINE; YEAST,URINE FEW
--- NOTE | 2018-04-24 16:37 | DI ---
CT CTA Chest Non-Coronary WWO 04/24/2018 3:35 PM History: [facility] [place] ^SOB, elevated d-dimer Comparison: Chest x-ray from earlier the same day. CT chest without contrast 01/14/2018. CTA chest . Procedure: CT angiography of the pulmonary arteries was performed after the administration of 73 mL o f Isovue intravenous contrast. Findings: There is normal opacification of the pulmonary arteries with no evidence of filling defect. The main pulmonary artery remains dilated, consistent with pulmonary artery hypertension. In the lung bases, there is pulmonary vascular congestion and interlobular septal thickening. There i s less consolidation in the right lower lobe compared to the most recent chest CT. New left perihilar consolidation extends into the medial and anterior basal segments of the left lower lobe where there are patchy areas of groundglass attenuation. There is a small right pleural effusion. The blunting o f the left costophrenic angle on the chest radiograph is most likely due to atelectasis. Calcified no dules in the right and left lower lobes are not significantly changed. There are unchanged mediastinal and hilar lymph nodes. The aorta and branch vessels demonstrate man l course and caliber. There are atheromatous aortic and coronary artery calcifications. Heart size is enlarged with no pericardial effusion. There are mitral annular calcifications. There is a coarse ca lcification adjacent to the left thyroid lobe. The visualized upper abdominal structures are not significantly changed. The osseous structures are not significantly changed. There is no evidence of acute or healing rib fr actures. Impression: 1. No main or segmental pulmonary embolism. 2. Right lower lobe and left lower lobe airspace disease. Followup to resolution is recommended. 3. Small right pleural effusion. 4. Cardiomegaly with findings that could represent early cardiogenic pulmonary edema. 5. Pulmonary artery hypertension.
[2018-04-24] MEDS ORDERED: cefTRIAXone Inj 2 GM in Sodium Chloride 0.9% 100 ML IV ONE (16:51)
--- NOTE | 2018-04-24 17:13 | PDOC ---
HPI - History of Present Illness Date of Service: 04/24/18 Time of Service: 17:10 Chief Complaint: Shortness of breath History of Present Illness: Is a 62-year-old female well-known to her service with past medical history of multiple medical issues including severe emphysema, COPD, pulmonary hypertension, coronary artery disease and diabetes presents to the ER with 2 day history of increased shortness of breath as chest pain at present time we swelling or lower extremities chronic taken Keflex for infection in her right foot. CT scan of her chest revealed pneumonia no PE Past Medical History Medical History: 1. COPD. 2. Diabetes mellitus type II complicated by peripheral neuropathy. 3. Hypertension. 4. Tobacco abuse. 5. Chronic pain syndrome related to peripheral neuropathy. 6. Hormone replacement therapy status post hysterectomy with severe vasomotor symptoms. 7. 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 8. Hypercholesterolemia. 9. Renal insufficiency, stage II. 10. Chronic ulceration plantar right second metatarsal head. Apparently associated with osteomyelitis, on daptomycin currently. Surgical History: 1. Hysterectomy. 2. Carpal tunnel repair. 3. Artery repair on her right wrist. 4. Amputation of some toes on her right foot. 5. Appendectomy Pertinent Family History: Mother with complications of diabetes Past Social History: Smokes and states she's had for per day, doesn't drink, lives alone here in [place] she has 4 cats. No children. Tobacco Use: Current Every Day Smoker In the Past 12 Months, Have Used or Abuse Any of the Following Substance: None Medication / Allergies Home Medications: Home Medications Medication Instructions Recorded Confirmed Type Multivitamin [Daily Vitamin] 1 tab PO DAILY tab 11/03/13 04/24/18 History Cholecalciferol (Vitamin D3) 1 cap PO QD #30 cap 05/19/14 04/24/18 History [Vitamin D3] Omeprazole 1 cap PO QD PRN #30 cap 11/21/15 04/24/18 History morphine ER 30 mg tablet,extended 30 mg PO QID #90 tab 03/19/17 04/24/18 History release naloxone 4 mg/actuation nasal spray 4 mg INASL ONCE PRN 03/19/17 04/24/18 History pregabalin 100 mg capsule 100 mg PO BID #90 cap 03/19/17 04/24/18 History conjugated estrogens 0.625 mg/gram 1 applic VAGINAL .weekly #30 g 04/03/17 04/24/18 Rx vaginal cream budesonide-formoterol HFA 160 2 puff INH BID #1 inh 08/21/17 04/24/18 Rx mcg-4.5 mcg/actuation aerosol inhaler estradiol 0.05 mg/24 hr weekly 1 patch TRANSDERM 2XW #8 ea 09/09/17 04/24/18 Rx transdermal patch albuterol sulfate HFA 90 2 puff INH Q4-6H PRN #18 g 01/27/18 04/24/18 Rx mcg/actuation aerosol inhaler pen needle, diabetic 31 gauge x 1 ea MISCELLANEOUS BID #60 unit 01/27/18 04/24/18 Rx 3" simvastatin 80 mg tablet 80 mg PO QDAY #90 tab 01/27/18 04/24/18 Rx sitagliptin 50 mg-metformin 1,000 1 tab PO BID #60 tab 01/28/18 04/24/18 Rx mg tablet oxygen-air delivery systems device See Dose Instructions .ROUTE 02/06/18 04/24/18 History .MEDSUPPLY #1 sertraline 50 mg tablet 50 mg PO QDAY tab 02/06/18 04/24/18 History sodium chloride 0.9 % topical spray 1 applic TOPICAL BID #1 spray 02/06/18 04/24/18 Rx furosemide 20 mg tablet 20 mg PO BID #60 tab 03/10/18 04/24/18 Rx insulin aspar prt-insulin aspart 35 unit SUBCUT QPM #15 ml 04/01/18 04/24/18 Rx 100 unit/mL (70-30) subcutaneous soln insulin aspar prt-insulin aspart 45 unit SUBCUT QAM #15 ml 04/01/18 04/24/18 Rx 100 unit/mL (70-30) subcutaneous soln montelukast 10 mg tablet 10 mg PO QPM #30 tab 04/01/18 04/24/18 Rx tiotropium bromide 18 mcg capsule 18 mcg INH QD #30 inhaler 04/01/18 04/24/18 Rx with inhalation device Cephalexin [Keflex] 500 mg PO TID 04/24/18 04/24/18 History Allergies/Adverse Reactions: Allergies Allergy/AdvReac Type Severity Reaction Status Date / Time adhesive Allergy RASH Verified 04/24/18 17:48 Exam - Vitals Vital Signs: Vital Signs Temperature 98.7 F Temperature Source Temporal Artery Scan Pulse Rate [Pulse Oximeter] 98 Pulse Rate 94 Respiratory Rate 24 Blood Pressure [Left Arm] 151/84 Pulse Ox 92 Oxygen Flow Rate 2 Oxygen Delivery Method Room Air Height 5 ft 8 in Weight 250 lb - General General Appearance: No Acute Distress, Cooperative - Respiratory Respiratory Exam: POSITIVE: Decreased Breath Sounds, Rales, Wheezes - Cardiovascular Cardiovascular Exam: POSITIVE: RRR, No Murmur, No Clicks, No Gallops, No Rubs, PMI Non-Displaced - GI/Abdominal GI/Abdominal Exam: POSITIVE: Normal Bowel Sounds, Non Tender, Non Distended, Soft, No Masses, No Hepatomegaly, No Splenomegaly, No Organomegaly - Extremities Extremities Exam: POSITIVE: No Clubbing Present, No Edema Present, No Cyanosis Present Results - Labs CBC and BMP: 04/24/18 14:55 04/24/18 14:55 Assessment and Plan - Patient Problems (1) Congestive heart failure Current Visit: Yes Status: Acute Comment: IV Lasix 40 twice a day Code(s): I50.9 - Heart failure, unspecified (2) COPD exacerbation Current Visit: No Status: Acute Code(s): J44.1 - Chronic obstructive pulmonary disease with (acute) exacerbation (3) Diabetic foot ulcer Current Visit: No Status: Acute Comment: Tinea Rocephin and Zithromax hold Keflex Code(s): E11.621 - Type 2 diabetes mellitus with foot ulcer; L97.509 - Non- pressure chronic ulcer of other part of unspecified foot with unspecified severity (4) Pneumonia Current Visit: No Status: Acute Comment: IV Rocephin and Zithromax Code(s): J18.9 - Pneumonia, unspecified organism (5) RSV (respiratory syncytial virus infection) Current Visit: Yes Status: Acute Code(s): B97.4 - Respiratory syncytial virus as the cause of diseases classified elsewhere
[2018-04-24] MEDS ORDERED: OMEPRAZOLE 20 MG CAPSULE PO PRN (17:42)
[2018-04-24] MEDS ORDERED: ESTROGENS,CONJUGATED 30 GM CREAM VAGINAL SCH (17:42)
[2018-04-24] MEDS ORDERED: LIDOCAINE W/ SODIUM BICARB 0.5 ML SYR SUBD PRN (17:42)
[2018-04-24] MEDS ORDERED: ONDANSETRON 4 MG/2 ML VIAL IVP PRN (17:42)
[2018-04-24] MEDS: ASCORBIC ACID Chewable 500 MG TABLET PO SCH (18:52)
[2018-04-24] MEDS: HEPARIN 5000 UNIT/1 ML SUBCUT SCH (18:52)
[2018-04-24] MEDS: ESTRADIOL 0.05 MG TRANSDERM SCH (19:06)
[2018-04-24] MEDS: IPRATROPIUM/ALBUTEROL SULFATE 3 ML NEB NEB SCH (19:47)
[2018-04-24] MEDS: FLUTICASONE/SALMETEROL 250/50 UD INHALER INH SCH (19:56)
[2018-04-24] MEDS ORDERED: MORPHINE SULFATE 30 MG PO SCH (21:00)
[2018-04-24] MEDS: Simvastatin Tab 80 MG TAB PO SCH (21:18)
[2018-04-24] MEDS: MORPHINE SULFATE 30 MG ER TABLET PO SCH (21:18)
[2018-04-24] MEDS: PREGABALIN 100 MG CAPSULE PO SCH (21:18)
[2018-04-24] MEDS: Montelukast Tab 10 MG TAB PO SCH (21:18)
[2018-04-24] MEDS: Sertraline Tab 50 MG TAB PO SCH (21:18)
[2018-04-24] MEDS: Insulin NPH/Reg 70/30 Kwikpen 100 UNIT/ML INSULN.PEN SUBCUT SCH (21:19)
[2018-04-24] MEDS: metFORMIN 500 MG TABLET PO SCH (21:40)
[2018-04-24] MEDS: sitaGLIPtin Tab 100 MG TAB PO SCH (22:52)
[2018-04-25] MEDS: HEPARIN 5000 UNIT/1 ML SUBCUT SCH ×3 (02:27→17:20)
[2018-04-25 05:03] LABS: Hemoglobin [HGB] 14.4 g/dL (12.0-16.0); MEAN CORPUSCULAR HGB CONC 32.7 g/dL (33-37); MEAN CORPUSCULAR VOLUME 88.5 FL (81-99); MEAN PLATELET VOLUME 12.7 FL (7.4-12.2); RED BLOOD COUNT 4.97 10^6/uL (4.20-5.40)
[2018-04-25 05:14] LABS: BLOOD UREA NITROGEN 20 mg/dL (7-22); SERUM ALBUMIN 3.4 g/dL (3.5-4.8)
[2018-04-25 05:57] LABS: PLATELET MORPHOLOGY COMMENT NORMAL MORPHOLOGY (NORM); RBC MORPHOLOGY COMMENT NORMAL MORPHOLOGY (NORM); WBC MORPHOLOGY COMMENT NORMAL MORPHOLOGY (NORM)
[2018-04-25 05:59] LABS: BAND NEUTROPHILS % 0 % (0-10); BASOPHILS % (MANUAL) 0 % (0-1); EOSINOPHILS % (MANUAL) 0 % (0-8); METAMYELOCYTES % 0 %; MONOCYTES % (MANUAL) 10 % (0-12); MYELOCYTES % 0 %; NEUTROPHILS % (MANUAL) 71 % (50-80); PROMYELOCYTES % 0 %
[2018-04-25] MEDS: IPRATROPIUM/ALBUTEROL SULFATE 3 ML NEB NEB SCH ×4 (06:27→18:34)
[2018-04-25] MEDS: FLUTICASONE/SALMETEROL 250/50 UD INHALER INH SCH ×2 (06:28→18:41)
[2018-04-25] MEDS: TIOTROPIUM BROMIDE 18 MCG CAPSULE INH SCH (06:30)
[2018-04-25] MEDS: FUROSEMIDE 10 MG/1 ML - 2 ML VIAL IVP SCH ×2 (07:09→12:25)
[2018-04-25] MEDS ORDERED: Acetaminophen 1000mg Inj 1,000 MG/100 ML VIAL IV PRN (08:21)
[2018-04-25] MEDS: PREGABALIN 100 MG CAPSULE PO SCH ×2 (08:41→21:27)
[2018-04-25] MEDS: ASCORBIC ACID Chewable 500 MG TABLET PO SCH (08:42)
[2018-04-25] MEDS: sitaGLIPtin Tab 100 MG TAB PO SCH ×2 (08:42→21:26)
[2018-04-25] MEDS: MORPHINE SULFATE 30 MG ER TABLET PO SCH ×4 (08:42→21:26)
[2018-04-25] MEDS: Insulin NPH/Reg 70/30 Kwikpen 100 UNIT/ML INSULN.PEN SUBCUT SCH ×2 (08:43→21:27)
[2018-04-25] MEDS: metFORMIN 500 MG TABLET PO SCH (10:08)
--- NOTE | 2018-04-25 10:13 | PDOC(PROG) ---
Interval History: Patient is doing much better less shortness of breath compared to yesterday still needing the antibiotics and nebs Objective : Data - Labs CBC and BMP: 04/25/18 04:35 04/25/18 04:35 Objective : Exam - General General Appearance: Cooperative - Respiratory Respiratory Exam: Rales, Rhonci - Cardiovascular Cardiovascular Exam: RRR, No Murmur, No Clicks, No Gallops, No Rubs, PMI Non- Displaced - GI/Abdominal GI/Abdominal Exam: Normal Bowel Sounds, Non Tender, Non Distended, Soft, No Masses, No Hepatomegaly, No Splenomegaly, No Organomegaly - Extremities Extremities Exam: No Clubbing Present, No Edema Present, No Cyanosis Present Assessment and Plan - Patient Problems (1) Congestive heart failure Current Visit: Yes Status: Acute Comment: Continue IV Lasix Code(s): I50.9 - Heart failure, unspecified (2) COPD exacerbation Current Visit: Yes Status: Acute Comment: Continue antibiotics and nebs Code(s): J44.1 - Chronic obstructive pulmonary disease with (acute) exacerbation (3) Diabetic foot ulcer Current Visit: No Status: Acute Comment: On Rocephin Code(s): E11.621 - Type 2 diabetes mellitus with foot ulcer; L97.509 - Non-pressure chronic ulcer of other part of unspecified foot with unspecified severity (4) Pneumonia Current Visit: Yes Status: Acute Comment: On Rocephin and Zithromax Code(s): J18.9 - Pneumonia, unspecified organism (5) RSV (respiratory syncytial virus infection) Current Visit: Yes Status: Acute Code(s): B97.4 - Respiratory syncytial virus as the cause of diseases classified elsewhere
[2018-04-25] MEDS ORDERED: traMADol 50 MG TABLET PO SCH ×2 (15:00→17:00)
[2018-04-25] MEDS ORDERED: CEFTRIAXONE SODIUM 2 GM VIAL IV ONE (17:10)
[2018-04-25] MEDS ORDERED: Sodium Chloride 0.9% 100 ML IV ONE (17:11)
[2018-04-25] MEDS ORDERED: cefTRIAXone Inj 2 GM in Sodium Chloride 0.9% 100 ML IV SCH (17:15)
[2018-04-25] MEDS: ESTRADIOL 0.05 MG TRANSDERM SCH (17:21)
[2018-04-25] MEDS ORDERED: VENTOLIN 90 MCG INH PRN (18:13)
[2018-04-25] MEDS: Montelukast Tab 10 MG TAB PO SCH (21:26)
[2018-04-25] MEDS: Sertraline Tab 50 MG TAB PO SCH (21:26)
[2018-04-25] MEDS: Simvastatin Tab 80 MG TAB PO SCH (21:27)
[2018-04-26] MEDS: HEPARIN 5000 UNIT/1 ML SUBCUT SCH ×2 (01:11→10:15)
[2018-04-26] MEDS: traMADol 50 MG TABLET PO PRN ×3 (01:11→11:58)
[2018-04-26] MEDS: IPRATROPIUM/ALBUTEROL SULFATE 3 ML NEB NEB SCH ×2 (06:10→10:34)
[2018-04-26] MEDS: FLUTICASONE/SALMETEROL 250/50 UD INHALER INH SCH (06:12)
[2018-04-26] MEDS: TIOTROPIUM BROMIDE 18 MCG CAPSULE INH SCH (06:13)
[2018-04-26 07:16] VITALS: BP 135/77; TEMP 97.3
[2018-04-26] MEDS: FUROSEMIDE 10 MG/1 ML - 2 ML VIAL IVP SCH ×2 (07:19→11:57)
[2018-04-26] MEDS ORDERED: MORPHINE SULFATE 30 MG PO SCH (09:00)
[2018-04-26] MEDS: ASCORBIC ACID Chewable 500 MG TABLET PO SCH (09:27)
[2018-04-26] MEDS: PREGABALIN 100 MG CAPSULE PO SCH (09:27)
[2018-04-26] MEDS: sitaGLIPtin Tab 100 MG TAB PO SCH (09:27)
[2018-04-26] MEDS: Insulin NPH/Reg 70/30 Kwikpen 100 UNIT/ML INSULN.PEN SUBCUT SCH (09:28)
--- NOTE | 2018-04-26 09:56 | DCSUMMARY ---
Hospitalization Summary Hospital Course: Final Discharge Diagnosis: Current Visit Problems Problem Status Onset Code COPD exacerbation Acute J44.1 Pneumonia Acute J18.9 Congestive heart failure Acute I50.9 RSV (respiratory syncytial virus infection) Acute B97.4 Diagnostic Data, Laboratory Data, and Procedures of Signifigance: CBC and BMP 04/25/18 04:35 04/25/18 04:35 History and Physical pertinent to Admission: Course of Hospitalization: This very nice 62-year-old female with multiple medical issues including rochelle betes, active smoking, diabetic foot ulcers and congestive heart failure. Comes in with the combination of pneumonia, and congestive heart failure. Patient was diuresed with IV Lasix also was started on antibiotics for her pneumonia her white count improved as well as her left shift patient is back to her baseline and is requesting to be discharged home she is on 2 L at home of oxygen we I checked personally with the pulse ox and she is maintaining 92% on room air on 2 L here in the hospital. We had a long discussion about her the importance of not smoking she promised that she woke up down or stop she is at 4 cigarettes a day now. She will go roll picker her prescription for Augmentin at [facility] since it is open today. She will get her IV antibiotics before she goes home. I did tell her to stop the Keflex since she will be on Augmentin to finish her course of antibiotics for her lower extremity foot ulcer. And to follow-up with the business services associate if needing to resume the Keflex later on. 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 in the room on agreement On the date of discharge, the patient was examined: Gen.: No acute distress, alert, nontoxic Heart: Regular rate and rhythm, no murmurs, clicks, gallops, or rubs Lungs: Clear to auscultation bilaterally, breathing is nonlabored Abdomen/GI: Normal tones on auscultation, soft, nontender, nondistended Musculoskeletal/extremities: No clubbing, cyanosis, or edema Vitals reviewed and are listed below Vital Signs (24 hrs) 04/25/18 10:08 04/25/18 10:09 04/25/18 11:00 Temperature Pulse Rate 79 79 75 Pulse Rate [Pulse Oximeter] Respiratory Rate 18 18 Blood Pressure [Left Arm] Pulse Ox 93 91 04/25/18 13:00 04/25/18 14:53 04/25/18 14:54 Temperature 97.6 F Pulse Rate 80 80 Pulse Rate [Pulse Oximeter] 83 Respiratory Rate 22 18 18 Blood Pressure [Left Arm] 117/72 Pulse Ox 91 93 04/25/18 15:00 04/25/18 16:12 04/25/18 18:34 Temperature 97.5 F Pulse Rate 70 72 Pulse Rate [Pulse Oximeter] 78 Respiratory Rate 20 18 Blood Pressure [Left Arm] 128/79 Pulse Ox 93 91 95 04/25/18 18:35 04/25/18 19:00 04/25/18 20:16 Temperature 96.9 F Pulse Rate 74 69 Pulse Rate [Pulse Oximeter] 74 Respiratory Rate 18 20 Blood Pressure [Left Arm] 132/70 Pulse Ox 91 90 04/25/18 23:00 04/26/18 00:11 04/26/18 03:00 Temperature 97.9 F Pulse Rate 81 71 Pulse Rate [Pulse Oximeter] 76 Respiratory Rate 16 Blood Pressure [Left Arm] 127/77 Pulse Ox 92 91 90 04/26/18 04:03 04/26/18 04:45 04/26/18 06:10 Temperature 98.7 F Pulse Rate 78 Pulse Rate [Pulse Oximeter] 80 Respiratory Rate 20 20 Blood Pressure [Left Arm] 142/79 Pulse Ox 91 92 93 04/26/18 06:11 04/26/18 07:00 04/26/18 07:14 Temperature 97.3 F Pulse Rate 78 Pulse Rate [Pulse Oximeter] 78 78 Respiratory Rate 20 20 20 Blood Pressure [Left Arm] 135/77 Pulse Ox 92 92 Assessment and Plan: 1. As per discharge assessments above 2. Disposition: Home 3. Condition on discharge, stable and improved. 4. Diet: regular diet 5. Activities: resume normal activities 6. Follow-Up: 1. PCP follow-up appointment was made automatically by MIL[facility] Tavarez 2. 7. Medications at the Time of Discharge: Home Medications Medication Instructions Recorded Confirmed Type Multivitamin [Daily Vitamin] 1 tab PO DAILY tab 11/03/13 04/24/18 History Cholecalciferol (Vitamin D3) 1 cap PO QD #30 cap 05/19/14 04/24/18 History [Vitamin D3] Omeprazole 1 cap PO QD PRN #30 cap 11/21/15 04/24/18 History morphine ER 30 mg tablet,extended 30 mg PO QID #90 tab 03/19/17 04/24/18 History release naloxone 4 mg/actuation nasal spray 4 mg INASL ONCE PRN 03/19/17 04/24/18 History pregabalin 100 mg capsule 100 mg PO BID #90 cap 03/19/17 04/24/18 History conjugated estrogens 0.625 mg/gram 1 applic VAGINAL .weekly #30 g 04/03/17 04/24/18 Rx vaginal cream budesonide-formoterol HFA 160 2 puff INH BID #1 inh 08/21/17 04/24/18 Rx mcg-4.5 mcg/actuation aerosol inhaler estradiol 0.05 mg/24 hr weekly 1 patch TRANSDERM 2XW #8 ea 09/09/17 04/24/18 Rx transdermal patch albuterol sulfate HFA 90 2 puff INH Q4-6H PRN #18 g 01/27/18 04/24/18 Rx mcg/actuation aerosol inhaler pen needle, diabetic 31 gauge x 1 ea MISCELLANEOUS BID #60 unit 01/27/18 04/24/18 Rx 3/16" simvastatin 80 mg tablet 80 mg PO QDAY #90 tab 01/27/18 04/24/18 Rx sitagliptin 50 mg-metformin 1,000 1 tab PO BID #60 tab 01/28/18 04/24/18 Rx mg tablet oxygen-air delivery systems device See Dose Instructions .ROUTE 02/06/18 04/24/18 History .MEDSUPPLY #1 sertraline 50 mg tablet 50 mg PO QDAY tab 02/06/18 04/24/18 History sodium chloride 0.9 % topical spray 1 applic TOPICAL BID #1 spray 02/06/18 04/24/18 Rx furosemide 20 mg tablet 20 mg PO BID #60 tab 03/10/18 04/24/18 Rx insulin aspar prt-insulin aspart 35 unit SUBCUT QPM #15 ml 04/01/18 04/24/18 Rx 100 unit/mL (70-30) subcutaneous soln insulin aspar prt-insulin aspart 45 unit SUBCUT QAM #15 ml 04/01/18 04/24/18 Rx 100 unit/mL (70-30) subcutaneous soln montelukast 10 mg tablet 10 mg PO QPM #30 tab 04/01/18 04/24/18 Rx tiotropium bromide 18 mcg capsule 18 mcg INH QD #30 inhaler 04/01/18 04/24/18 Rx with inhalation device Amoxicill/Clav 875/125mg 1 ea PO BID #20 tab 04/26/18 Rx [Augmentin 875/125mg] 8. Time, care, counseling and coordination of care for this discharge is greater than 30 minutes. Exam - Vitals Vital Signs: Vital Signs Temperature 97.3 F Temperature Source Temporal Artery Scan Pulse Rate [Pulse Oximeter] 78 Pulse Rate 78 Respiratory Rate 20 Blood Pressure [Left Arm] 135/77 Pulse Ox 92 Oxygen Flow Rate 2 Oxygen Delivery Method Nasal Cannula Height 5 ft 8 in Weight 234 lb 3.2 oz Patient Problems - Patient Problem List (1) Congestive heart failure Current Visit: Yes Status: Acute Code(s): I50.9 - Heart failure, unspecified Category: Medical (2) COPD exacerbation Current Visit: Yes Status: Acute Code(s): J44.1 - Chronic obstructive pulmon andi disease with (acute) exacerbation Category: Medical (3) Diabetic foot ulcer Current Visit: No Status: Acute Code(s): E11.621 - Type 2 diabetes mellitus with foot ulcer; L97.509 - Non-pressure chronic ulcer of other part of unspecified foot with unspecified severity Category: Medical (4) Pneumonia Current Visit: Yes Status: Acute Code(s): J18.9 - Pneumonia, unspecified organism Category: Medical (5) RSV (respiratory syncytial virus infection) Current Visit: Yes Status: Acute Code(s): B97.4 - Respiratory syncytial virus as the cause of diseases classified elsewhere Category: Medical
[2018-04-26] MEDS: metFORMIN 500 MG TABLET PO SCH (10:14)
[2018-04-26] MEDS: MORPHINE SULFATE 30 MG ER TABLET PO SCH ×2 (10:14→11:58)
[2018-04-26 10:36] VITALS: RESP 18; O2SAT 93
--- NOTE | 2018-04-27 12:57 | PTI REPORT ---
Thank you for the referral of Mignon Westbrook. She was seen on 04/26/18 for an inpatient evaluation for wound care. SUBJECTIVE: The patient is a 62-year-old female. The patient reports she came to the hospital approximately two days ago due to pneumonia as well as a blood clot and is hoping to be discharged soon. She believes she has an appointment with Sebastian Coello tomorrow for wound care for her feet. Her past medical history includes amputation of all of the metatarsals and digits of the right lower extremity. PAST MEDICAL HISTORY: Past medical history can be found in the patient's medical record. OBJECTIVE FINDINGS: Pain: The patient denies any pain nor much feeling in bilateral feet. General observations: The patient presents with open wounds on the left heel, the right distal anterior blackwell, and the great toe on the left lower extremity as well as the base of the second toe and on the lateral malleoli with delayed healing due to Diabetes. Please see the nurse's notes for pictures and measurements. Bed mobility/Transfers: The patient was able to perform all bed mobility and transfers independently. Ambulation: The patient is able to ambulate without the use of an assistive device and stand by assistance within the room safely. Activities of daily living: The patient is able to perform all toileting activities and dressing activities independently. ASSESSMENT: Problem List: Delayed wound healing Risk of infection Physical Therapy Goals: To be met by discharge from inpatient: Patient will promote clean wound healing. TREATMENT PLAN: Patient will be seen on a PRN basis for wound care as needed. INITIAL TREATMENT: Treatment today consisted of the initial evaluation followed by removing old bandages and washing bilateral lower extremities with soap and water, rinsing with water and a dry towel, and cleansing all open areas with wound cleanser. The right heel, left distal anterior leg, and left lateral malleoli were covered with Mepilex as well as tape and 4X4 used on the left great toe and base of the second toe. With all dressing material provided by the third floor. It was observed the patient was able to perform toileting activities and all ambulatory activities with stand by assistance only. ANTONIETTA
== END 2018-04-26 12:52 | disposition home or self-care (01) | DRG 190 ==
LOC: ER 14:26 → MED/SURG 17:23
PROVIDERS: ADMIT Internal Medicine; ATTEND Internal Medicine